=== PATIENT | male | born 1950 | race Caucasian/White ===

== ENCOUNTER 2018-05-03 21:03 | Observation (INO) | payer MEDICARE ==
[~2018-05-03] VITALS: Ht 180.3 cm; Wt 96.6 kg
--- OUTSIDE RECORDS SUMMARY | 2018-05-03 21:06 | XMS REPORT | Clinical Summary ---
Author Author [facility] Address Unknown Phone Unavailable Care Team Providers Care Fuel Cell Binder Name Role Phone Sharpless PCP Allergies No Known Allergies Medications End Date Status Medication Sig Dispensed Refills Start Date Active allopurinol (ZYLOPRIM) Take 300 mg 0 300 MG tablet by mouth daily. Active ferrous sulfate 325 (65 Take 325 mg 0 FE) MG tablet by mouth daily with breakfast. Active sodium chloride, Take 3 mLs by 120 mL 1 hypertonic, (HYPER-JUDI) 7 nebulization 8 % nebulizer solution 2 (two) times daily. Active albuterol (PROVENTIL) 2.5 Take 0.5 mLs 30 mL 0 mg/0.5 mL Nebu nebulizer (2.5 mg 8 solution total) by nebulization 2 (two) times daily. 08/22/2017 Discontinued ibuprofen (ADVIL,MOTRIN) Take 200 mg 0 200 MG tablet by mouth every 6 (six) hours as needed for Pain. 07/25/2017 Discontinued amoxicillin-clavulanate Take 1 tablet 42 tablet 0 (AUGMENTIN) 875-125 mg by mouth 8 per tablet every 12 (twelve) hours for 21 days. 07/25/2017 Discontinued albuterol (PROVENTIL) 2.5 Take 0.5 mLs 30 mL 0 mg/0.5 mL Nebu nebulizer (2.5 mg 8 solution total) by nebulization 2 (two) times daily. 08/15/2017 amoxicillin-clavulanate Take 1 tablet 42 tablet 0 (AUGMENTIN) 875-125 mg by mouth 8 per tablet every 12 (twelve) hours for 21 days. 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) (Primary Dx) 08/22/2017 Orders Only Lab Parth Everett MD Malignant neoplasm of lower lobe, right bronchus or lung (HCC) 08/22/2017 Hospital Radiology Encounter Parth Everett MD Malignant neoplasm of lower lobe, right bronchus or lung (HCC) (Primary Dx) 08/17/2017 Outside Orders Central Scheduling System, Provider Not In 08/11/2017 Outside Orders Central Scheduling Jovany Lamb MD 07/20/2017 Anesthesia Gastroenterology Event Marv Navarro MD COLONOSCOPY,POLYPECTOMY 07/20/2017 Surgery Gastroenterology Linda Tomlin MD 07/19/2017 Anesthesia Gastroenterology Event Grant Rasheed MD BRONCHOSCOPY 07/19/2017 Surgery Gastroenterology Grant Rasheed MD Rehman, Javed, MD Hemoptysis (Primary Dx) 07/19/2017 Hospital Cardiology - Encounter 07/25/2017 after 05/02/2017 Family History Medical History Relation Name Comments COPD Daughter Cancer Daughter Arthritis Father Cancer Father Heart disease Father Kidney disease Father Cancer Mother Relation Name Status Comments Daughter Father Mother Social History Date Tobacco Use Types Packs/Day Years Used Quit: 07/24/1997 Former Smoker Smokeless Tobacco: Never Used Alcohol Use Drinks/Week oz/Week Comments Yes pint of whiskey per week Sex Assigned at Date Recorded Not on file Industry Job Start Date Occupation Not on file Not on file Not on file Travel End Travel History Travel Start No recent travel history available. Last Filed Vital Signs Time Taken Vital Sign Reading 08/22/2017 1:50 PM CDT Blood Pressure 117/74 08/22/2017 1:50 PM CDT Pulse 85 08/22/2017 12:30 PM CDT Temperature 36.6 C (97.8 F) 08/22/2017 1:50 PM CDT Respiratory Rate 22 08/22/2017 1:50 PM CDT Oxygen Saturation 99% 07/24/2017 9:13 PM CDT Inhaled Oxygen 21% Concentration 07/20/2017 8:51 AM CDT Weight 90.3 kg (199 lb) 07/19/2017 5:52 PM CDT Height 180.3 cm (5' 11") 07/20/2017 8:51 AM CDT Body Mass Index 27.75 Plan of Treatment Not on file Procedures Comments Procedure Name Priority Date/Time Associated Diagnosis IR TUNNELED CATHETER Routine 08/22/2017 Malignant neoplasm of REMOVAL 2:07 PM CDT lower lobe, right bronchus or lung (HCC) PLATELET COUNT STAT 08/22/2017 Malignant neoplasm of 11:37 AM CDT hilus of right lung (HCC) PROTHROMBIN TIME/INR STAT 08/22/2017 Malignant neoplasm of 11:37 AM CDT hilus of right lung (HCC) APTT STAT 08/22/2017 Malignant neoplasm of 11:37 AM CDT hilus of right lung (HCC) RHYTHM STRIP - SCAN 07/26/2017 1:30 PM CDT TISSUE EXAM AP Routine 07/25/2017 3:53 PM CDT US CORE BIOPSY Routine 07/25/2017 10:01 AM CDT CBC W/PLT COUNT & AUTO Routine 07/25/2017 DIFFERENTIAL 5:43 AM CDT BASIC METABOLIC PANEL (7) Routine 07/25/2017 5:43 AM CDT CBC W/PLT COUNT & AUTO Routine 07/25/2017 DIFFERENTIAL 5:43 AM CDT CBC W/PLT COUNT & AUTO Routine 07/24/2017 DIFFERENTIAL 5:34 AM CDT BASIC METABOLIC PANEL (7) Routine 07/24/2017 5:34 AM CDT CBC W/PLT COUNT & AUTO Routine 07/24/2017 DIFFERENTIAL 5:34 AM CDT BLOOD CULTURE Routine 07/23/2017 6:07 AM CDT BLOOD CULTURE Routine 07/23/2017 5:12 AM CDT MR BRAIN WITHOUT & WITH Routine 07/22/2017 IV CONTRAST 10:11 PM CDT TRANSFUSION SERVICE 07/22/2017 REPORT - SCAN 5:42 PM CDT XR CHEST 1 VIEW STAT 07/22/2017 PORTABLE/BEDSIDE 3:48 PM CDT NM BONE SCAN WHOLE BODY Routine 07/22/2017 1:53 PM CDT CBC W/PLT COUNT & AUTO Routine 07/22/2017 DIFFERENTIAL 5:11 AM CDT BASIC METABOLIC PANEL (7) Routine 07/22/2017 5:11 AM CDT CBC W/PLT COUNT & AUTO Routine 07/22/2017 DIFFERENTIAL 5:11 AM CDT PREPARE LEUKO-REDUCED RBC Routine 07/21/2017 11:[address] ABDOMEN/PELVIS WITH IV Routine 07/21/2017 CONTRAST 10:35 PM CDT TRANSFUSION SERVICE 07/21/2017 REPORT - SCAN 5:42 PM CDT VANCOMYCIN LEVEL, TROUGH Timed 07/21/2017 12:21 PM CDT CBC W/PLT COUNT & AUTO Routine 07/21/2017 DIFFERENTIAL 4:50 AM CDT BASIC METABOLIC PANEL (7) Routine 07/21/2017 4:50 AM CDT CBC W/PLT COUNT & AUTO Routine 07/21/2017 DIFFERENTIAL 4:50 AM CDT TRANSFUSION SERVICE 07/20/2017 REPORT - SCAN 5:[address] CHEST PE TEST DESIGN Routine 07/20/2017 4:48 PM CDT (CELLAVISION MANUAL DIFF) Routine 07/20/2017 1:19 PM CDT CBC W/PLT COUNT & AUTO Routine 07/20/2017 DIFFERENTIAL 1:19 PM CDT B-TYPE NATRIURETIC FACTOR Routine 07/20/2017 (BNP) 1:19 PM CDT BASIC METABOLIC PANEL (7) Routine 07/20/2017 1:19 PM CDT CBC W/PLT COUNT & AUTO Routine 07/20/2017 DIFFERENTIAL 1:19 PM CDT REPORT OF PROCEDURE - 07/20/2017 ENDOSCOPY URL 10:46 AM CDT REPORT OF PROCEDURE - 07/20/2017 ENDOSCOPY URL 9:53 AM CDT TISSUE EXAM AP Routine 07/20/2017 9:25 AM CDT TRANSFUSE LEUKO-REDUCED Routine 07/20/2017 RED BLOOD CELLS 8:05 AM CDT COLONOSCOPY,BIOPSY 07/20/2017 Iron deficiency anemia 8:00 AM CDT due to chronic blood loss UPPER ENDOSCOPY,BIOPSY 07/20/2017 Iron deficiency anemia 8:00 AM CDT due to chronic blood loss COLONOSCOPY,POLYPECTOMY 07/20/2017 Iron deficiency anemia 8:00 AM CDT due to chronic blood loss TRANSFUSION REACTION STAT 07/20/2017 INVESTIGATION 7:19 AM CDT TRANSFUSE LEUKO-REDUCED Routine 07/20/2017 RED BLOOD CELLS 2:44 AM CDT URINE CULTURE Routine 07/19/2017 10:50 PM CDT URINALYSIS W/ MICROSCOPIC Routine 07/19/2017 10:38 PM CDT XR CHEST 1 VIEW STAT 07/19/2017 PORTABLE/BEDSIDE 9:01 PM CDT POCT-LACTIC ACID, VENOUS Routine 07/19/2017 6:27 PM CDT MISCELLANEOUS LAB ORDER Routine 07/19/2017 6:24 PM CDT BLOOD CULTURE Routine 07/19/2017 6:24 PM CDT BLOOD CULTURE Routine 07/19/2017 6:22 PM CDT TYPE AND SCREEN, LORRI 07/19/2017 AUTOMATED 4:17 PM CDT HEMOGLOBIN AND HEMATOCRIT STAT 07/19/2017 3:44 PM CDT TISSUE EXAM AP Routine 07/19/2017 1:39 PM CDT FUNGUS CULTURE + SMEAR Routine 07/19/2017 1:33 PM CDT AFB CULTURE + SMEAR Routine 07/19/2017 1:33 PM CDT BRONCHIAL CULTURE + GRAM Routine 07/19/2017 STAIN 1:33 PM CDT SPIN/CONCENTRATION CHARGE Routine 07/19/2017 1:33 PM CDT REPORT OF PROCEDURE - 07/19/2017 ENDOSCOPY URL 1:26 PM CDT EBUS FNA REQUEST Routine 07/19/2017 1:00 PM CDT FINE NEEDLE ASPIRATE BY AP Routine 07/19/2017 EBUS 1:00 PM CDT FLOW CYTOMETRY Routine 07/19/2017 REQUISITION 12:53 PM CDT FLOW CYTOMETRY Routine 07/19/2017 12:53 PM CDT EBUS FNA REQUEST Routine 07/19/2017 12:50 PM CDT FINE NEEDLE ASPIRATE BY AP Routine 07/19/2017 EBUS 12:50 PM CDT BASIC METABOLIC PANEL (7) Routine 07/19/2017 11:48 AM CDT CBC (HEMOGRAM ONLY) Routine 07/19/2017 11:48 AM CDT BRONCHOSCOPY,ENDOBRONCHIA 07/19/[address] scan L ULTRASOUND (EBUS) 11:00 AM CDT DIAGNOSTIC/ THERAPEUTIC Case Notes Cinthya changed date Special Needs EBUS BRONCHOSCOPY,BIOPSY 07/19/[address] scan 11:00 AM CDT Case Notes Cinthya changed date Special Needs EBUS BRONCHOSCOPY 07/19/[address] scan 11:00 AM CDT Case Notes Cinthya changed date Special Needs EBUS after 05/02/2017 Results * IR Tunneled Catheter Removal (08/22/2017 2:07 PM CDT) Narrative Performed At FINAL REPORT [facility] Right internal jugular chest port insertion History: Lung cancer. Modality: Sonography and fluoroscopy. Sedation: No sedation was administered. Local anesthesia was achieved with lidocaine 1%. Public Employment Mediator:Claude Hameed MD Financial Administrator:Marquez Pendleton Approach: Right internal jugular vein Estimated blood loss:< 5 cc. Specimen: None. Fluoroscopy Time: 0.8 min. Reference Air Kerma (Ka, r): 10.8 mGy. Technique: Informed written consent was obtained. Discussion of risks, benefits, and alternatives were made with the patient. The patient expressed understanding and agreed to proceed.A universal timeout was performed prior to starting the procedure.All elements maximal sterile barrier technique was utilized for this procedure, including utilization of sterile scrub solution for skin prep, a large sterile sheet to cover the areas of the patient that were not prepped, and hand hygiene, mask, head covering, and sterile gown for performing radiologist and scrub technologist. The skin was anesthetized with 2% lidocaine.Ultrasound evaluation showed a patent and compressible right internal jugular vein, which was punctured under direct real-time ultrasound guidance with a micropuncture needle.An ultrasound image was saved to PACS. A 0.018 inch wire was placed through the needle into the right atrium. A 4 Azerbaijani micropuncture sheath was placed. A subcutaneous tunnel and pocket were created in the right anterior chest wall by blunt dissection.The pocket was flushed with antibiotic solution. A 6F Bard port was placed within the pocket and the catheter brought through the tunnel. The catheter was cut at 20 cm. A peel-away sheath was placed in the right IJ vein and the catheter was advanced through the sheath, with its distal tip terminating in the cavoatrial junction. The peel-away sheath was removed. The port was flushed and aspirated easily following placement.The skin incision was closed with 3-0 running subcuticular Monocryl and Steri-Strips.The small jugular incision site was closed using Steri-Strips.The patient tolerated the procedure well and left the department in the same condition. Patient received 1 gram of Vancomycin intravenously pre-procedure. Results:Spot radiograph of the chest demonstrates the new right IJ Port-A-Cath to lie in the expected position with its tip overlying the cavoatrial junction. Impression: Successful, uncomplicated placement of a right internal jugular chest port. The port is ready for immediate use. Signed: Claude Hameed MD Report Verified Date/Time:08/22/2017 17:17:05 Reading Location: [place] [id number] Angio Body Reading Room Procedure Note Interface, External Ris In - 08/22/2017 5:19 PM CDT FINAL REPORT Right internal jugular chest port insertion History: Lung cancer. Modality: Sonography and fluoroscopy. Sedation: No sedation was administered. Local anesthesia was achieved with lidocaine 1%. Public Employment Mediator: Claude Hameed MD Financial Administrator: Marquez Pendleton Approach: Right internal jugular vein Estimated blood loss: < 5 cc. Specimen: None. Fluoroscopy Time: 0.8 min. Reference Air Kerma (Ka, r): 10.8 mGy. Technique: Informed written consent was obtained. Discussion of risks, benefits, and alternatives were made with the patient. The patient expressed understanding and agreed to proceed. A universal timeout was performed prior to starting the procedure. All elements maximal sterile barrier technique was utilized for this procedure, including utilization of sterile scrub solution for skin prep, a large sterile sheet to cover the areas of the patient that were not prepped, and hand hygiene, mask, head covering, and sterile gown for performing radiologist and scrub technologist. The skin was anesthetized with 2% lidocaine. Ultrasound evaluation showed a patent and compressible right internal jugular vein, which was punctured under direct real-time ultrasound guidance with a micropuncture needle. An ultrasound image was saved to PACS. A 0.018 inch wire was placed through the needle into the right atrium. A 4 Azerbaijani micropuncture sheath was placed. A subcutaneous tunnel and pocket were created in the right anterior chest wall by blunt dissection. The pocket was flushed with antibiotic solution. A 6F Bard port was placed within the pocket and the catheter brought through the tunnel. The catheter was cut at 20 cm. A peel-away sheath was placed in the right IJ vein and the catheter was advanced through the sheath, with its distal tip terminating in the cavoatrial junction. The peel-away sheath was removed. The port was flushed and aspirated easily following placement. The skin incision was closed with 3-0 running subcuticular Monocryl and Steri-Strips. The small jugular incision site was closed using Steri-Strips. The patient tolerated the procedure well and left the department in the same condition. Patient received 1 gram of Vancomycin intravenously pre-procedure. Results: Spot radiograph of the chest demonstrates the new right IJ Port-A-Cath to lie in the expected position with its tip overlying the cavoatrial junction. Impression: Successful, uncomplicated placement of a right internal jugular chest port. The port is ready for immediate use. Signed: Claude aHmeed MD Report Verified Date/Time: 08/22/2017 17:17:05 Reading Location: [facility] B1 [id number] Angio Body Reading Room Performing Organization Address [facility] Phone Number GE [facility] * aPTT (08/22/2017 11:37 AM CDT) PTT 27.8 22.5 - 36.0 seconds [facility] Specimen Blood Performing Organization Address [facility] Phone Number [place] [phone] * Prothrombin time/INR (08/22/2017 11:37 AM CDT) Protime 13.2 11.7 - 14.7 seconds [facility] INR 1.0 <=5.9 [facility] Specimen Blood Narrative Performed At RECOMMENDED COUMADIN/WARFARIN INR THERAPY RANGES [facility] STANDARD DOSE: 2.0 - 3.0 Includes: PROPHYLAXIS for venous thrombosis, [facility] systemic embolization; TREATMENT for venous thrombosis and/or pulmonary embolus. HIGH RISK: Target INR is 2.5-3.5 for patients with mechanical heart valves. Performing Organization Address [facility]/[employer] [place] [address] [phone] [place] [address] * Platelet count (08/22/2017 11:37 AM CDT) Platelets 246 150 - 450 K/CU MM [facility] Specimen Blood Performing Organization Address City/[facility]/[employer] Phone Number [facility] [address] [address] [facility] * RHYTHM STRIP - SCAN (07/26/2017 1:30 PM CDT) Narrative Performed At * Tissue Exam (07/25/2017 3:53 PM CDT) Only the most recent of 3 results within the time period is included. Case Report Surgical Pathology [facility] Report [facility] Case: [id number] Authorizing Provider:Grant Rasheed MDCollecte d: 07/25/2017 1553 Ordering Location: [address] Received: 07/25/2017 1554 Service Pathologist: Josue Elliott MD Specimen:Leg, Left DIAGNOSIS PART A LEFT LEG MASS, BIOPSY: [facility] INVASIVE CARCINOMA WITH [facility] SQUAMOUS DIFFERENTIATION. Signing Pathologist Direct Phone Line: [phone] COMMENT Immunohistochemical studies [facility] performed on block A1 [facility] demonstrate the neoplastic cells to be positive for p40. They are negative for CK7 and CK20. CPT Code(s) 09315, 55336, [address]37 [facility] CLINICAL HISTORY Left leg mass concerning for [facility] mets, known lung cancer [facility] SPECIMEN SOURCE Left leg mass biopsy [facility] GROSS DESCRIPTION The specimen is received in a [facility] formalin-filled container and [facility] labeled with the patient's information and labeled "left leg mass biopsy" and consists of three off white core biopsies ranging in length from 1 to 1.7 cm, submitted A1. CG/pl SPECIAL STUDIES The following special studies [facility] were performed on this case [facility] and the interpretation is incorporated in the diagnostic report above: BLOCK A1- P40, CK7, CK20 The immunohistochemistry test was developed and its performance characteristics determined by [facility], Pathology Laboratory. It has not been cleared or approved by the U.S. Food and Drug Administration. The FDA has determined that such clearance or approval is not necessary. The test is used for clinical purposes. It should not be regarded as investigational or for research. This laboratory is certified under the Clinical Laboratory Improvement Amendments of 1988 (CLIA-88) as qualified to perform high complexity clinical laboratory testing. Specimen Tissue - Leg, Left Performing Organization Address City/State/Zipcode Phone Number [facility] [address] [place] [address] [facility] * US Core Biopsy (07/25/2017 10:01 AM CDT) Narrative Performed At FINAL REPORT [facility] PROCEDURE: Ultrasound-guided core biopsy of left thigh mass. INDICATION: 66-year-old man with left leg mass. COMPARISON: None. DESCRIPTION: After obtaining informed written consent, the patient was brought to the procedure room and placed in the supine position. Preliminary ultrasound scan of the left thigh revealed a 4.3 x 1.6 x 2.7 cm hypoechoic mass in the subcutaneous tissues of the anterior left thigh correlating with area of palpable abnormality. This mass was targeted for biopsy. The overlying skin was prepped and draped in the usual, sterile fashion and local 1% lidocaine anesthesia was administered. Under ultrasound guidance, three core biopsy samples of the mass were obtained using an 18-gauge Argon core biopsy needle. Follow-up exam revealed no evidence for hematoma. There were no immediate complications. IMPRESSION: Uncomplicated ultrasound-guided core biopsy of left thigh mass. Signed: Jimmy Lam MD Report Verified Date/Time:07/25/2017 10:14:14 Reading Location: [facility] [id number] Ultrasound Reading Room Procedure Note Interface, External Ris In - 07/25/2017 10:16 AM CDT FINAL REPORT PROCEDURE: Ultrasound-guided core biopsy of left thigh mass. INDICATION: 66-year-old man with left leg mass. COMPARISON: None. DESCRIPTION: After obtaining informed written consent, the patient was brought to the procedure room and placed in the supine position. Preliminary ultrasound scan of the left thigh revealed a 4.3 x 1.6 x 2.7 cm hypoechoic mass in the subcutaneous tissues of the anterior left thigh correlating with area of palpable abnormality. This mass was targeted for biopsy. The overlying skin was prepped and draped in the usual, sterile fashion and local 1% lidocaine anesthesia was administered. Under ultrasound guidance, three core biopsy samples of the mass were obtained using an 18-gauge Argon core biopsy needle. Follow-up exam revealed no evidence for hematoma. There were no immediate complications. IMPRESSION: Uncomplicated ultrasound-guided core biopsy of left thigh mass. Signed: Jimmy Lam MD Report Verified Date/Time: 07/25/2017 10:14:14 Reading Location: [facility] [id number] Ultrasound Reading Room Performing Organization Address City/State/Zipcode Phone Number [facility] * CBC with platelet count + automated diff (07/25/2017 5:43 AM CDT) Only the most recent of 5 results within the time period is included. WBC 10.2 3.5 - 10.5 K/L [facility] RBC 3.88 (L) 4.63 - 6.08 M/L [facility] Hemoglobin 8.9 (L) 13.7 - 17.5 GM/DL [facility] Hematocrit 29.4 (L) 40.1 - 51.0 % [facility] MCV 75.8 (L) 79.0 - 92.2 fL [facility] MCH 22.9 (L) 25.7 - 32.2 pg [facility] MCHC 30.3 (L) 32.3 - 36.5 GM/DL [facility] RDW 19.2 (H) 11.6 - 14.4 % [facility] Platelets 541 (H) 150 - 450 K/CU MM [facility] MPV 8.6 (L) 9.4 - 12.4 fL [facility] nRBC 0 0 - 0 /100 WBC [facility] % Neutros 71 % [facility] % Lymphs 20 % [facility] % Monos 6 % [facility] % Eos 2 % [facility] % Baso 1 % [facility] # Neutros 7.22 (H) 1.78 - 5.38 K/L [facility] # Lymphs 2.04 1.32 - 3.57 K/L [facility] # Monos 0.62 0.30 - 0.82 K/L [facility] # Eos 0.24 0.04 - 0.54 K/L [facility] # Baso 0.05 0.01 - 0.08 K/L [facility] Immature 1 0 - 1 % [facility] Granulocytes-[facility] Specimen Blood Performing Organization Address City/State/Zipcode Phone Number [facility] [address] [place] [address] MEDICAL CENTER * Basic Metabolic Panel (07/25/2017 5:43 AM CDT) Only the most recent of 6 results within the time period is included. Sodium 136 136 - 145 meq/L [facility] Potassium 3.9 3.5 - 5.1 meq/L [facility] Chloride 99 98 - 107 meq/L [facility] CO2 28 22 - 29 meq/L [facility] BUN 8 7 - 21 mg/dL [facility] Creatinine 0.68 0.57 - 1.25 mg/dL [facility] Glucose 97 70 - 105 mg/dL [facility] Calcium 7.9 (L) 8.4 - 10.2 mg/dL [facility] EGFR 117Comment: ESTIMATED GFR IS mL/min/1.73 sq m [facility] NOT ACCURATE CREATININE [facility] CLEARANCE IN PREDICTING GLOMERULAR FILTRATION RATE. ESTIMATED GFR IS NOT APPLICABLE FOR DIALYSIS PATIENTS. Specimen Blood Performing Organization Address City/State/Zipcode Phone Number [facility] [address] [place] [address] [facility] * Blood culture (07/23/2017 6:07 AM CDT) Only the most recent of 4 results within the time period is included. Result No growth in 5 days [facility] Specimen Blood - Central Venous Line Performing Organization Address City/State/Zipcode Phone Number [facility] [address] [place] [address] [facility] * MR brain without & with IV contrast (07/22/2017 10:11 PM CDT) Narrative Performed At FINAL REPORT [employer] [facility] Exam: MRI brain with and without contrast Comparison:No prior study for comparison. Reason for exam: lung cancer. for staging Discussion: Multiplanar multi sequential MR imaging of the brain was performed [id number] IV gadolinium administration. There are multiple punctate FLAIR hyperintensities in the bilateral subcortical and periventricular white matter without mass effect, nonspecific. There is no intracranial mass, mass effect, extra-axial collection, hydrocephalus or herniation.There is no restricted diffusion to suggest an acute infarct. There is no abnormality on susceptibility sequences to suggest hemorrhage or hemosiderin deposition. There is no abnormal enhancement. The skull base flow-voids are seen in keeping with their patency. There is moderate pansinus mucosal inflammatory disease. The visualized mastoid air cells are clear. The orbits, sella and parasellar regions are unremarkable. There is asymmetric thickening of the right occipital condyle without abnormal signal or enhancement, which may be congenital or posttraumatic. Impressions: No evidence of intracranial metastases. Multiple punctate FLAIR white matter hyperintensities, nonspecific but may represent white matter microvascular ischemic change. Asymmetric thickening of the right occipital bone without abnormal signal or enhancement which may be congenital or posttraumatic. Noncontrast cervical spine CT is recommended for further evaluation. Signed: Sagar Munoz MD Report Verified Date/Time:07/22/2017 23:58:16 Reading Location: [address] Reading Room Procedure Note Interface, External Ris In - 07/23/2017 12:00 AM CDT FINAL REPORT Exam: MRI brain with and without contrast Comparison: No prior study for comparison. Reason for exam: lung cancer. for staging Discussion: Multiplanar multi sequential MR imaging of the brain was performed [id number] IV gadolinium administration. There are multiple punctate FLAIR hyperintensities in the bilateral subcortical and periventricular white matter without mass effect, nonspecific. There is no intracranial mass, mass effect, extra-axial collection, hydrocephalus or herniation. There is no restricted diffusion to suggest an acute infarct. There is no abnormality on susceptibility sequences to suggest hemorrhage or hemosiderin deposition. There is no abnormal enhancement. The skull base flow-voids are seen in keeping with their patency. There is moderate pansinus mucosal inflammatory disease. The visualized mastoid air cells are clear. The orbits, sella and parasellar regions are unremarkable. There is asymmetric thickening of the right occipital condyle without abnormal signal or enhancement, which may be congenital or posttraumatic. Impressions: No evidence of intracranial metastases. Multiple punctate FLAIR white matter hyperintensities, nonspecific but may represent white matter microvascular ischemic change. Asymmetric thickening of the right occipital bone without abnormal signal or enhancement which may be congenital or posttraumatic. Noncontrast cervical spine CT is recommended for further evaluation. Signed: Sagar Munoz MD Report Verified Date/Time: 07/22/2017 23:58:16 Reading Location: [address] Transitional Reading Room Performing Organization Address City/State/Zipcode Phone Number [facility] * TRANSFUSION SERVICE REPORT - SCAN (07/22/2017 5:42 PM CDT) Only the most recent of 3 results within the time period is included. Narrative Performed At * XR chest 1 view portable / bedside (07/22/2017 3:48 PM CDT) Only the most recent of 2 results within the time period is included. Narrative Performed At FINAL REPORT [facility] Chest one view AP 07/22/2017 3:55 PM CLINICAL INDICATION: post picc line insertion COMPARISON: 07/19/2017 IMPRESSION: The tip of a right PICC projects over the superior vena cava. Pleural parenchymal opacity in the right lower lung and hemithorax is unchanged. A large volume hiatal hernia remains evident, with compressive atelectasis in the adjacent left lower lung. Cardiomediastinal contours are stable. The central pulmonary vasculature is not engorged. Signed: Elio Reagan MD Report Verified Date/Time:07/22/2017 15:56:09 Reading Location: [facility] C013 Consult Reading Room Procedure Note Interface, External Ris In - 07/22/2017 5:22 PM CDT FINAL REPORT Chest one view AP 07/22/2017 3:55 PM CLINICAL INDICATION: post picc line insertion COMPARISON: 07/19/2017 IMPRESSION: The tip of a right PICC projects over the superior vena cava. Pleural parenchymal opacity in the right lower lung and hemithorax is unchanged. A large volume hiatal hernia remains evident, with compressive atelectasis in the adjacent left lower lung. Cardiomediastinal contours are stable. The central pulmonary vasculature is not engorged. Signed: Elio Reagan MD Report Verified Date/Time: 07/22/2017 15:56:09 Reading Location: [facility] C013 Consult Reading Room Performing Organization Address City/State/Zipcode Phone Number [facility] * NM bone scan whole body (07/22/2017 1:53 PM CDT) Narrative Performed At FINAL REPORT [facility] PROCEDURE: BONE SCAN, WHOLE BODY CPT CODE:42297 INDICATION:Non-small cell lung cancer staging PROTOCOL:22.0 mCi of Tc-99m MDP was injected intravenously. Whole body and selected spot images were obtained approximately 3 hours later. FINDINGS: -Focal area of mildly increased uptake at the left 5th costochondral cartilage. -Moderate increase in activity in the left foot, predominantly of the ankle and first MTP joint. -Mild increase in tracer activity in the shoulders, wrists, knees, and right foot and ankle. IMPRESSION: 1.No evidence of osseous metastatic lesion. 2.Left foot/ankle findings may be degenerative and/or inflammatory (gout) given patient's provided history. 3.Degenerative changes of the spine and peripheral joints. Images for comparison/correlation were chest CT 07/20/2017. Abdomen and pelvis CT 07/21/2017. Signed: Parisa Berger MD Report Verified Date/Time:07/22/2017 15:06:09 Reading Location: [address] [facility] Reading Room Procedure Note Interface, External Ris In - 07/22/2017 3:08 PM CDT FINAL REPORT PROCEDURE: BONE SCAN, WHOLE BODY CPT CODE: [id number] INDICATION: Non-small cell lung cancer staging PROTOCOL: 22.0 mCi of Tc-99m MDP was injected intravenously. Whole body and selected spot images were obtained approximately 3 hours later. FINDINGS: -Focal area of mildly increased uptake at the left 5th costochondral cartilage. -Moderate increase in activity in the left foot, predominantly of the ankle and first MTP joint. -Mild increase in tracer activity in the shoulders, wrists, knees, and right foot and ankle. IMPRESSION: 1.No evidence of osseous metastatic lesion. 2.Left foot/ankle findings may be degenerative and/or inflammatory (gout) given patient's provided history. 3.Degenerative changes of the spine and peripheral joints. Images for comparison/correlation were chest CT 07/20/2017. Abdomen and pelvis CT 07/21/2017. Signed: Parisa Berger MD Report Verified Date/Time: 07/22/2017 15:06:09 Reading Location: [address] Med Reading Room Performing Organization Address [facility] Phone Number [facility] * Prepare Leuko-Red RBC (07/21/2017 11:54 PM CDT) CROSSMATCH COMPATIBLE SAFETRACE TX Unit ABO O Pos SAFETRACE TX UNIT NUMBER [id number] SAFETRACE TX Status TRANSFUSED SAFETRACE TX Blood Bank Product RED BLOOD CELLS SAFETRACE TX PRODUCT CODE [id number] SAFETRACE TX CROSSMATCH COMPATIBLE SAFETRACE TX Unit ABO O Pos SAFETRACE TX UNIT NUMBER [id number] SAFETRACE TX Status TRANSFUSED SAFETRACE TX Blood Bank Product RED BLOOD CELLS SAFETRACE TX PRODUCT CODE [id number] SAFETRACE TX Specimen Other Performing Organization Address [facility] Phone Number SAFETRACE TX * CT abdomen/pelvis with IV contrast (07/21/2017 10:35 PM CDT) Narrative Performed At FINAL REPORT [facility] EXAM: CT of the abdomen and pelvis, with contrast CLINICAL HISTORY: Neoplasm. Suspect abdominal metastatic disease. TECHNIQUE: CT of the abdomen and pelvis was performed with intravenous contrast administration.This exam was performed according to our departmental dose optimization program which includes automated exposure control, adjustment of the mA and/or kV according to patient's size and/or use of iterative reconstructive technique. COMPARISON:No prior study for direct comparison. Correlation is made with chest CT 07/20/2017. FINDINGS: LOWER CHEST: Large hiatal hernia/intrathoracic stomach, partially imaged. Partially imaged large masslike lesion in the right lower lobe which may represent necrotic neoplasm however superimposed infection cannot be excluded. Small right pleural effusion. LIVER: Hepatomegaly. No focal lesions. BILE DUCTS: Within normal limits. GALL BLADDER: Within normal limits. PANCREAS: Within normal limits. SPLEEN: Within normal limits. ADRENALS: Within normal limits. KIDNEYS/URETERS: 2.1 x 1.8 cm simple right lower pole cyst. Unremarkable left kidney. No hydronephrosis or radiopaque stones. URINARY BLADDER:Nearly collapsed which limits its evaluation. Mild hyperdensity within the urinary bladder which likely represents contrast. REPRODUCTIVE ORGANS: Within normal limits. BOWEL/MESENTERY: Sigmoid diverticulosis without acute diverticulitis. Mild diffuse mesenteric congestion, nonspecific. No bowel obstruction or abnormal wall thickening. Normal appendix. PERITONEUM/RETROPERITONEUM: No free air, free fluid or fluid collection. VESSELS: Mild atherosclerotic calcifications of the aorta and branches. LYMPH NODES: No abdominal or pelvic lymphadenopathy. SOFT TISSUES: Small fat-containing left inguinal hernia. Moderate fat-containing right periumbilical hernia, with fatty stranding, which may represent edema/venous congestion. BONES: Multilevel degenerative changes of the visualized spine. No suspicious osseous lesions. IMPRESSION: No evidence of metastatic disease in the abdomen or pelvis. Large hiatal hernia/intrathoracic stomach. Hepatomegaly. Small right renal cyst. Small right pleural effusion. Partially imaged lesion in the right lower lobe which may represent necrotic neoplasm however superimposed infection cannot be excluded. Please see separately dictated chest CT for details. Signed: Sagar Munoz MD Report Verified Date/Time:07/22/2017 04:37:15 Reading Location: [address] Transitional Reading Room Procedure Note Interface, External Ris In - 07/22/2017 4:39 AM CDT FINAL REPORT EXAM: CT of the abdomen and pelvis, with contrast CLINICAL HISTORY: Neoplasm. Suspect abdominal metastatic disease. TECHNIQUE: CT of the abdomen and pelvis was performed with intravenous contrast administration. This exam was performed according to our departmental dose optimization program which includes automated exposure control, adjustment of the mA and/or kV according to patient's size and/or use of iterative reconstructive technique. COMPARISON: No prior study for direct comparison. Correlation is made with chest CT 07/20/2017. FINDINGS: LOWER CHEST: Large hiatal hernia/intrathoracic stomach, partially imaged. Partially imaged large masslike lesion in the right lower lobe which may represent necrotic neoplasm however superimposed infection cannot be excluded. Small right pleural effusion. LIVER: Hepatomegaly. No focal lesions. BILE DUCTS: Within normal limits. GALL BLADDER: Within normal limits. PANCREAS: Within normal limits. SPLEEN: Within normal limits. ADRENALS: Within normal limits. KIDNEYS/URETERS: 2.1 x 1.8 cm simple right lower pole cyst. Unremarkable left kidney. No hydronephrosis or radiopaque stones. URINARY BLADDER: Nearly collapsed which limits its evaluation. Mild hyperdensity within the urinary bladder which likely represents contrast. REPRODUCTIVE ORGANS: Within normal limits. BOWEL/MESENTERY: Sigmoid diverticulosis without acute diverticulitis. Mild diffuse mesenteric congestion, nonspecific. No bowel obstruction or abnormal wall thickening. Normal appendix. PERITONEUM/RETROPERITONEUM: No free air, free fluid or fluid collection. VESSELS: Mild atherosclerotic calcifications of the aorta and branches. LYMPH NODES: No abdominal or pelvic lymphadenopathy. SOFT TISSUES: Small fat-containing left inguinal hernia. Moderate fat-containing right periumbilical hernia, with fatty stranding, which may represent edema/venous congestion. BONES: Multilevel degenerative changes of the visualized spine. No suspicious osseous lesions. IMPRESSION: No evidence of metastatic disease in the abdomen or pelvis. Large hiatal hernia/intrathoracic stomach. Hepatomegaly. Small right renal cyst. Small right pleural effusion. Partially imaged lesion in the right lower lobe which may represent necrotic neoplasm however superimposed infection cannot be excluded. Please see separately dictated chest CT for details. Signed: Sagar Munoz MD Report Verified Date/Time: 07/22/2017 04:37:15 Reading Location: [facility] B1 C013T Transitional Reading Room Performing Organization Address City/State/Zipcode Phone Number [facility] * Vancomycin level, trough (07/21/2017 12:21 PM CDT) Vancomycin Tr 9.6 (L) 10.0 - 20.0 ug/mL [facility] Specimen Blood - Arm, Right Performing Organization Address City/State/Zipcode Phone Number [facility] [address] [place] [address] MEDICAL [facility]ENTER * CT chest for pulmonary embolus (07/20/2017 4:48 PM CDT) Narrative Performed At FINAL REPORT [facility] HISTORY: Chest pain, acute, PE suspected, low pretest prob sob, tachy COMPARISON : No prior chest CT is available for comparison. However, a chest x-ray dated 07/19/2017 is available for comparison Technique : Multiple axial images of the chest were performed from the lung apices to the lung bases with 5 mm slice thickness with the administration of IV contrast. Images were further reconstructed with 2 mm slice thickness through the pulmonary arteries. This exam was performed according to our departmental dose optimization program which includes automated exposure control, adjustment of the mA and/or kV according to patient size and/or use of iterative reconstructive technique. Comment: The thyroid gland is within normal limits. There are numerous enlarged mediastinal lymph nodes. For example, there is an enlarged subcarinal lymph node measuring up to 3.8 x 2.3 cm. There is no axillary lymphadenopathy, however. There is atherosclerotic vascular disease with some coronary atherosclerosis. There is a large size hiatal hernia/intrathoracic stomach. The visualized portions of the liver, spleen, adrenal glands, pancreas, and kidneys are within normal limits. Multilevel degenerative changes of the thoracic spine are seen. No pneumothorax is visualized. There is a large masslike area identified occupying the right lower lobe measuring up to 13.8 x 13.0 cm. There are several fluid attenuation spaces identified within this masslike area with the largest measuring up to 5.6 x 4.6 cm. These could represent areas of necrosis or infection. Several of these locules also contain air. No thrombus is identified in the main pulmonary arteries or the major subsegmental branches. Of note, evaluation for thrombus in the smaller subsegmental branches is limited secondary to the inherent technique of the examination. Impression: 1. No pulmonary embolism identified. 2. Large masslike lesion occupying the right lower lobe with cystic/fluid attenuation foci and air. This could represent a large neoplasm with necrosis or superimposed infection. Pneumonitis with areas of abscess formation/necrosis is also in the differential. 3. Multiple enlarged mediastinal lymph nodes. 4. Large sized hiatal hernia/intrathoracic stomach. Signed: Sundeep Monroy MD Report Verified Date/Time:07/20/2017 17:11:25 Reading Location: [facility] C013Y CT Body Reading Room Procedure Note Interface, External Ris In - 07/20/2017 5:13 PM CDT FINAL REPORT HISTORY: Chest pain, acute, PE suspected, low pretest prob sob, tachy COMPARISON : No prior chest CT is available for comparison. However, a chest x-ray dated 07/19/2017 is available for comparison Technique : Multiple axial images of the chest were performed from the lung apices to the lung bases with 5 mm slice thickness with the administration of IV contrast. Images were further reconstructed with 2 mm slice thickness through the pulmonary arteries. This exam was performed according to our departmental dose optimization program which includes automated exposure control, adjustment of the mA and/or kV according to patient size and/or use of iterative reconstructive technique. Comment: The thyroid gland is within normal limits. There are numerous enlarged mediastinal lymph nodes. For example, there is an enlarged subcarinal lymph node measuring up to 3.8 x 2.3 cm. There is no axillary lymphadenopathy, however. There is atherosclerotic vascular disease with some coronary atherosclerosis. There is a large size hiatal hernia/intrathoracic stomach. The visualized portions of the liver, spleen, adrenal glands, pancreas, and kidneys are within normal limits. Multilevel degenerative changes of the thoracic spine are seen. No pneumothorax is visualized. There is a large masslike area identified occupying the right lower lobe measuring up to 13.8 x 13.0 cm. There are several fluid attenuation spaces identified within this masslike area with the largest measuring up to 5.6 x 4.6 cm. These could represent areas of necrosis or infection. Several of these locules also contain air. No thrombus is identified in the main pulmonary arteries or the major subsegmental branches. Of note, evaluation for thrombus in the smaller subsegmental branches is limited secondary to the inherent technique of the examination. Impression: 1. No pulmonary embolism identified. 2. Large masslike lesion occupying the right lower lobe with cystic/fluid attenuation foci and air. This could represent a large neoplasm with necrosis or superimposed infection. Pneumonitis with areas of abscess formation/necrosis is also in the differential. 3. Multiple enlarged mediastinal lymph nodes. 4. Large sized hiatal hernia/intrathoracic stomach. Signed: Sundeep Monroy MD Report Verified Date/Time: 07/20/2017 17:11:25 Reading Location: [facility] C013Y CT Body Reading Room Performing Organization Address City/State/Zipcode Phone Number [facility] * Manual Differential (07/20/2017 1:19 PM CDT) % Neutros 86 % [facility] % Lymphs 9 % [facility] % Monos 4 % [facility] % Bands 1 0 - 10 % [facility] # Neutros 12.13 (H) 1.78 - 5.38 K/ul [facility] # Lymphs 1.27 (L) 1.32 - 3.57 K/ul [facility] # Monos 0.56 0.30 - 0.82 K/uL [facility] # Bands 0.14 0.00 - 0.80 K/uL [facility] Total Counted 100 [facility] Platelet Morphology Normal [facility] Toxic Granulation Present [facility] Anisocytosis 1+ few [facility] Microcytes 1+ few [facility] Poikilocytes 1+ few [facility] Artifact Present [facility] Platelet Conc Adequate [facility] Specimen Blood - Arm, Right Narrative Performed At Received comment: [facility] User comments: [facility] Slide comments: Performing Organization Address City/State/Zipcode Phone Number [facility] [address] [place] [address] [facility] * B-type Natriuretic Factor (BNP) (07/20/2017 1:19 PM CDT) BNP 92 0 - 100 pg/mL [facility] Specimen Blood - Arm, Right Performing Organization Address [facility]/Zipcode Phone Number [facility] [address] [place] [address] [phone] [address] * REPORT OF PROCEDURE - ENDOSCOPY URL (07/20/2017 10:46 AM CDT) Narrative Performed At * REPORT OF PROCEDURE - ENDOSCOPY URL (07/20/2017 9:53 AM CDT) Narrative Performed At * Transfuse Leuko-Red RBC (07/20/2017 8:05 AM CDT) Only the most recent of 3 results within the time period is included. * Transfusion Reaction Investigation (07/20/2017 7:19 AM CDT) TRANSFUSION RX SEE COMMENT [facility] INVESTIGATION(BEAKER) [facility] Specimen Blood Narrative Performed At Symptoms most likely due to underlying disease: The patient had a decrease in O2 [facility] saturation from 96% to 92% after transfusion of RBCs. No other changes in vital [facility] signs noted. Blood bank work-up was negative for evidence of immune mediated [facility] hemolysis or clerical error. Patient has a new diagnosis of lung cancer, normal BNP and O2 saturations prior to transfusion which were also decreased. Symptoms were most likely related to the patient's underlying disease and only temporally associated with transfusion. Electronic Signature: Akiko Johnson M.D. Performing Organization Address [facility]/Zipcode Phone Number [facility] [address] [place] [address] [facility] * Urine culture (07/19/2017 10:50 PM CDT) Result No growth [facility] Specimen Urine - Urine, Voided Performing Organization Address City/[facility]/Zipcode Phone Number [facility] [address] [place] [phone] [facility] * Urinalysis w/Microscopic (07/19/2017 10:38 PM CDT) Color, UA Yellow [facility] Clarity, UA Hazy [facility] Specific [place], UA 1.020 1.001 - 1.035 [facility] pH, UA 5.5 5.0 - 8.0 [facility] Protein, UA 70 mg/dL (A) Negative [facility] Glucose, UA Negative Negative [facility] Ketones, UA Negative Negative [facility] Bilirubin, UA Negative Negative [facility] Blood, UA Negative Negative [facility] Nitrite, UA Negative Negative [facility] Leukocytes, UA Negative Negative [facility] Urobilinogen, UA 4.0 (H) 0.2 - 1.0 mg/dL [facility] RBC, UA 1 /HPF [facility] WBC, UA 1 /HPF [facility] Mucus Moderate [facility] Squam Epithel, UA <1 /HPF [facility] Casts 7 /LPF [facility] Specimen Source [facility] Specimen Urine Performing Organization Address City/State/Zipcode Phone Number [facility] [address] [place] [address] [facility] * POC-Lactic Acid, Venous (07/19/2017 6:27 PM CDT) POC-Lactic Acid, Venous 1.3Comment: TESTED AT [facility] 0.9 - 1.7 mmol/L [address] Specimen Blood Performing Organization Address [facility] [place] [address] [phone] [address] * BCID (07/19/2017 6:24 PM CDT) Scan Result [facility] Specimen Blood Narrative Performed At [facility] Result comments: [facility] HAEMOPHILUS INFLUENZA DETECTED First line therapy: ceftriaxone meropenem if critically ill or history of an ESBL producing pathogen De-escalate based on susceptibilities Other organisms and resistance markers not contained in this PCR panel cannot be excluded and follow-up of traditional culture results is required. This sample was tested at the [facility] Clinical Microbiology Laboratory using the Transpond Blood Culture ID Panel. This test is FDA cleared for in vitro diagnostic use and has been verified and approved by the [facility] Clinical Microbiology laboratory for clinical use. Reference Range: Not Detected Performing Organization Address [facility] Phone Number [address] * Type and screen, automated (07/19/2017 4:17 PM CDT) ABO/RH AUTOMATED (BEAKER) O POSITIVE [facility] Ab Scrn NEGATIVE [facility] Specimen Blood Performing Organization Address City/[facility] Phone Number [address] [address] [phone] [place] [address] * Hemoglobin and hematocrit (07/19/2017 3:44 PM CDT) Hemoglobin 7.9 (L) 13.7 - 17.5 GM/DL [facility] Hematocrit 26.8 (L) 40.1 - 51.0 % [facility] Specimen Blood Performing Organization Address [facility] Phone Number [facility] [address], [place] [phone] [facility] * AFB culture + smear (07/19/2017 1:33 PM CDT) Result No acid-fast bacilli isolated [facility] in 42 days [facility] AFB Smear No acid fast bacilli seen [facility] Specimen Bronch Washing - Lung, Right Performing Organization Address City/[facility]/Zipcode Phone Number [facility] [address] [place] [phone] [facility] * Bronchial culture + gram stain (07/19/2017 1:33 PM CDT) Result HAEMOPHILUS INFLUENZAE [facility] (A)Comment: Beta-lactamase [facility] negative Gram Stain Result 1+ WBCs [facility] Gram Stain Result <1+ gram positive cocci in [facility] chains and pairs [facility] Specimen Bronch Washing - Lung, Right Narrative Performed At 2+ Normal respiratory bethany present [facility] Performing Organization Address City/[facility] Phone Number [address] [address] [phone] [place] [address] * Fungus culture + smear (07/19/2017 1:33 PM CDT) Result No fungus isolated in 28 days [facility] Fungus Smear No fungi seen [facility] Specimen Bronch Washing - Lung, Right Performing Organization Address City/[facility]/Zipcode Phone Number [facility] [address] [place] [address] [phone] [facility] * SPIN/CONCENTRATION CHARGE (07/19/2017 1:33 PM CDT) Concentration charged Done [facility] Specimen Bronch Washing - Lung, Right Performing Organization Address City/[facility]/Zipcode Phone Number [place] [phone] [place] [address] [facility] * REPORT OF PROCEDURE - ENDOSCOPY URL (07/19/2017 1:26 PM CDT) Narrative Performed At * EBUS FNA REQUEST (07/19/2017 1:00 PM CDT) Only the most recent of 2 results within the time period is included. Cytology See Separate Report [facility] Specimen EBUS Fine Needle Aspirate - Lung, Right Lower Lobe Performing Organization Address City/State/Zipcode Phone Number [address] [address] MEDICAL CENTER * Fine Needle Aspiration by EBUS (07/19/2017 1:00 PM CDT) Only the most recent of 2 results within the time period is included. Case Report Medical Cytology [facility] Report [facility] Case: [id number] Authorizing Provider:Grant Rasheed MDCollecte d: 07/19/2017 1300 Ordering Location: [facility] ENDOSCOPY SERVICESReceived: 07/19/2017 1400 Pathologist: Juani Santiago MD Specimen:Lung, Right Lower Lobe, Routine cyto in CRR DIAGNOSIS RIGHT LOWER LOBE LUNG FNA BY [facility] CLINICIAN (CYTOSPINS AND CELL [facility] BLOCK OF ASPIRATE): - SQUAMOUS CELL CARCINOMA (SEE COMMENT) Signing Pathologist Direct Phone Line: [phone] COMMENT Please see cases [id number] and [facility] [id number] [facility] CPT Code(s) 45547, [address] [facility] CLINICAL DATA Right lower lobe lung mass [facility] with mediastinal adenopathy [facility] SPECIMEN SOURCE RIGHT LOWER LOBE LUNG FNA [facility] GROSS DESCRIPTION 25 mls in cytorich red; 4 [facility] cytospins, cell block [facility] Collected: [id number] Received: [id number] MICROSCOPIC DESCRIPTION The cytospins and the [facility] cellblock show squamous cell [facility] carcinoma, moderately differentiated with keratinization and associated with necrosis. Technical component was [facility] performed at Center, Department of [facility] Pathology, [address] [place] [address], Professional component [facility] was performed at Center, Department of [facility] Pathology, [address] [place] [address], Specimen EBUS Fine Needle Aspirate - Lung, Right Lower Lobe Performing Organization Address [facility] Phone Number [address] [phone] [facility] * Flow Cytometry Requisition (07/19/2017 12:53 PM CDT) Flow Cytometry See Separate Report [facility] Case # [id number] [facility] Specimen EBUS Fine Needle Aspirate - Lymph Node, Subcarinal, Station 7 Performing Organization Address [facility] Phone Number [address] [address] [facility] * Flow Cytometry (07/19/2017 12:53 PM CDT) Case Report Flow Cytometry [facility] Report [facility] Case: [id number] Authorizing Provider:Gilbert Burris MDCollecte d: 07/19/2017 1253 Ordering Location: [facility] ENDOSCOPY SERVICESReceived: 07/20/2017 1028 Pathologist: Josue Elliott MD Specimen:Other Flow Interpretation SUBCARINAL LYMPH NODE STATION [place] [address], FLOW CYTOMETRY: [facility] NO MONOCLONAL B CELL POPULATION. NO ABERRANT T CELL POPULATION. LYMPHOID EVENTS ARE SCARCE AND STUDY IS LIMITED. CORRELATION WITH MORPHOLOGIC FINDINGS REQUIRED. CPT Code(s) 55148 [facility] CLINICAL HISTORY Lymphadenopathy [facility] SPECIMEN SOURCE SUBCARINAL LYMPH NODE STATION [address] CELLULAR BIOMARKER CD8, surface-kappa, CD56, [facility] ANALYSIS surface-lambda, CD5, CD19, [facility] CD10, CD3, CD20, CD4, CD45 IMMUNOPHENOTYPIC FINDINGS Specimen Viability: 76.4% [facility] Blasts: A significant blast [facility] population is not identified. Lymphocytes: Bright CD45+ lymphocytes comprise 8.1% of total cells. T cells show a CD4:CD8 ratio of 0.7. B cells are polytypic with a kappa:lambda ratio of 1.3. Myeloid/monocytic populations: As identified by CD45 and light scatter characteristics, granulocytes comprise the majority of cells analyzed, and monocytes comprise 1.6% of total cells. The remaining events analyzed represent nonviable cells, non-hematolymphoid cells, and/or debris. DISCLAIMER These tests were developed and [facility] their performance [facility] characteristics determined by [facility]. They have not been cleared or approved by the U.S. Food and Drug Administration. The FDA has determined that such clearance or approval is not necessary. It should not be regarded as investigational or for research. This laboratory is certified under the Clinical Laboratory Improvement Amendments of 1988 ("CLIA") as qualified to perform high-complexity clinical testing. Specimen Other Performing Organization Address City/State/Zipcode Phone Number [facility] [address] [place] [address] [facility] * CBC (Hemogram only) (07/19/2017 11:48 AM CDT) WBC 12.8 (H) 3.5 - 10.5 K/L [facility] RBC 3.50 (L) 4.63 - 6.08 M/L [facility] Hemoglobin 7.9 (L) 13.7 - 17.5 GM/DL [facility] Hematocrit 26.2 (L) 40.1 - 51.0 % [facility] MCV 74.9 (L) 79.0 - 92.2 fL [facility] MCH 22.6 (L) 25.7 - 32.2 pg [facility] MCHC 30.2 (L) 32.3 - 36.5 GM/DL [facility] RDW 19.1 (H) 11.6 - 14.4 % [facility] Platelets 299 150 - 450 K/CU MM [facility] MPV 8.9 (L) 9.4 - 12.4 fL [facility] nRBC 0 0 - 0 /100 WBC [facility] Specimen Blood Performing Organization Address City/State/Zipcode Phone Number [facility] [address] [place] [address] [facility] after 05/02/2017 Insurance Payer Benefit Subscriber ID Type Phone Address Plan / Group [facility] x[facility]xx MEDICARE ADV Advance Directives For more information, please contact: [address] [address] Date Inactivated Comments Code Status Date Activated 07/25/2017 4:22 PM Full Code 07/19/2017 4:06 PM This code status was determined by: Patient
--- OUTSIDE RECORDS SUMMARY | 2018-05-03 21:07 | XMS REPORT | Continuity of Care Document ---
Author Author [facility] Interface Address Unknown Phone Unavailable Problems Problem Status Onset Date Classification Date Reported Comments Source Pneumonia, unspecified organism 06/24/2017 09/23/2017 [facility] FEVER Active 06/15/2017 [facility] PNEUMONIA Active 06/15/2017 [facility] CAP 05/01/2017 08/07/2017 [facility] FEVER, CONGESTION Active 05/01/2017 [facility] Discharge Diagnosis: Arthralgia 12/07/2016 12/10/2016 [facility] ARM SWELLING/ALLERGIC REACTION Active 12/07/2016 [facility] Discharge Diagnosis: PNA 12/03/2016 12/06/2016 [facility] FEVER, LOWER BACK PAIN Active 12/03/2016 [facility] Esophageal reflux Active Problem 11/21/[facility] Gout Resolved Problem 09/23/2017 [facility] Chronic obstructive pulmonary disease with acute lower respiratory infection 09/23/2017 [facility] Gout, unspecified 09/23/2017 [facility] Other diseases of bronchus, not elsewhere classified 09/23/2017 [facility] Iron deficiency anemia, unspecified 09/23/2017 [facility] Allergy status to penicillin 08/07/2017 [facility] PNEUMONIA, UNSPECIFIED ORGANISM Active [facility] Medications Medication Details Route Status Patient Instructions Ordering Provider Order Date Source Mobic 15 mg, 2 tab, Route: PO, Drug form: TAB, Daily, Dosing Weight 90.227, kg, Start date: 06/17/17 9:00:00 CDT, Duration: 30 day, Stop date: 07/16/17 9:00:00 CDTNotes: (Same as: Mobic) Inactive 06/17/2017 [facility] Amoxicillin 875 MG / Clavulanate 125 MG Oral Tablet [Augmentin 875-mg] 875 mg=1 tab, PO, BID, X 10 day, # 20 tab, 0 Refill(s) No Longer Active 06/17/2017 [facility] morphine Sulfate 6 mg, 3 mL, Route: PO, Drug form: SOLN, Q4H, PRN Pain Score 7-10, Start date: 06/16/17 13:04:00 CDT, Duration: 30 day, Stop date: 07/16/17 13:03:00 CDTNotes: (Same as:MORPhine Sulfate) No Longer Active 06/16/2017 [facility] Allopurinol 300 mg, 1 tab, Route: PO, Drug form: TAB, Daily, Dosing Weight 84.091, kg, Start date: 06/16/17 9:00:00 CDT, Duration: 30 day, Stop date: 07/15/17 9:00:00 CDTNotes: (Same as: Zyloprim) No Longer Active 06/16/2017 [facility] Vancomycin 1,000 mg, Route: IVPB, [id number], Dosing Weight 90.227, kg, Priority: NOW, Start date: 06/16/17 8:35:00 CDT, Duration: 10 day, Stop date: 06/25/17 20:35:00 CDT, ABX Indication: PneumoniaNotes: TIME CRITICAL MEDICATION (Same As: Vancocin) Infusion rate 2001 mg: infuse over 2.5 hours For adult patients only: Round to nearest 250 mg per Medical Staff approval MEDICATION WASTE Product Size: 1000 mg Product Wasted: ___ mg No Longer Active 06/16/2017 [facility] Zosyn 3.375 gm, Route: IVPB, Q8H, Dosing Weight 90.227, kg, CrCl >=20 ml/min infuse over 4 hours, Priority: NOW, Start date: 06/16/17 8:29:00 CDT, Stop date: 06/26/17 4:30:00 CDT, ABX Indication: PneumoniaNotes: (Same as: Zosyn) Dosing based on Piperacillin component MEDICATION WASTE Product Size: 3375 mg Product Wasted: ___ mg No Longer Active 06/16/2017 [facility] Ambien 5 mg, 1 tab, Route: PO, Drug form: TAB, Bedtime, Dosing Weight 90.227, kg, PRN Insomnia, Start date: 06/16/17 0:47:00 CDT, Duration: 30 day, Stop date: 07/16/17 0:46:00 CDTNotes: (Same As: Ambien) No Longer Active 06/16/2017 [facility] Albuterol 0.833 MG/ML / Ipratropium [place] 0.167 MG/ML Inhalant Solution [DuoNeb] 3 ml, Route: NEB, Drug Form: SOLN, Dosing Weight 84.091, kg, RQID, Start date: 06/15/17 19:00:00 CDT, Duration: 30 day, Stop date: 07/15/17 15:00:00 CDTNotes: (Same as: Duoneb) No Longer Active 06/16/2017 [facility] Levaquin 750 mg, 150 mL, Route: IVPB, Drug form: SOLN, [id number], Dosing Weight 84.091, kg, Start date: 06/15/17 18:00:00 CDT, Duration: 7 day, Stop date: 06/21/17 18:00:00 CDT, ABX Indication: PneumoniaNotes: (Same as:Levaquin) No Longer Active 06/15/2017 [facility] allopurinol 300 mg oral tablet 300 mg=1 tab, PO, Daily Active 06/15/2017 [facility] Enoxaparin 40 mg, 0.4 mL, Route: SUB-Q, Drug form: INJ, [id number], Dosing Weight 91.136, kg, Start date: 06/15/17 16:00:00 CDT, Duration: 30 day, Stop date: 07/14/17 16:00:00 CDTNotes: (Same as: Lovenox) No Longer Active 06/15/2017 [facility] Ondansetron 4 mg, 2 mL, Route: IVP, Drug form: INJ, Q6H, Dosing Weight 91.136, kg, PRN Nausea & Vomiting, Start date: 06/15/17 15:54:00 CDT, Duration: 30 day, Stop date: 07/15/17 15:53:00 CDTNotes: (Same as: Zofran) MEDICATION WASTE Product Size: 4 mg Product Wasted: ___ mg No Longer Active 06/15/2017 [facility] Morphine 2 mg, 0.5 mL, Route: IVP, Drug form: SOLN, Q4H, Dosing Weight 91.136, kg, PRN Pain Score 7-10, Start date: 06/15/17 15:54:00 CDT, Duration: 30 day, Stop date: 07/15/17 15:53:00 CDTNotes: (Same as:MORPhine Sulfate) No Longer Active 06/15/2017 [facility] Acetaminophen 650 mg, 2 tab, Route: PO, Drug form: TAB, Q4H, Dosing Weight 91.136, kg, PRN Pain 1-3/Temp > 100.4 F, Start date: 06/15/17 15:54:00 CDT, Duration: 30 day, Stop date: 07/15/17 15:53:00 CDTNotes: Do not exceed 4 gm/day. (Same as: Tylenol) No Longer Active 06/15/2017 [facility] Acetaminophen 325 MG / Hydrocodone Bitartrate 5 MG Oral Tablet 1 tab, Route: PO, Drug Form: TAB, Dosing Weight 91.136, kg, Q4H, PRN Pain Score 4-6, Start date: 06/15/17 15:54:00 CDT, Duration: 30 day, Stop date: 07/15/17 15:53:00 CDTNotes: (Same as: [place] 325/5) Do not exceed 4gm/day of acetaminophen. No Longer Active 06/15/2017 [facility] cefepime 1 gm, Route: IVPB, Drug form: INJ, ONCE, Dosing Weight 91.136, kg, Priority: STAT, Start date: 06/15/17 15:33:00 CDT, Stop date: 06/15/17 15:33:00 CDT, ABX Indication: PneumoniaNotes: (Same As: Maxipime) MEDICATION WASTE Product Size: 1000 mg Product Wasted: ___ mg Inactive 06/15/2017 [facility] Vancomycin 2,000 mg, Route: IVPB, ONCE, Dosing Weight 91.136, kg, Priority: STAT, Start date: 06/15/17 15:33:00 CDT, Stop date: 06/15/17 15:33:00 CDT, ABX Indication: PneumoniaNotes: TIME CRITICAL MEDICATION (Same As: Vancocin) Infusion rate 2001 mg: infuse over 2.5 hours For adult patients only: Round to nearest 250 mg per Medical Staff approval MEDICATION WASTE Product Size: 1000 mg Product Wasted: ___ mg Inactive 06/15/2017 [facility] benzonatate 100 MG Oral Capsule [Tessalon Perles] 100 mg=1 cap, PO, TID, X 7 day, # 21 cap, 0 Refill(s) No Longer Active 05/02/2017 [facility] Levofloxacin 750 MG Oral Tablet [Levaquin] 750 mg=1 tab, PO, Q24H, X 7 day, # 7 tab, 0 Refill(s) No Longer Active 05/02/2017 [facility] Levaquin 750 mg, 150 mL, Route: IVPB, Drug form: SOLN, ONCE, Dosing Weight 85, kg, Start date: 05/01/17 17:05:00 PLASTERER SPRAY GUN, Stop date: 05/01/17 17:05:00 PLASTERER SPRAY GUN, ABX Indication: PneumoniaNotes: (Same as:Levaquin) Inactive 05/01/2017 [facility] Sodium Chloride 0.9% (Bolus) IV 2,000 mL, 2000 ml/hr, Infuse Over: 1 hr, Route: IV, 2,000, Drug form: INJ, ONCE, Dosing Weight 85 kg, Start date: 05/01/17 16:25:00 PLASTERER SPRAY GUN, Stop date: 05/01/17 16:25:00 PLASTERER SPRAY GUN Inactive 05/01/2017 [facility] Sodium Chloride 0.9% (Bolus) IV 1,000 mL, 1000 ml/hr, Infuse Over: 1 hr, Route: IV, 1,000, Drug form: INJ, ONCE, Priority: STAT, Dosing Weight 85 kg, Start date: 05/01/17 16:22:00 PLASTERER SPRAY GUN, Stop date: 05/01/17 16:22:00 PLASTERER SPRAY GUN Inactive 05/01/2017 [facility] allopurinol 300 mg oral tablet 300 mg=1 tab, PO, Daily, # 30 tab, 0 Refill(s) Active 12/07/2016 [facility] Colchicine 0.6 MG Oral Tablet 0.6 mg=1 tab, PO, Daily, Take 2 tabs at the first sign of a gout flare followed by 0.6 mg one hour later, # 8 tab, 0 Refill(s) Active 12/07/2016 [facility] Azithromycin 5 Day Dose Pack 250 mg oral tablet See Instructions, Take 2 tablets by mouth the first day then 1 tablet by mouth days 2-5., X 5 day, # 6 tab, 0 Refill(s) Active 12/07/2016 [facility] Acetaminophen 325 MG / Hydrocodone Bitartrate 7.5 MG Oral Tablet [[place] 7.5/325] 1 tab, Route: PO, Drug Form: TAB, Dosing Weight 87.273, kg, ONCE, STAT, Start date: 12/07/16 14:35:00 CDT, Stop date: 12/07/16 14:35:00 CDTNotes: Same as [place] 325-7.5mg Do not exceed 4gm/day of acetaminophen. Inactive 12/07/2016 [facility] Levofloxacin 750 MG Oral Tablet [Levaquin] 750 mg=1 tab, PO, Q24H, X 7 day, # 7 tab, 0 Refill(s) Active 12/04/2016 [facility] Motrin 800 mg, 1 tab, Route: PO, Drug form: TAB, ONCE, Dosing Weight 83.182, kg, Priority: STAT, Start date: 12/03/16 17:00:00 CDT, Stop date: 12/03/16 17:00:00 CDTNotes: (Same as: Motrin) "Do Not Crush" Take with food. Inactive 12/03/2016 [facility] Zithromax 500 mg, Route: IVPB, Drug form: PDR/INJ, ONCE, Dosing Weight 83.182, kg, Priority: STAT, Start date: 12/03/16 16:59:00 CDT, Duration: 1 doses or times, Stop date: 12/03/16 16:59:00 CDT, ABX Indication: PneumoniaNotes: (Same As: Zithromax IV) Inactive 12/03/2016 [facility] Ceftriaxone 1 gm, Route: IVPB, Drug form: PDR/INJ, ONCE, Dosing Weight 83.182, kg, Priority: STAT, Start date: 12/03/16 16:59:00 CDT, Duration: 1 doses or times, Stop date: 12/03/16 16:59:00 CDT, ABX Indication: Pn eumoniaNotes: (Same As: Rocephin). Use with 100 mL NS and infuse over 30 min MEDICATION WASTE Product Size: 1000 mg Product Wasted: ___ mg Inactive 12/03/2016 [facility] Sodium Chloride 0.9% (Bolus) IV 1,000 mL, 1,000 ml/hr, Infuse Over: 1 hr, Route: IV, 1,000, Drug form: INJ, ONCE, Priority: STAT, Dosing Weight 83.182 kg, Start date: 12/03/16 16:30:00 CDT, Duration: 1 doses or times, Stop date: 12/03/16 16:30:00 CDT Inactive 12/03/2016 [facility] Allergies, Adverse Reactions, Alerts Substance Category Reaction Severity Reaction type Status Date Reported Comments Source Immunizations Immunization Date Given Site Status Last Updated Comments Source Results Order Name Results Value Reference Range Date Interpretation Comments Source URINE AND STOOL Occult Bld Stl Negative (06/17/17 4:37 AM) Negative 06/17/2017 [facility] HEMATOLOGY MCV 71.2 fL 80.0 - 94.0 06/17/2017 [facility] HEMATOLOGY MCHC 31.5 g/dL 32.0 - 36.0 06/17/2017 [facility] HEMATOLOGY RDW 17.4 % 11.5 - 14.5 06/17/2017 [facility] HEMATOLOGY Platelet 626 K/CMM 133 - 450 06/17/2017 [facility] HEMATOLOGY MCH 22.5 pg 27.0 - 31.0 06/17/2017 [facility] HEMATOLOGY MPV 6.0 fL 7.4 - 10.4 06/17/2017 [facility] HEMATOLOGY Hct 27.1 % 42.0 - 54.0 06/17/2017 [facility] HEMATOLOGY RBC 3.80 M/CMM 4.70 - 6.10 06/17/2017 [facility] HEMATOLOGY WBC 12.5 K/CMM 3.7 - 10.4 06/17/2017 [facility] HEMATOLOGY Hgb 8.5 g/dL 14.0 - 18.0 06/17/2017 [facility] HEMATOLOGY Microcyte 1+ *ABN* (06/17/17 4:13 AM) None Seen 06/17/2017 [facility] HEMATOLOGY Basophils # 0.1 K/CMM 0.0 - 0.2 06/17/2017 [facility] HEMATOLOGY Monocytes # 0.8 K/CMM 0.0 - 0.8 06/17/2017 [facility] HEMATOLOGY Eosinophils # 0.4 K/CMM 0.0 - 0.5 06/17/2017 [facility] HEMATOLOGY Segs 65.4 % 45.0 - 75.0 06/17/2017 [facility] HEMATOLOGY Lymphocytes # 3.1 K/CMM 1.0 - 5.5 06/17/2017 [facility] HEMATOLOGY Monocytes 6.1 % 2.0 - 12.0 06/17/2017 [facility] HEMATOLOGY Eosinophils 3.4 % 0.0 - 4.0 06/17/2017 [facility] HEMATOLOGY Segs-Bands # 8.2 K/CMM 1.5 - 8.1 06/17/2017 [facility] HEMATOLOGY Lymphocytes 24.5 % 20.0 - 40.0 06/17/2017 [facility] HEMATOLOGY Basophils 0.6 % 0.0 - 1.0 06/17/2017 [facility] BACTERIAL - SEROLOGY Source Strep Urine *NA* (06/16/17 6:30 PM) 06/16/2017 [facility] BACTERIAL - SEROLOGY Strep pneumoniae Ag Positive *ABN* (06/16/17 6:30 PM) Negative 06/16/2017 [facility] MOLECULAR DIAGNOSTIC Source Parainfluenza Virus PCR Flocked [employer] Swab (06/16/17 11:00 AM) 06/16/[address] [facility] DIAGNOSTIC Parainfluenza 1 PCR Negative (06/16/17 11:00 AM) Negative 06/16/2017 [facility] MOLECULAR DIAGNOSTIC Parainfluenza 2 PCR Negative (06/16/17 11:00 AM) Negative 06/16/[address] [facility] DIAGNOSTIC Parainfluenza 3 PCR Negative (06/16/17 11:00 AM) Negative 06/16/[address] [facility] DIAGNOSTIC Adenovirus PCR Negative (06/16/17 11:00 AM) Negative 06/16/[address] [facility] DIAGNOSTIC Source Adenovirus PCR Flocked [employer] Swab (06/16/17 11:00 AM) 06/16/2017 [facility] MOLECULAR DIAGNOSTIC RSV PCR Negative (06/16/17 11:00 AM) Negative 06/16/2017 [facility] MOLECULAR DIAGNOSTIC Influenza A PCR Negative (06/16/17 11:00 AM) Negative 06/16/[address] [facility] DIAGNOSTIC Influenza B PCR Negative (06/16/17 11:00 AM) Negative 06/16/2017 [facility] MOLECULAR DIAGNOSTIC Source Respiratory Panel PCR Fl[employer]ed [employer] Swab (06/16/17 11:00 AM) 06/16/2017 [facility] Chest wo contrast CT Chest wo contrast CT Patient Name: ESTHER GARCIA : 1950; Age: 66 years y/o Male MR: [id number] Study: Chest wo contrast CT 06/16/2017 8:37 AM CDT Clinical Indication: - RLL pneumonia; Comparison: None TECHNIQUE: Sequential trans-axial images were obtained thru the chest and upper abdomen without the administration of intravenous contrast. Coronal and sagittal reconstructions were obtained. DLP: 1005.64 mGy-cm. FINDINGS: AIRWAY: The proximal right lower lobe bronchus is completely occluded. The tracheobronchial tree is otherwise unremarkable. LUNG PARENCHYMA AND PLEURA: There is near complete dense consolidation of the right lower lobe. There is a small amount of aeration to the medial superior aspect of the right lower lobe and to the lateral aspect of the right lower lobe. An obstructing tumor centrally causing postobstructive pneumonitis cannot be excluded. Bronchoscopy would be helpful for evaluation. No other parenchymal lung abnormality identified bilaterally. No pleural effusion bilaterally. No pneumothorax bilaterally. MEDIASTINUM: Small nonspecific anterior mediastinal, pretracheal, precarinal and aortopulmonic window nodes noted. Mildly prominent nonspecific subcarinal nodes. Because the consolidation in the right lower lobe extends to the right hilar region cannot exclude right hilar adenopathy. Evaluation of the hilar regions is limited without intravenous contrast. No left hilar or axillary adenopathy. No pericardial effusion. There is mild dilatation of the ascending thoracic aorta measuring 4.4 cm in greatest anterior to posterior dimension. Calcification along the great vessels, thoracic aortic calcification and coronary artery calcification. OSSEOUS STRUCTURES: Degenerative changes are seen about the visualized spine. VISUALIZED NON-CONTRAST UPPER ABDOMEN: In the lateral right mid kidney, there is a 1.7 cm low-density lesion not well evaluated by this noncontrast study. Recommend renal ultrasound to ensure simple cyst. There is a large hiatal hernia. Upper abdominal aortic calcification. Views of the upper abdomen are otherwise unremarkable. IMPRESSION: 1. Complete occlusion of the proximal right lower lobe bronchus with near complete dense consolidation of the right lower lobe. An obstructing tumor centrally causing postobstructive pneumonitis cannot be excluded. Bronchoscopy would be helpful for further evaluation. 2. Small nonspecific mediastinal nodes. Mildly prominent nonspecific subcarinal nodes. 3. Question right hilar adenopathy. See above discussion. 4. Mild dilatation of the ascending thoracic aorta. 5. Vascular calcification in the chest and upper abdomen as above. 6. Indeterminate low-density right renal lesion. Recommend renal ultrasound to ensure simple cyst. 7. Large hiatal hernia. SL: [id number] 06/16/2017 - - Read by: Iain Garduno MD Dictated Date/time: 06/16/17 11:13 Electronically Signed by: Iain Garduno MD 06/16/17 11:[address] [facility] ANEMIA STUDY Vitamin B12 Lvl 328 pg/mL 254 - 1320 06/16/2017 [facility] ANEMIA STUDY Folate Lvl 9.9 ng/mL >=3.0 ng/mL 06/16/2017 [facility] ANEMIA STUDY % Satur Fe 9 % 12 - 57 06/16/2017 [facility] ANEMIA STUDY Iron 19 ug/dl 45 - 160 06/16/2017 [facility] ANEMIA STUDY UIBC 202 ug/dl 110 - 370 06/16/2017 [facility] ANEMIA STUDY TIBC 221 ug/dl 228 - 428 06/16/2017 [facility] CHEM PANEL eGFR 90 mL/min/1.73m2 06/16/2017 Result Comment: The eGFR is calculated using the CKD-EPI formula. In most young, healthy individuals the eGFR will be >90 mL/min/1.73m2. The eGFR declines with age. An eGFR of 60-89 may be normal in some populations, particularly the elderly, for whom the CKD-EPI formula has not been extensively validated. Use of the eGFR is not recommended in the following populations: Individuals with unstable creatinine concentrations, including patients and those with serious co-morbid conditions. Patients with extremes in muscle mass or diet. The data above are obtained from the National Kidney Disease Education Program (NKDEP) which additionally recommends that when the eGFR is used in patients with extremes of body mass index for purposes of drug dosing, the eGFR should be multiplied by the estimated BMI. [facility] CHEM PANEL Chloride Lvl 103 meq/L 95 - 109 06/16/2017 [facility] CHEM PANEL Creatinine Lvl 0.87 mg/dL 0.50 - 1.40 06/16/2017 [facility] CHEM PANEL Sodium Lvl 139 meq/L 135 - 145 06/16/2017 [facility] CHEM PANEL Potassium Lvl 4.3 meq/L 3.5 - 5.1 06/16/2017 [facility] CHEM PANEL Glucose Lvl 100 mg/dL 70 - 99 06/16/2017 [facility] CHEM PANEL BUN 13 mg/dL 7 - 22 06/16/2017 [facility] CHEM PANEL Albumin Lvl 2.1 g/dL 3.5 - 5.0 06/16/2017 [facility] CHEM PANEL Globulin 4.6 g/dL 2.7 - 4.2 06/16/2017 [facility] CHEM PANEL A/G Ratio 0.5 0.7 - 1.6 06/16/2017 [facility] CHEM PANEL Total Protein 6.7 g/dL 6.4 - 8.4 06/16/2017 [facility] CHEM PANEL CO2 28 meq/L 24 - 32 06/16/2017 [facility] CHEM PANEL Calcium Lvl 8.7 mg/dL 8.5 - 10.5 06/16/2017 [facility] CHEM PANEL AGAP 12.3 meq/L 10.0 - 20.0 06/16/2017 [facility] CHEM PANEL B/C Ratio 15 6 - 25 06/16/2017 [facility] CHEM PANEL ALT 12 unit/L 0 - 65 06/16/2017 [facility] CHEM PANEL AST 12 unit/L 0 - 37 06/16/2017 [facility] CHEM PANEL Alk Phos 60 unit/L 39 - 136 06/16/2017 [facility] CHEM PANEL Bili Total 0.5 mg/dL 0.2 - 1.3 06/16/2017 [facility] CHEM PANEL Procalcitonin Lvl <0.05 ng/mL 0.00 - 0.10 06/16/2017 [facility] HEMATOLOGY MPV 6.5 fL 7.4 - 10.4 06/16/2017 [facility] HEMATOLOGY Platelet 582 K/CMM 133 - 450 06/16/2017 [facility] HEMATOLOGY MCHC 31.5 g/dL 32.0 - 36.0 06/16/2017 [facility] HEMATOLOGY RDW 17.7 % 11.5 - 14.5 06/16/2017 [facility] HEMATOLOGY WBC 10.3 K/CMM 3.7 - 10.4 06/16/2017 [facility] HEMATOLOGY RBC 3.56 M/CMM 4.70 - 6.10 06/16/2017 [facility] HEMATOLOGY MCV 71.7 fL 80.0 - 94.0 06/16/2017 [facility] HEMATOLOGY MCH 22.6 pg 27.0 - 31.0 06/16/2017 [facility] HEMATOLOGY Hgb 8.0 g/dL 14.0 - 18.0 06/16/2017 [facility] HEMATOLOGY Hct 25.5 % 42.0 - 54.0 06/16/2017 [facility] HEMATOLOGY Basophils # 0.1 K/CMM 0.0 - 0.2 06/16/2017 [facility] HEMATOLOGY Microcyte 1+ *ABN* (06/16/17 3:26 AM) None Seen 06/16/2017 [facility] HEMATOLOGY Eosinophils # 0.4 K/CMM 0.0 - 0.5 06/16/2017 [facility] HEMATOLOGY Lymphocytes # 2.4 K/CMM 1.0 - 5.5 06/16/2017 [facility] HEMATOLOGY Monocytes # 0.6 K/CMM 0.0 - 0.8 06/16/2017 [facility] HEMATOLOGY Lymphocytes 23.4 % 20.0 - 40.0 06/16/2017 [facility] HEMATOLOGY Monocytes 6.0 % 2.0 - 12.0 06/16/2017 [facility] HEMATOLOGY Segs 66.3 % 45.0 - 75.0 06/16/2017 [facility] HEMATOLOGY Basophils 0.8 % 0.0 - 1.0 06/16/2017 [facility] HEMATOLOGY Segs-Bands # 6.9 K/CMM 1.5 - 8.1 06/16/2017 [facility] HEMATOLOGY Eosinophils 3.5 % 0.0 - 4.0 06/16/2017 [facility] LIPIDS VLDL 9 06/16/2017 [facility] LIPIDS HDL 34 mg/dL >=61 mg/dL 06/16/2017 [facility] LIPIDS Chol 98 mg/dL <=199 mg/dL 06/16/2017 [facility] LIPIDS Trig 46 mg/dL <=149 mg/dL 06/16/2017 [facility] LIPIDS LDL (Calculated) 55 mg/dL <=99 mg/dL 06/16/2017 [facility] LIPIDS CHD Risk 2.88 4.00 - 7.30 06/16/2017 [facility] CARDIAC ENZYMES Troponin-I null 0.00 - 0.40 06/15/2017 [facility] CARDIAC ENZYMES CK MB null 0.5 - 3.6 06/15/2017 [facility] CARDIAC ENZYMES Total CK 41 unit/L 12 - 191 06/15/2017 [facility] CARDIAC ENZYMES CK MB Index null 0.0 - 2.5 06/15/2017 [facility] CHEM PANEL eGFR 90 mL/min/1.73m2 06/15/2017 Result Comment: The eGFR is calculated using the CKD-EPI formula. In most young, healthy individuals the eGFR will be >90 mL/min/1.73m2. The eGFR declines with age. An eGFR of 60-89 may be normal in some populations, particularly the elderly, for whom the CKD-EPI formula has not been extensively validated. Use of the eGFR is not recommended in the following populations: Individuals with unstable creatinine concentrations, including patients and those with serious co-morbid conditions. Patients with extremes in muscle mass or diet. The data above are obtained from the National Kidney Disease Education Program (NKDEP) which additionally recommends that when the eGFR is used in patients with extremes of body mass index for purposes of drug dosing, the eGFR should be multiplied by the estimated BMI. [facility] CHEM PANEL B/C Ratio 15 6 - 25 06/15/2017 [facility] CHEM PANEL A/G Ratio 0.4 0.7 - 1.6 06/15/2017 [facility] CHEM PANEL Globulin 5.5 g/dL 2.7 - 4.2 06/15/2017 [facility] CHEM PANEL Albumin Lvl 2.4 g/dL 3.5 - 5.0 06/15/2017 [facility] CHEM PANEL Total Protein 7.9 g/dL 6.4 - 8.4 06/15/2017 [facility] CHEM PANEL Bili Total 0.3 mg/dL 0.2 - 1.3 06/15/2017 [facility] CHEM PANEL AGAP 10.5 meq/L 10.0 - 20.0 06/15/2017 [facility] CHEM PANEL Alk Phos 65 unit/L 39 - 136 06/15/2017 [facility] CHEM PANEL ALT 13 unit/L 0 - 65 06/15/2017 [facility] CHEM PANEL AST 12 unit/L 0 - 37 06/15/2017 [facility] CHEM PANEL Sodium Lvl 137 meq/L 135 - 145 06/15/2017 [facility] CHEM PANEL CO2 31 meq/L 24 - 32 06/15/2017 [facility] CHEM PANEL Calcium Lvl 9.0 mg/dL 8.5 - 10.5 06/15/2017 [facility] CHEM PANEL Chloride Lvl 100 meq/L 95 - 109 06/15/2017 [facility] CHEM PANEL Potassium Lvl 4.5 meq/L 3.5 - 5.1 06/15/2017 [facility] CHEM PANEL BUN 13 mg/dL 7 - 22 06/15/2017 [facility] CHEM PANEL Creatinine Lvl 0.87 mg/dL 0.50 - 1.40 06/15/2017 [facility] CHEM PANEL Glucose Lvl 82 mg/dL 70 - 99 06/15/2017 [facility] HEMATOLOGY MPV 6.3 fL 7.4 - 10.4 06/15/2017 [facility] [facility] HEMATOLOGY Hgb 9.0 g/dL 14.0 - 18.0 06/15/2017 [facility] HEMATOLOGY RBC 4.03 M/CMM 4.70 - 6.10 06/15/2017 [facility] HEMATOLOGY Hct 28.7 % 42.0 - 54.0 06/15/2017 [facility] HEMATOLOGY MCV 71.1 fL 80.0 - 94.0 06/15/2017 [facility] HEMATOLOGY MCH 22.4 pg 27.0 - 31.0 06/15/2017 [facility] HEMATOLOGY RDW 17.8 % 11.5 - 14.5 06/15/2017 [facility] HEMATOLOGY MCHC 31.5 g/dL 32.0 - 36.0 06/15/2017 [facility] HEMATOLOGY Platelet 705 K/CMM 133 - 450 06/15/2017 [facility] HEMATOLOGY WBC 12.4 K/CMM 3.7 - 10.4 06/15/2017 [facility] HEMATOLOGY Eosinophils # 0.2 K/CMM 0.0 - 0.5 06/15/2017 [facility] HEMATOLOGY Microcyte 1+ *ABN* (06/15/17 1:55 PM) None Seen 06/15/2017 [facility] HEMATOLOGY Basophils # 0.1 K/CMM 0.0 - 0.2 06/15/2017 [facility] HEMATOLOGY Lymphocytes 20.6 % 20.0 - 40.0 06/15/2017 [facility] HEMATOLOGY Monocytes 6.0 % 2.0 - 12.0 06/15/2017 [facility] HEMATOLOGY Eosinophils 1.9 % 0.0 - 4.0 06/15/2017 [facility] HEMATOLOGY Basophils 0.4 % 0.0 - 1.0 06/15/2017 [facility] HEMATOLOGY Segs-Bands # 8.8 K/CMM 1.5 - 8.1 06/15/2017 [facility] HEMATOLOGY Lymphocytes # 2.6 K/CMM 1.0 - 5.5 06/15/2017 [facility] HEMATOLOGY Monocytes # 0.7 K/CMM 0.0 - 0.8 06/15/2017 [facility] HEMATOLOGY Segs 71.1 % 45.0 - 75.0 06/15/2017 [facility] Chest 1view DX Chest 1view DX Study: Chest 1view DX 06/15/2017 11:42 AM CDT Clinical Indication: - chest pain; Comparison: Chest x-ray 05/01/2017 FINDINGS: Cardiac silhouette stable. Hiatal hernia. Confluent airspace opacity of the right lung base with small right pleural effusion, increased from 05/01/2017. The left lung is clear. No pneumothorax. Aortic calcifications IMPRESSION: Interval worsening of right lower lobe pneumonia. SL: [id number] 06/15/2017 - - Read by: Marv Connell MD Dictated Date/time: 06/15/17 11:57 Electronically Signed by: Marv Connell MD 06/15/17 11:[address] [facility] CARDIAC ENZYMES Troponin-I null 0.00 - 0.40 05/01/2017 [facility] CARDIAC ENZYMES CK MB 0.7 ng/mL 0.5 - 3.6 05/01/2017 [facility] CHEM PANEL Procalcitonin Lvl 0.11 ng/mL 0.00 - 0.10 05/01/2017 [facility] CHEM PANEL Lactic Acid Lvl 0.9 mMol/L 0.5 - 2.2 05/01/2017 [facility] CHEM PANEL eGFR 84 mL/min/1.73m2 05/01/2017 Result Comment: The eGFR is calculated using the CKD-EPI formula. In most young, healthy individuals the eGFR will be >90 mL/min/1.73m2. The eGFR declines with age. An eGFR of 60-89 may be normal in some populations, particularly the elderly, for whom the CKD-EPI formula has not been extensively validated. Use of the eGFR is not recommended in the following populations: Individuals with unstable creatinine concentrations, including patients and those with serious co-morbid conditions. Patients with extremes in muscle mass or diet. The data above are obtained from the National Kidney Disease Education Program (NKDEP) which additionally recommends that when the eGFR is used in patients with extremes of body mass index for purposes of drug dosing, the eGFR should be multiplied by the estimated BMI. [facility] CHEM PANEL CO2 26 meq/L 24 - 32 05/01/2017 [facility] CHEM PANEL Calcium Lvl 8.5 mg/dL 8.5 - 10.5 05/01/2017 [facility] CHEM PANEL Bili Total 0.3 mg/dL 0.2 - 1.3 05/01/2017 [facility] CHEM PANEL Chloride Lvl 100 meq/L 95 - 109 05/01/2017 [facility] CHEM PANEL ALT 17 unit/L 0 - 65 05/01/2017 [facility] CHEM PANEL AST 14 unit/L 0 - 37 05/01/2017 [facility] CHEM PANEL Alk Phos 71 unit/L 39 - 136 05/01/2017 [facility] CHEM PANEL Potassium Lvl 4.0 meq/L 3.5 - 5.1 05/01/2017 [facility] CHEM PANEL Sodium Lvl 133 meq/L 135 - 145 05/01/2017 [facility] CHEM PANEL Glucose Lvl 107 mg/dL 70 - 99 05/01/2017 [facility] CHEM PANEL BUN 15 mg/dL 7 - 22 05/01/2017 [facility] CHEM PANEL Creatinine Lvl 0.94 mg/dL 0.50 - 1.40 05/01/2017 [facility] CHEM PANEL Total Protein 7.5 g/dL 6.4 - 8.4 05/01/2017 [facility] CHEM PANEL Albumin Lvl 2.4 g/dL 3.5 - 5.0 05/01/2017 [facility] CHEM PANEL AGAP 11.0 meq/L 10.0 - 20.0 05/01/2017 [facility] CHEM PANEL B/C Ratio 16 6 - 25 05/01/2017 [facility] CHEM PANEL A/G Ratio 0.5 0.7 - 1.6 05/01/2017 [facility] CHEM PANEL Globulin 5.1 g/dL 2.7 - 4.2 05/01/2017 [facility] HEMATOLOGY Microcyte 1+ *ABN* (05/01/17 4:55 PM) None Seen 05/01/2017 [facility] HEMATOLOGY Basophils # 0.1 K/CMM 0.0 - 0.2 05/01/2017 [facility] HEMATOLOGY Monocytes # 0.9 K/CMM 0.0 - 0.8 05/01/2017 [facility] HEMATOLOGY Eosinophils # 0.3 K/CMM 0.0 - 0.5 05/01/2017 [facility] HEMATOLOGY Lymphocytes # 1.2 K/CMM 1.0 - 5.5 05/01/2017 [facility] HEMATOLOGY Segs-Bands # 9.0 K/CMM 1.5 - 8.1 05/01/2017 [facility] HEMATOLOGY Eosinophils 2.4 % 0.0 - 4.0 05/01/2017 [facility] HEMATOLOGY Monocytes 8.1 % 2.0 - 12.0 05/01/2017 [facility] HEMATOLOGY Lymphocytes 10.3 % 20.0 - 40.0 05/01/2017 [facility] HEMATOLOGY Basophils 0.5 % 0.0 - 1.0 05/01/2017 [facility] HEMATOLOGY Segs 78.7 % 45.0 - 75.0 05/01/2017 [facility] HEMATOLOGY MPV 6.8 fL 7.4 - 10.4 05/01/2017 [facility] HEMATOLOGY RDW 16.5 % 11.5 - 14.5 05/01/2017 [facility] HEMATOLOGY Platelet 544 K/CMM 133 - 450 05/01/2017 [facility] HEMATOLOGY MCHC 32.0 g/dL 32.0 - 36.0 05/01/2017 [facility] HEMATOLOGY MCH 23.7 pg 27.0 - 31.0 05/01/2017 [facility] HEMATOLOGY MCV 74.1 fL 80.0 - 94.0 05/01/2017 [facility] HEMATOLOGY Hct 27.0 % 42.0 - 54.0 05/01/2017 [facility] HEMATOLOGY Hgb 8.6 g/dL 14.0 - 18.0 05/01/2017 [facility] HEMATOLOGY RBC 3.64 M/CMM 4.70 - 6.10 05/01/2017 [facility] HEMATOLOGY WBC 11.4 K/CMM 3.7 - 10.4 05/01/2017 [facility] VIRAL - SEROLOGY Influ B Negative (05/01/17 4:55 PM) Negative 05/01/2017 [facility] VIRAL - SEROLOGY Influ A Negative (05/01/17 4:55 PM) Negative 05/01/2017 [facility] Chest 2 views DX Chest 2 views DX Patient Name: ESTHER GARCIA : 1950; Age: 66 years y/o Male MR: [id number] Study: Chest 2 views DX 05/01/2017 3:52 PM [employer] Ordering Physician: Shola Pedersen Comparison: 12/07/2016 Clinical Indication: Cough and fever - cough fever; Consolidative pulmonary parenchymal opacity is noted at the medial right lung base preserving the right heart border consistent with pneumonia at the right lower lobe. Retrocardiac hiatal hernia with air-fluid level is noted. Mild uncoiling of the thoracic aorta at the arch is noted accentuated by upper thoracic curvature convex to the right. Lungs are otherwise clear. No pleural fluid collection. IMPRESSION: 1. Right lower lobe pneumonia. 2. Retrocardiac hiatal hernia with air-fluid level is noted. : [id number] 05/01/2017 - - Read by: Yonathan Patel MD Dictated Date/time: 05/01/17 16:16 Electronically Signed by: Yonathan Patel MD 05/01/17 16:[address] [facility] Chest 2 views DX Chest 2 views DX PA and lateral chest: There is a right infrahilar opacity previously demonstrated on the radiograph of 12/03/2016 consistent with pneumonia, although a mass is not excluded at this time. Follow-up radiographs to resolution are recommended. The lungs and pleural spaces are otherwise clear. A large hiatal hernia in the left retrocardiac region is again seen. The cardiac silhouette and pulmonary vasculature are within normal limits. There is no other significant change. DLAWRENCE- 12/07/2016 - - Read by: Nitin Prado MD Dictated Date/time: 12/07/16 15:43 Electronically Signed by: Nitin Prado MD 12/07/16 15:[address] [facility] Knee 3 Views Bilateral DX Knee 3 Views Bilateral DX Bilateral knees 3 views: There is mild narrowing of the tibiofemoral and patellofemoral joint spaces with mild marginal spurring. Soft tissue calcifications anterior to the right infrapatellar ligament are noted. A small joint effusions are seen in the suprapatellar bursa. There is no fracture or dislocation. IMPRESSION: Degenerative changes and small joint effusions without other acute radiographic abnormalities of the knees. DLAWRENCE- 12/07/2016 - - Read by: Nitin Prado MD Dictated Date/time: 12/07/16 15:41 Electronically Signed by: Nitin Prado MD 12/07/16 15:[address] [facility] Elbow 3 views DX Elbow 3 views DX Left elbow 3 views: There is no fracture or dislocation. There are no other significant osseous, articular or soft tissue abnormalities. IMPRESSION: No acute radiographic abnormalities of the left elbow. FELICE [id number]-PC 12/07/2016 - - Read by: Nitin Prado MD Dictated Date/time: 12/07/16 15:40 Electronically Signed by: Nitin Prado MD 12/07/16 15:[address] [facility] URINE AND STOOL UA RBC 0-2 /HPF 0 - 2 12/03/2016 [facility] URINE AND STOOL UA Bacteria Occasional /HPF None Seen /HPF 12/03/2016 [facility] URINE AND STOOL UA Nitrite Negative (12/03/16 6:47 PM) Negative 12/03/2016 [facility] URINE AND STOOL UA Leuk Est Negative (12/03/16 6:47 PM) Negative 12/03/2016 [facility] URINE AND STOOL UA Sq Epi Occasional /LPF Few /LPF 12/03/2016 [facility] URINE AND STOOL UA Mucus Rare /LPF None Seen /LPF 12/03/2016 [facility] URINE AND STOOL UA WBC 0-2 /HPF None Seen /HPF 12/03/2016 [facility] URINE AND STOOL UA Protein 30 mg/dL Negative mg/dL 12/03/2016 [facility] URINE AND STOOL UA Glucose Negative (12/03/16 6:47 PM) Negative 12/03/2016 [facility] URINE AND STOOL UA Ketones Negative *NA* (12/03/16 6:47 PM) Negative 12/03/2016 [facility] URINE AND STOOL UA Bili Negative *NA* (12/03/16 6:47 PM) Negative 12/03/2016 [facility] URINE AND STOOL UA Turbidity Clear (12/03/16 6:47 PM) Clear 12/03/2016 [facility] URINE AND STOOL UA Spec Grav <=1.005
*NA*
(12/03/16 6:47 PM) <=1.030 12/03/2016 [facility] URINE AND STOOL UA pH 5.5 5.0 - 8.0 12/03/2016 [facility] URINE AND STOOL UA Blood Trace *ABN* (12/03/16 6:47 PM) Negative 12/03/2016 [facility] URINE AND STOOL UA Urobilinogen 1.0 EU/dL 0.1 - 1.0 12/03/2016 [facility] URINE AND STOOL UA Color Yellow *NA* (12/03/16 6:47 PM) Yellow 12/03/2016 [facility] CHEM PANEL eGFR 75 mL/min/1.73m2 12/03/2016 Result Comment: The eGFR is calculated using the CKD-EPI formula. In most young, healthy individuals the eGFR will be >90 mL/min/1.73m2. The eGFR declines with age. An eGFR of 60-89 may be normal in some populations, particularly the elderly, for whom the CKD-EPI formula has not been extensively validated. Use of the eGFR is not recommended in the following populations: Individuals with unstable creatinine concentrations, including patients and those with serious co-morbid conditions. Patients with extremes in muscle mass or diet. The data above are obtained from the National Kidney Disease Education Program (NKDEP) which additionally recommends that when the eGFR is used in patients with extremes of body mass index for purposes of drug dosing, the eGFR should be multiplied by the estimated BMI. [facility] CHEM PANEL Calcium Lvl 8.7 mg/dL 8.5 - 10.5 12/03/2016 [facility] CHEM PANEL CO2 27 meq/L 24 - 32 12/03/2016 [facility] CHEM PANEL Glucose Lvl 112 mg/dL 70 - 99 12/03/2016 [facility] CHEM PANEL BUN 11 mg/dL 7 - 22 12/03/2016 [facility] CHEM PANEL Sodium Lvl 135 meq/L 135 - 145 12/03/2016 [facility] CHEM PANEL Potassium Lvl 3.7 meq/L 3.5 - 5.1 12/03/2016 [facility] CHEM PANEL Chloride Lvl 100 meq/L 95 - 109 12/03/2016 [facility] CHEM PANEL Creatinine Lvl 1.03 mg/dL 0.50 - 1.40 12/03/2016 [facility] CHEM PANEL AGAP 11.7 meq/L 10.0 - 20.0 12/03/2016 [facility] HEMATOLOGY Platelet 242 K/CMM 133 - 450 12/03/2016 [facility] HEMATOLOGY MPV 7.4 fL 7.4 - 10.4 12/03/2016 [facility] HEMATOLOGY MCV 85.3 fL 80.0 - 94.0 12/03/2016 [facility] HEMATOLOGY RDW 14.1 % 11.5 - 14.5 12/03/2016 [facility] HEMATOLOGY MCH 27.9 pg 27.0 - 31.0 12/03/2016 [facility] HEMATOLOGY MCHC 32.7 g/dL 32.0 - 36.0 12/03/2016 [facility] HEMATOLOGY Hct 33.7 % 42.0 - 54.0 12/03/2016 [facility] HEMATOLOGY Hgb 11.0 g/dL 14.0 - 18.0 12/03/2016 [facility] HEMATOLOGY RBC 3.95 M/CMM 4.70 - 6.10 12/03/2016 [facility] HEMATOLOGY WBC 13.7 K/CMM 3.7 - 10.4 12/03/2016 [facility] HEMATOLOGY Lymphocytes 8.9 % 20.0 - 40.0 12/03/2016 [facility] HEMATOLOGY Monocytes 8.3 % 2.0 - 12.0 12/03/2016 [facility] HEMATOLOGY Basophils 0.3 % 0.0 - 1.0 12/03/2016 [facility] HEMATOLOGY Segs-Bands # 11.3 K/CMM 1.5 - 8.1 12/03/2016 [facility] HEMATOLOGY Segs 82.3 % 45.0 - 75.0 12/03/2016 [facility] HEMATOLOGY Eosinophils 0.2 % 0.0 - 4.0 12/03/2016 [facility] HEMATOLOGY Monocytes # 1.1 K/CMM 0.0 - 0.8 12/03/2016 [facility] HEMATOLOGY Lymphocytes # 1.2 K/CMM 1.0 - 5.5 12/03/2016 [facility] VIRAL - SEROLOGY Influ B Negative (12/03/16 5:06 PM) Negative 12/03/2016 [facility] VIRAL - SEROLOGY Influ A Negative (12/03/16 5:06 PM) Negative 12/03/2016 [facility] Chest 1view DX Chest 1view DX Chest 1view DX CLINICAL HISTORY:Cough and fever - cough and fever COMPARISON: none FINDINGS/IMPRESSION: Limited AP portable study. Support Lines/Devices: none Lungs: Mild patchy airspace disease is noted in the right lower lobe. Findings are consistent with the clinical diagnosis of pneumonia. Cardiomediastinum: Cardiomediastinal silhouette is stable. Large retrocardiac hiatal hernia. Bone and Soft Tissues: No acute bony abnormality is evident. SL: [id number] 12/03/2016 - - Read by: Abisai Ferrari MD Dictated Date/time: 12/03/16 16:39 Electronically Signed by: Abisai Ferrari MD 12/03/16 16:40 FINAL REPORT [facility] Vital Signs Vital Sign Value Date Comments Source Systolic (mm Hg) 113 06/17/2017 [facility] Diastolic (mm Hg) 72 06/17/2017 [facility] Respitory Rate 18 06/17/2017 [facility] Temperature Oral (F) 98.7 F 06/17/2017 [facility] Heart Rate 105 06/17/2017 [facility] Systolic (mm Hg) 105 06/17/2017 [facility] Diastolic (mm Hg) 68 06/17/2017 [facility] Respitory Rate 18 06/17/2017 [facility] Temperature Oral (F) 99 F 06/17/2017 [facility] Heart Rate 114 06/17/2017 [facility] Temperature Oral (F) 98.1 F 06/17/2017 [facility] Heart Rate 113 06/17/2017 [facility] Respitory Rate 18 06/17/2017 [facility] Systolic (mm Hg) 132 06/17/2017 [facility] Diastolic (mm Hg) 82 06/17/2017 [facility] Weight 90.227 06/16/2017 [facility] BMI Calculated 27.74 06/16/2017 [facility] Height 180.34 cm 06/16/2017 [facility] Height 170.18 cm 06/15/2017 [facility] Weight 84.091 06/15/2017 [facility] BMI Calculated 29.04 06/15/2017 [facility] Height 180.34 cm 06/15/2017 [facility] Weight 91.136 06/15/2017 [facility] BMI Calculated 28.02 06/15/2017 [facility] Heart Rate 120 05/02/2017 [facility] Respitory Rate 25 05/02/2017 [facility] Systolic (mm Hg) 115 05/02/2017 [facility] Diastolic (mm Hg) 76 05/02/2017 [facility] Systolic (mm Hg) 146 05/01/2017 [facility] Diastolic (mm Hg) 91 05/01/2017 [facility] Heart Rate 121 05/01/2017 [facility] Respitory Rate 23 05/01/2017 [facility] Heart Rate 123 05/01/2017 [facility] Respitory Rate 18 05/01/2017 [facility] Weight 85 05/01/2017 [facility] BMI Calculated 26.14 05/01/2017 [facility] Height 180.34 cm 05/01/2017 [facility] Systolic (mm Hg) 143 05/01/2017 [facility] Diastolic (mm Hg) 86 05/01/2017 [facility] Temperature Oral (F) 99.0 F 05/01/2017 [facility] Temperature Oral (F) 98.6 F 12/07/2016 [facility] Heart Rate 81 12/07/2016 [facility] Respitory Rate 18 12/07/2016 [facility] Systolic (mm Hg) 125 12/07/2016 [facility] Diastolic (mm Hg) 81 12/07/2016 [facility] Weight 87.273 12/07/2016 [facility] BMI Calculated 27.61 12/07/2016 [facility] Heart Rate 94 12/07/2016 [facility] Respitory Rate 18 12/07/2016 [facility] Systolic (mm Hg) 133 12/07/2016 [facility] Diastolic (mm Hg) 80 12/07/2016 [facility] Temperature Oral (F) 97.5 F 12/07/2016 [facility] Height 177.8 cm 12/07/2016 [facility] Heart Rate 89 12/04/2016 [facility] Respitory Rate 20 12/04/2016 [facility] Systolic (mm Hg) 113 12/04/2016 [facility] Diastolic (mm Hg) 70 12/04/2016 [facility] Temperature Oral (F) 98.4 F 12/04/2016 [facility] Height 180.34 cm 12/03/2016 [facility] BMI Calculated 25.58 12/03/2016 [facility] Weight 83.182 12/03/2016 [facility] Heart Rate 109 12/03/2016 [facility] Respitory Rate 18 12/03/2016 [facility] Temperature Oral (F) 99.6 F 12/03/2016 [facility] Systolic (mm Hg) 119 12/03/2016 [facility] Diastolic (mm Hg) 73 12/03/2016 [facility] Encounters Location Location Details Encounter Type Encounter Number Reason For Visit Attending Provider ADM Date DC Date Status Source [facility] Allopurinol [id number] 11/20/2014 11/20/2014 [facility] [id number] Dea Acsal 12/03/2016 12/04/2016 [facility] [id number] Breann Almeida 12/07/2016 12/07/2016 [facility] [id number] Charles Hernandez 05/01/2017 05/02/2017 [facility] [id number] Isabela Camejo 06/15/2017 06/17/2017 [facility] Procedures Procedure Code Date Perfomer Comments Source
--- OUTSIDE RECORDS SUMMARY | 2018-05-03 21:07 | XMS REPORT | Summary of Care ---
Author Author [facility] Organization [facility] Address Unknown Phone Unavailable Encounter HQ Bev(IDALIA) [id number] Date(s): 06/15/17 - 06/17/17 [facility] [address] [place] [address]- Encounter Diagnosis Pneumonia, unspecified organism (Final) - 06/23/17 Chronic obstructive pulmonary disease with acute lower respiratory infection (Final) - Gout, unspecified (Final) - Other diseases of bronchus, not elsewhere classified (Final) - Iron deficiency anemia, unspecified (Final) - Discharge Disposition: Home or Self Care Attending Physician: Isabela Camejo MD Admitting Physician: Isabela Camejo MD Vital Signs 1 2 3 Most recent to oldest [Reference Range]: 180.34 cm (06/15/17 7:50 PM) 170.18 cm (06/15/17 4:40 PM) 180.34 cm (06/15/17 11:37 AM) Height 98.7 DegF (06/17/17 7:04 AM) 99 DegF (06/17/17 3:06 AM) 98.1 DegF (06/16/17 11:06 PM) Temperature Oral [96.4-99.1 DegF] 113/72 mmHg (06/17/17 7:04 AM) 105/68 mmHg (06/17/17 3:06 AM) 132/82 mmHg (06/16/17 11:06 PM) Blood Pressure [90-140/60-90 mmHg] 18 BRMIN (06/17/17 7:04 AM) 18 BRMIN (06/17/17 3:06 AM) 18 BRMIN (06/16/17 11:06 PM) Respiratory Rate [14-20 BRMIN] 105 bpm *HI* (06/17/17 7:04 AM) 114 bpm *HI* (06/17/17 3:06 AM) 113 bpm *HI* (06/16/17 11:06 PM) Peripheral Pulse Rate [60-100 bpm] 90.227 kg (06/15/17 7:50 PM) 84.091 kg (06/15/17 4:40 PM) 91.136 kg (06/15/17 11:37 AM) Weight 27.74 m2 (06/15/17 7:50 PM) 29.04 m2 (06/15/17 4:40 PM) 28.02 m2 (06/15/17 11:37 AM) Body Mass Index Problem List Condition Effective Dates Status Health Status Informant Gout(Confirmed) Resolved Allergies, Adverse Reactions, Alerts Substance Reaction Severity Status NKDA Active Medications acetaminophen 650 mg, 2 tab, Route: PO, Drug form: TAB, Q4H, Dosing Weight 91.136, kg, PRN Rema n 1-3/Temp > 100.4 F, Start date: 06/15/17 15:54:00 CDT, Duration: 30 day, Stop date: 07/15/17 15:53:00 CDT Notes: Do not exceed 4 gm/day. (Same as: Tylenol) Start Date: 06/15/17 Stop Date: 06/17/17 Status: Discontinued acetaminophen-hydrocodone 325 mg-5 mg oral tablet 1 tab, Route: PO, Drug Form: TAB, Dosing Weight 91.136, kg, Q4H, PRN Pain Score 4-6, Start date: 06/15/17 15:54:00 CDT, Duration: 30 day, Stop date: 07/15/17 15 :53:00 CDT Notes: (Same as: Morris 325/5) Do not exceed 4gm/day of acetaminophen. Start Date: 06/15/17 Stop Date: 06/17/17 Status: Discontinued allopurinol 300 mg, 1 tab, Route: PO, Drug form: TAB, Daily, Dosing Weight 84.091, kg, Start date: 06/16/17 9:00:00 CDT, Duration: 30 day, Stop date: 07/15/17 9:00:00 CDT Notes: (Same as: Zyloprim) Start Date: 06/16/17 Stop Date: 06/17/17 Status: Discontinued allopurinol 300 mg oral tablet 300 mg=1 tab, PO, Daily Start Date: 06/15/17 Status: Ordered Ambien 5 mg, 1 tab, Route: PO, Drug form: TAB, Bedtime, Dosing Weight 90.227, kg, PRN I nsomnia, Start date: 06/16/17 0:47:00 CDT, Duration: 30 day, Stop date: 07/16/17 0:46:00 CDT Notes: (Same As: Ambien) Start Date: 06/16/17 Stop Date: 06/17/17 Status: Discontinued Augmentin 875 mg oral tablet 875 mg=1 tab, PO, BID, X 10 day, # 20 tab, 0 Refill(s) Start Date: 06/17/17 Stop Date: 06/27/17 Status: Completed cefepime + Sodium Chloride 0.9% IV 100 mL 1 gm, Route: IVPB, Drug form: INJ, ONCE, Dosing Weight 91.136, kg, Priority: STA T, Start date: 06/15/17 15:33:00 CDT, Stop date: 06/15/17 15:33:00 CDT, ABX Haley cation: Pneumonia Notes: (Same As: Maxipime) MEDICATION WASTE Product Size: 1000 mgProduc t Wasted: ___ mg Start Date: 06/15/17 Stop Date: 06/15/17 Status: Completed DuoNeb inhalation solution 3 ml, Route: NEB, Drug Form: SOLN, Dosing Weight 84.091, kg, RQID, Start date: 0 06/15/17 19:00:00 CDT, Duration: 30 day, Stop date: 07/15/17 15:00:00 CDT Notes: (Same as: Duoneb) Start Date: 06/15/17 Stop Date: 06/17/17 Status: Discontinued enoxaparin 40 mg, 0.4 mL, Route: SUB-Q, Drug form: INJ, [id number], Dosing Weight 91.136, kg, Start date: 06/15/17 16:00:00 CDT, Duration: 30 day, Stop date: 07/14/17 16:00: 00 CDT Notes: (Same as: Lovenox) Start Date: 06/15/17 Stop Date: 06/17/17 Status: Discontinued Levaquin 750 mg, 150 mL, Route: IVPB, Drug form: SOLN, [id number], Dosing Weight 84.091, kg, Start date: 06/15/17 18:00:00 CDT, Duration: 7 day, Stop date: 06/21/17 18:00:00 CDT, ABX Indication: Pneumonia Notes: (Same as:Levaquin) Start Date: 06/15/17 Stop Date: 06/17/17 Status: Discontinued Mobic 15 mg, 2 tab, Route: PO, Drug form: TAB, Daily, Dosing Weight 90.227, kg, Start date: 06/17/17 9:00:00 CDT, Duration: 30 day, Stop date: 07/16/17 9:00:00 CDT Notes: (Same as: Mobic) Start Date: 06/17/17 Stop Date: 06/17/17 Status: Discontinued morphine Sulfate 2 mg, 0.5 mL, Route: IVP, Drug form: SOLN, Q4H, Dosing Weight 91.136, kg, PRN Pa in Score 7-10, Start date: 06/15/17 15:54:00 CDT, Duration: 30 day, Stop date: 07/15/17 15:53:00 CDT Notes: (Same as:MORPhine Sulfate) Start Date: 06/15/17 Stop Date: 06/16/17 Status: Deleted morphine Sulfate 6 mg, 3 mL, Route: PO, Drug form: SOLN, Q4H, PRN Pain Score 7-10, Start date: 13:04:00 CDT, Duration: 30 day, Stop date: 07/16/17 13:03:00 CDT Notes: (Same as:MORPhine Sulfate) Start Date: 06/16/17 Stop Date: 06/17/17 Status: Discontinued ondansetron 4 mg, 2 mL, Route: IVP, Drug form: INJ, Q6H, Dosing Weight 91.136, kg, PRN Nause a & Vomiting, Start date: 06/15/17 15:54:00 CDT, Duration: 30 day, Stop date: 07/15/17 15:53:00 CDT Notes: (Same as: Dl) MEDICATION WASTE Product Size: 4 mgProduct Was elisha: ___ mg Start Date: 06/15/17 Stop Date: 06/17/17 Status: Discontinued vancomycin + Dextrose 5% in Water IV 250 mL 1,000 mg, Route: IVPB, [id number], Dosing Weight 90.227, kg, Priority: NOW, Start d ate: 06/16/17 8:35:00 CDT, Duration: 10 day, Stop date: 06/25/17 20:35:00 CDT, A BX Indication: Pneumonia Notes: TIME CRITICAL MEDICATION(Same As: Vancocin)Infusion rate< 1000 mg: infuse over 1 [id number] - 1500 mg: infuse over 1.5 [id number] - 2000 mg: infuse over 2 hours> 2001 mg: infuse over 2.5 hoursFor adult patients only: Round to nearest 250 mg per Medical Staff approval MEDICATION WASTE Product Size: 1000 mgProduct Wasted: ___ mg Start Date: 06/16/17 Stop Date: 06/17/17 Status: Discontinued vancomycin + Sodium Chloride 0.9% IV 500 mL 2,000 mg, Route: IVPB, ONCE, Dosing Weight 91.136, kg, Priority: STAT, Start pito e: 06/15/17 15:33:00 CDT, Stop date: 06/15/17 15:33:00 CDT, ABX Indication: Pneu monia Notes: TIME CRITICAL MEDICATION(Same As: Vancocin)Infusion rate< 1000 mg: infuse over 1 [id number] - 1500 mg: infuse over 1.5 [id number] - 2000 mg: infuse over 2 hours> 2001 mg: infuse over 2.5 hoursFor adult patients only: Round to nearest 250 mg per Medical Staff approval MEDICATION WASTE Product Size: 1000 mgProduct Wasted: ___ mg Start Date: 06/15/17 Stop Date: 06/15/17 Status: Completed Zosyn + Sodium Chloride 0.9% IV 100 mL 3.375 gm, Route: IVPB, Q8H, Dosing Weight 90.227, kg, CrCl >=20 ml/min infuse over 4 hours, Priority: NOW, Start date: 06/16/17 8:29:00 CDT, Stop date: 06/26/17 4:30:00 CDT, ABX Indication: Pneumonia Notes: (Same as: Zosyn)Dosing based on Piperacillin component MEDICATION WA AZAEL Product Size: 3375 mgProduct Wasted: ___ mg Start Date: 06/16/17 Stop Date: 06/17/17 Status: Discontinued Results ELECTROLYTES 1 2 3 Most recent to oldest [Reference Range]: 139 mEq/L (06/16/17 3:26 AM) 137 mEq/L (06/15/17 1:55 PM) Sodium Lvl [135-145 mEq/L] 4.3 mEq/L (06/16/17 3:26 AM) 4.5 mEq/L (06/15/17 1:55 PM) Potassium Lvl [3.5-5.1 mEq/L] 103 mEq/L (06/16/17 3:26 AM) 100 mEq/L (06/15/17 1:55 PM) Chloride Lvl [95-109 mEq/L] 28 mEq/L (06/16/17 3:26 AM) 31 mEq/L (06/15/17 1:55 PM) CO2 [24-32 mEq/L] 12.3 mEq/L (06/16/17 3:26 AM) 10.5 mEq/L (06/15/17 1:55 PM) AGAP [10.0-20.0 mEq/L] CHEM PANEL 1 2 3 Most recent to oldest [Reference Range]: 0.87 mg/dL (06/16/17 3:26 AM) 0.87 mg/dL (06/15/17 1:55 PM) Creatinine Lvl [0.50-1.40 mg/dL] 90 mL/min/1.73m2 1 *NA* (06/16/17 3:26 AM) 90 mL/min/1.73m2 2 *NA* (06/15/17 1:55 PM) eGFR 13 mg/dL (06/16/17 3:26 AM) 13 mg/dL (06/15/17 1:55 PM) BUN [7-22 mg/dL] 15 (06/16/17 3:26 AM) 15 (06/15/17 1:55 PM) B/C Ratio [6-25] 100 mg/dL *HI* (06/16/17 3:26 AM) 82 mg/dL (06/15/17 1:55 PM) Glucose Lvl [70-99 mg/dL] 6.7 g/dL (06/16/17 3:26 AM) 7.9 g/dL (06/15/17 1:55 PM) Total Protein [6.4-8.4 g/dL] 2.1 g/dL *LOW* (06/16/17 3:26 AM) 2.4 g/dL *LOW* (06/15/17 1:55 PM) Albumin Lvl [3.5-5.0 g/dL] 4.6 g/dL *HI* (06/16/17 3:26 AM) 5.5 g/dL *HI* (06/15/17 1:55 PM) Globulin [2.7-4.2 g/dL] 0.5 *LOW* (06/16/17 3:26 AM) 0.4 *LOW* (06/15/17 1:55 PM) A/G Ratio [0.7-1.6] 8.7 mg/dL (06/16/17 3:26 AM) 9.0 mg/dL (06/15/17 1:55 PM) Calcium Lvl [8.5-10.5 mg/dL] 12 unit/L (06/16/17 3:26 AM) 13 unit/L (06/15/17 1:55 PM) ALT [0-65 unit/L] 12 unit/L (06/16/17 3:26 AM) 12 unit/L (06/15/17 1:55 PM) AST [0-37 unit/L] 60 unit/L (06/16/17 3:26 AM) 65 unit/L (06/15/17 1:55 PM) Alk Phos [39-136 unit/L] 0.5 mg/dL (06/16/17 3:26 AM) 0.3 mg/dL (06/15/17 1:55 PM) Bili Total [0.2-1.3 mg/dL] <0.05 ng/mL (06/16/17 3:26 AM) Procalcitonin Lvl [0.00-0.10 ng/mL] 1Result Comment: The eGFR is calculated using the [...] from the National Kidney Disease Education Program ( NKDEP) which additionally recommends that when the eGFR is used in patients with extremes of body mass index for purposes of drug dosing, the eGFR should be mul tiplied by the estimated BMI. 2Result Comment: The eGFR is calculated using the [...] from the National Kidney Disease Education Program ( NKDEP) which additionally recommends that when the eGFR is used in patients with extremes of body mass index for purposes of drug dosing, the eGFR should be mul tiplied by the estimated BMI. CARDIAC ENZYMES 1 2 3 Most recent to oldest [Reference Range]: 41 unit/L (06/15/17 1:55 PM) Total CK [12-191 unit/L] <1.0 ng/mL (06/15/17 1:55 PM) CK MB [0.5-3.6 ng/mL] <2.4 (06/15/17 1:55 PM) CK MB Index [0.0-2.5] <0.02 ng/mL (06/15/17 1:55 PM) Troponin-I [0.00-0.40 ng/mL] LIPIDS 1 2 3 Most recent to oldest [Reference Range]: 2.88 *LOW* (06/16/17 3:26 AM) CHD Risk [4.00-7.30] 98 mg/dL (06/16/17 3:26 AM) Chol [<=199 mg/dL] 46 mg/dL (06/16/17 3:26 AM) Trig [<=149 mg/dL] 34 mg/dL *LOW* (06/16/17 3:26 AM) HDL [>=61 mg/dL] 55 mg/dL (06/16/17 3:26 AM) LDL (Calculated) [<=99 mg/dL] 9 *NA* (06/16/17 3:26 AM) VLDL ANEMIA STUDY 1 2 3 Most recent to oldest [Reference Range]: 19 ug/dl *LOW* (06/16/17 3:26 AM) Iron [45-160 ug/dl] 9 % *LOW* (06/16/17 3:26 AM) % Satur Fe [12-57 %] 202 ug/dl (06/16/17 3:26 AM) UIBC [110-370 ug/dl] 328 pg/mL (06/16/17 3:26 AM) Vitamin B12 Lvl [254-1320 pg/mL] 9.9 ng/mL (06/16/17 3:26 AM) Folate Lvl [>=3.0 ng/mL] 221 ug/dl *LOW* (06/16/17 3:26 AM) TIBC [228-428 ug/dl] URINE AND STOOL 1 2 3 Most recent to oldest [Reference Range]: Negative (06/17/17 4:37 AM) Occult Bld Stl [Negative] HEMATOLOGY 1 2 3 Most recent to oldest [Reference Range]: 12.5 K/CMM *HI* (06/17/17 4:13 AM) 10.3 K/CMM (06/16/17 3:26 AM) 12.4 K/CMM *HI* (06/15/17 1:55 PM) WBC [3.7-10.4 K/CMM] 3.80 M/CMM *LOW* (06/17/17 4:13 AM) 3.56 M/CMM *LOW* (06/16/17 3:26 AM) 4.03 M/CMM *LOW* (06/15/17 1:55 PM) RBC [4.70-6.10 M/CMM] 8.5 g/dL *LOW* (06/17/17 4:13 AM) 8.0 g/dL *LOW* (06/16/17 3:26 AM) 9.0 g/dL *LOW* (06/15/17 1:55 PM) Hgb [14.0-18.0 g/dL] 27.1 % *LOW* (06/17/17 4:13 AM) 25.5 % *LOW* (06/16/17 3:26 AM) 28.7 % *LOW* (06/15/17 1:55 PM) Hct [42.0-54.0 %] 71.2 fL *LOW* (06/17/17 4:13 AM) 71.7 fL *LOW* (06/16/17 3:26 AM) 71.1 fL *LOW* (06/15/17 1:55 PM) MCV [80.0-94.0 fL] 22.5 pg *LOW* (06/17/17 4:13 AM) 22.6 pg *LOW* (06/16/17 3:26 AM) 22.4 pg *LOW* (06/15/17 1:55 PM) MCH [27.0-31.0 pg] 31.5 g/dL *LOW* (06/17/17 4:13 AM) 31.5 g/dL *LOW* (06/16/17 3:26 AM) 31.5 g/dL *LOW* (06/15/17 1:55 PM) MCHC [32.0-36.0 g/dL] 17.4 % *HI* (06/17/17 4:13 AM) 17.7 % *HI* (06/16/17 3:26 AM) 17.8 % *HI* (06/15/17 1:55 PM) RDW [11.5-14.5 %] 6.0 fL *LOW* (06/17/17 4:13 AM) 6.5 fL *LOW* (06/16/17 3:26 AM) 6.3 fL *LOW* (06/15/17 1:55 PM) MPV [7.4-10.4 fL] 626 K/CMM *HI* (06/17/17 4:13 AM) 582 K/CMM *HI* (06/16/17 3:26 AM) 705 K/CMM *HI* (06/15/17 1:55 PM) Platelet [133-450 K/CMM] 65.4 % (06/17/17 4:13 AM) 66.3 % (06/16/17 3:26 AM) 71.1 % (06/15/17 1:55 PM) Segs [45.0-75.0 %] 24.5 % (06/17/17 4:13 AM) 23.4 % (06/16/17 3:26 AM) 20.6 % (06/15/17 1:55 PM) Lymphocytes [20.0-40.0 %] 6.1 % (06/17/17 4:13 AM) 6.0 % (06/16/17 3:26 AM) 6.0 % (06/15/17 1:55 PM) Monocytes [2.0-12.0 %] 3.4 % (06/17/17 4:13 AM) 3.5 % (06/16/17 3:26 AM) 1.9 % (06/15/17 1:55 PM) Eosinophils [0.0-4.0 %] 0.6 % (06/17/17 4:13 AM) 0.8 % (06/16/17 3:26 AM) 0.4 % (06/15/17 1:55 PM) Basophils [0.0-1.0 %] 8.2 K/CMM *HI* (06/17/17 4:13 AM) 6.9 K/CMM (06/16/17 3:26 AM) 8.8 K/CMM *HI* (06/15/17 1:55 PM) Segs-Bands # [1.5-8.1 K/CMM] 3.1 K/CMM (06/17/17 4:13 AM) 2.4 K/CMM (06/16/17 3:26 AM) 2.6 K/CMM (06/15/17 1:55 PM) Lymphocytes # [1.0-5.5 K/CMM] 0.8 K/CMM (06/17/17 4:13 AM) 0.6 K/CMM (06/16/17 3:26 AM) 0.7 K/CMM (06/15/17 1:55 PM) Monocytes # [0.0-0.8 K/CMM] 0.4 K/CMM (06/17/17 4:13 AM) 0.4 K/CMM (06/16/17 3:26 AM) 0.2 K/CMM (06/15/17 1:55 PM) Eosinophils # [0.0-0.5 K/CMM] 0.1 K/CMM (06/17/17 4:13 AM) 0.1 K/CMM (06/16/17 3:26 AM) 0.1 K/CMM (06/15/17 1:55 PM) Basophils # [0.0-0.2 K/CMM] 1+ *ABN* (06/17/17 4:13 AM) 1+ *ABN* (06/16/17 3:26 AM) 1+ *ABN* (06/15/17 1:55 PM) Microcyte [None Seen] MOLECULAR DIAGNOSTIC 1 2 3 Most recent to oldest [Reference Range]: [employer] Swab (06/16/17 11:00 AM) Source Adenovirus PCR [employer] Swab (06/16/17 11:00 AM) Source Parainfluenza Virus PCR Negative (06/16/17 11:00 AM) Parainfluenza 1 PCR [Negative] Negative (06/16/17 11:00 AM) Parainfluenza 2 PCR [Negative] Negative (06/16/17 11:00 AM) Parainfluenza 3 PCR [Negative] [employer] Swab (06/16/17 11:00 AM) Source Respiratory Panel PCR Negative (06/16/17 11:00 AM) Influenza A PCR [Negative] Negative (06/16/17 11:00 AM) Influenza B PCR [Negative] Negative (06/16/17 11:00 AM) RSV PCR [Negative] Negative (06/16/17 11:00 AM) Adenovirus PCR [Negative] BACTERIAL - SEROLOGY 1 2 3 Most recent to oldest [Reference Range]: Urine *NA* (06/16/17 6:30 PM) Source Strep Positive *ABN* (06/16/17 6:30 PM) Strep pneumoniae Ag [Negative] Immunizations No data available for this section Procedures No data available for this section Social History Social History Type Response Smoking Status Former smoker; Ready to change: No; Concerns about tobacco use in household: No; Exposure to Tobacco Smoke None; Cigarette Smoking Last 365 Days No; Reg Smoking Cessation Counseling No entered on: 06/15/17 Assessment and Plan No data available for this section
--- OUTSIDE RECORDS SUMMARY | 2018-05-03 21:07 | XMS REPORT ---
Author Author Marv Carpenter Organization [employer] Address Unknown Phone Unavailable Care Team Providers Care Back Seam Stitcher Name Role Phone Marv Carpenter CP Unavailable Encounters Encounter Location Date Refill [facility] 2014 Problems Problem Type Condition ICD-9 Code Onset Dates Condition Status Problem Esophageal reflux 530.81 Active Social History Social History Element Qualifiers Date Reported Tobacco Use: . Are you a: never smoker September 05, 2013 Do you have pets? . Status: Yes, Type: dog(s) September 05, 2013 Caffeine intake? . Status: Yes, What type: Coffee September 05, 2013 Do you exercise? . Answer: Yes September 05, 2013 Do you drink alcohol? . Status: Yes, Type: Beer September 05, 2013 Summary Purpose [employer] Submission
--- OUTSIDE RECORDS SUMMARY | 2018-05-03 21:07 | XMS REPORT | Summary of Care ---
Author Author [facility] Organization [facility] Address Unknown Phone Unavailable Encounter HQ Bev(FIN) [id number] Date(s): 05/01/17 - 05/01/17 [facility] [address] [place] [address]- [phone] Encounter Diagnosis CAP (community acquired pneumonia) (Discharge Diagnosis) - 05/01/17 Pneumonia, unspecified organism (Final) - 05/09/17 Allergy status to penicillin (Final) - Discharge Disposition: Left Against Medical Advise Attending Physician: Charles Hernandez MD Vital Signs 1 2 3 Most recent to oldest [Reference Range]: 180.34 cm (05/01/17 3:50 PM) Height 99.0 DegF (05/01/17 3:50 PM) Temperature Oral [96.4-99.1 DegF] 115/76 mmHg (05/01/17 7:54 PM) 146/91 mmHg *HI* (05/01/17 5:10 PM) 143/86 mmHg *HI* (05/01/17 3:50 PM) Blood Pressure [90-140/60-90 mmHg] 25 BRMIN *HI* (05/01/17 7:54 PM) 23 BRMIN *HI* (05/01/17 5:10 PM) 18 BRMIN (05/01/17 3:50 PM) Respiratory Rate [14-20 BRMIN] 120 bpm *HI* (05/01/17 7:54 PM) 121 bpm *HI* (05/01/17 5:10 PM) 123 bpm *HI* (05/01/17 3:50 PM) Peripheral Pulse Rate [60-100 bpm] 85 kg (05/01/17 3:50 PM) Weight 26.14 m2 (05/01/17 3:50 PM) Body Mass Index Problem List Condition Effective Dates Status Health Status Informant Gout(Confirmed) Resolved Allergies, Adverse Reactions, Alerts Substance Reaction Severity Status NKDA Active Medications Levaquin 750 mg, 150 mL, Route: IVPB, Drug form: SOLN, ONCE, Dosing Weight 85, kg, Start date: 05/01/17 17:05:00 HORTICULTURE SUPERVISOR, Stop date: 05/01/17 17:05:00 HORTICULTURE SUPERVISOR, ABX Indication: P neumonia Notes: (Same as:Levaquin) Start Date: 05/01/17 Stop Date: 05/01/17 Status: Completed Levaquin 750 mg oral tablet 750 mg=1 tab, PO, Q24H, X 7 day, # 7 tab, 0 Refill(s) Start Date: 05/01/17 Stop Date: 05/08/17 Status: Completed Sodium Chloride 0.9% (Bolus) IV 2,000 mL, 2000 ml/hr, Infuse Over: 1 hr, Route: IV, 2,000, Drug form: INJ, ONCE, Dosing Weight 85 kg, Start date: 05/01/17 16:25:00 HORTICULTURE SUPERVISOR, Stop date: 05/01/17 16: 25:00 HORTICULTURE SUPERVISOR Start Date: 05/01/17 Stop Date: 05/01/17 Status: Completed Sodium Chloride 0.9% (Bolus) IV 1,000 mL, 1000 ml/hr, Infuse Over: 1 hr, Route: IV, 1,000, Drug form: INJ, ONCE, Priority: STAT, Dosing Weight 85 kg, Start date: 05/01/17 16:22:00 HORTICULTURE SUPERVISOR, Stop da te: 05/01/17 16:22:00 HORTICULTURE SUPERVISOR Start Date: 05/01/17 Stop Date: 05/01/17 Status: Discontinued Tessalon Perles 100 mg oral capsule 100 mg=1 cap, PO, TID, X 7 day, # 21 cap, 0 Refill(s) Start Date: 05/01/17 Stop Date: 05/08/17 Status: Completed Results ELECTROLYTES Most recent to 1 oldest [Reference Range]: Sodium Lvl [135-145 133 mEq/L mEq/L] *LOW* (05/01/17 4:55 PM) Potassium Lvl 4.0 mEq/L [3.5-5.1 mEq/L] (05/01/17 4:55 PM) Chloride Lvl [95-109 100 mEq/L mEq/L] (05/01/17 4:55 PM) CO2 [24-32 mEq/L] 26 mEq/L (05/01/17 4:55 PM) AGAP [10.0-20.0 11.0 mEq/L mEq/L] (05/01/17 4:55 PM) CHEM PANEL Most recent to 1 oldest [Reference Range]: Creatinine Lvl 0.94 mg/dL [0.50-1.40 mg/dL] (05/01/17 4:55 PM) eGFR 84 mL/min/1.73m2 1 *NA* (05/01/17 4:55 PM) BUN [7-22 mg/dL] 15 mg/dL (05/01/17 4:55 PM) B/C Ratio [6-25] 16 (05/01/17 4:55 PM) Glucose Lvl [70-99 107 mg/dL mg/dL] *HI* (05/01/17 4:55 PM) Total Protein 7.5 g/dL [6.4-8.4 g/dL] (05/01/17 4:55 PM) Albumin Lvl [3.5-5.0 2.4 g/dL g/dL] *LOW* (05/01/17 4:55 PM) Globulin [2.7-4.2 5.1 g/dL g/dL] *HI* (05/01/17 4:55 PM) A/G Ratio [0.7-1.6] 0.5 *LOW* (05/01/17 4:55 PM) Calcium Lvl 8.5 mg/dL [8.5-10.5 mg/dL] (05/01/17 4:55 PM) ALT [0-65 unit/L] 17 unit/L (05/01/17 4:55 PM) AST [0-37 unit/L] 14 unit/L (05/01/17 4:55 PM) Alk Phos [39-136 71 unit/L unit/L] (05/01/17 4:55 PM) Bili Total [0.2-1.3 0.3 mg/dL mg/dL] (05/01/17 4:55 PM) Lactic Acid Lvl 0.9 mMol/L [0.5-2.2 mMol/L] (05/01/17 4:55 PM) Procalcitonin Lvl 0.11 ng/mL [0.00-0.10 ng/mL] *HI* (05/01/17 4:55 PM) 1Result Comment: The eGFR is calculated using [...] tiplied by the estimated BMI. CARDIAC ENZYMES Most recent to 1 oldest [Reference Range]: CK MB [0.5-3.6 0.7 ng/mL ng/mL] (05/01/17 4:55 PM) Troponin-I <0.02 ng/mL [0.00-0.40 ng/mL] (05/01/17 4:55 PM) HEMATOLOGY Most recent to 1 oldest [Reference Range]: WBC [3.7-10.4 K/CMM] 11.4 K/CMM *HI* (05/01/17 4:55 PM) RBC [4.70-6.10 3.64 M/CMM M/CMM] *LOW* (05/01/17 4:55 PM) Hgb [14.0-18.0 g/dL] 8.6 g/dL *LOW* (05/01/17 4:55 PM) Hct [42.0-54.0 %] 27.0 % *LOW* (05/01/17 4:55 PM) MCV [80.0-94.0 fL] 74.1 fL *LOW* (05/01/17 4:55 PM) MCH [27.0-31.0 pg] 23.7 pg *LOW* (05/01/17 4:55 PM) MCHC [32.0-36.0 32.0 g/dL g/dL] (05/01/17 4:55 PM) RDW [11.5-14.5 %] 16.5 % *HI* (05/01/17 4:55 PM) MPV [7.4-10.4 fL] 6.8 fL *LOW* (05/01/17 4:55 PM) Platelet [133-450 544 K/CMM K/CMM] *HI* (05/01/17 4:55 PM) Segs [45.0-75.0 %] 78.7 % *HI* (05/01/17 4:55 PM) Lymphocytes 10.3 % [20.0-40.0 %] *LOW* (05/01/17 4:55 PM) Monocytes [2.0-12.0 8.1 % %] (05/01/17 4:55 PM) Eosinophils [0.0-4.0 2.4 % %] (05/01/17 4:55 PM) Basophils [0.0-1.0 0.5 % %] (05/01/17 4:55 PM) Segs-Bands # 9.0 K/CMM [1.5-8.1 K/CMM] *HI* (05/01/17 4:55 PM) Lymphocytes # 1.2 K/CMM [1.0-5.5 K/CMM] (05/01/17 4:55 PM) Monocytes # [0.0-0.8 0.9 K/CMM K/CMM] *HI* (05/01/17 4:55 PM) Eosinophils # 0.3 K/CMM [0.0-0.5 K/CMM] (05/01/17 4:55 PM) Basophils # [0.0-0.2 0.1 K/CMM K/CMM] (05/01/17 4:55 PM) Microcyte [None 1+ Seen] *ABN* (05/01/17 4:55 PM) VIRAL - SEROLOGY Most recent to 1 oldest [Reference Range]: Influ A [Negative] Negative (05/01/17 4:55 PM) Influ B [Negative] Negative (05/01/17 4:55 PM) Immunizations No data available for this section [...]
--- OUTSIDE RECORDS SUMMARY | 2018-05-03 21:07 | XMS REPORT | Summary of Care ---
Author Author [facility] Organization [facility] Address Unknown Phone Unavailable Encounter STEF Pablo(IDALIA) [id number] Date(s): 12/07/16 - 12/07/16 [facility] [address] [place] [address]- Discharge Diagnosis: Arthralgia Discharge Disposition: Home or Self Care Attending Physician: Breann Almeida MD Vital Signs Most recent to 1 2 oldest [Reference Range]: Height 177.8 cm (12/07/16 2:07 PM) Temperature Oral 98.6 DegF 97.5 DegF [96.4-99.1 DegF] (12/07/16 5:38 PM) (12/07/16 2:07 PM) Blood Pressure 125/81 mmHg 133/80 mmHg [90-140/60-90 mmHg] (12/07/16 5:38 PM) (12/07/16 2:07 PM) Respiratory Rate 18 BRMIN 18 BRMIN [14-20 BRMIN] (12/07/16 5:38 PM) (12/07/16 2:07 PM) Peripheral Pulse 81 bpm 94 bpm Rate [60-100 bpm] (12/07/16 5:38 PM) (12/07/16 2:07 PM) Weight 87.273 kg (12/07/16 2:07 PM) Body Mass Index 27.61 m2 (12/07/16 2:07 PM) Problem List Condition Effective Dates Status Health Status Informant Gout(Confirmed) Resolved Allergies, Adverse Reactions, Alerts Substance Reaction Severity Status NKDA Active Medications allopurinol 300 mg oral tablet 300 mg=1 tab, PO, Daily, # 30 tab, 0 Refill(s) Start Date: 12/07/16 Status: Ordered Azithromycin 5 Day Dose Pack 250 mg oral tablet See Instructions, Take 2 tablets by mouth the first day then 1 tablet by mouth d ays 2-5., X 5 day, # 6 tab, 0 Refill(s) Start Date: 12/07/16 Stop Date: 12/12/16 Status: Ordered colchicine 0.6 mg oral tablet 0.6 mg=1 tab, PO, Daily, Take 2 tabs at the first sign of a gout flare followed by 0.6 mg one hour later, # 8 tab, 0 Refill(s) Start Date: 12/07/16 Stop Date: 12/14/16 Status: Ordered Gold Bar 7.5/325 oral tablet 1 tab, Route: PO, Drug Form: TAB, Dosing Weight 87.273, kg, ONCE, STAT, Start da te: 12/07/16 14:35:00 CDT, Stop date: 12/07/16 14:35:00 CDT Notes: Same as Gold Bar 325-7.5mg Do not exceed 4gm/day of acetaminophen. Start Date: 12/07/16 Stop Date: 12/07/16 Status: Completed Results No data available for this section Immunizations No data available for this section Procedures No data available for this section Social History Social History Type Response Smoking Status Never smoker; Exposure to Tobacco Smoke None; Cigarette Smoking Last 365 Days No; Reg Smoking Cessation Counseling No Assessment and Plan No data available for this section
--- OUTSIDE RECORDS SUMMARY | 2018-05-03 21:07 | XMS REPORT | Summary of Care ---
Author Author [facility] Organization [facility] Address Unknown Phone Unavailable Encounter STEF Pablo(IDALIA) [id number] Date(s): 12/03/16 - 12/03/16 [facility] [address] [place] [address]- [phone] Discharge Diagnosis: PNA (pneumonia) Discharge Disposition: Home or Self Care Attending Physician: Dea Bnez MD Vital Signs Most recent to 1 2 oldest [Reference Range]: Height 180.34 cm (12/03/16 4:15 PM) Temperature Oral 98.4 DegF 99.6 DegF [96.4-99.1 DegF] (12/03/16 7:21 PM) *HI* (12/03/16 4:15 PM) Blood Pressure 113/70 mmHg 119/73 mmHg [90-140/60-90 mmHg] (12/03/16 7:21 PM) (12/03/16 4:15 PM) Respiratory Rate 20 BRMIN 18 BRMIN [14-20 BRMIN] (12/03/16 7:21 PM) (12/03/16 4:15 PM) Peripheral Pulse 89 bpm 109 bpm Rate [60-100 bpm] (12/03/16 7:21 PM) *HI* (12/03/16 4:15 PM) Weight 83.182 kg (12/03/16 4:15 PM) Body Mass Index 25.58 m2 (12/03/16 4:15 PM) Problem List Condition Effective Dates Status Health Status Informant Gout(Confirmed) Resolved Allergies, Adverse Reactions, Alerts Substance Reaction Severity Status NKDA Active Medications cefTRIAXone + sodium chloride 0.9% INJ 100 mL 1 gm, Route: IVPB, Drug form: PDR/INJ, ONCE, Dosing Weight 83.182, kg, Priority: STAT, Start date: 12/03/16 16:59:00 CDT, Duration: 1 doses or times, Stop date: 12/03/16 16:59:00 CDT, ABX Indication: Pneumonia Notes: (Same As: Rocephin).Use with 100 mL NS and infuse over 30 min MEDICA TION WASTE Product Size: 1000 mgProduct Wasted: ___ mg Start Date: 12/03/16 Stop Date: 12/03/16 Status: Completed Levaquin 750 mg oral tablet 750 mg=1 tab, PO, Q24H, X 7 day, # 7 tab, 0 Refill(s) Start Date: 12/03/16 Stop Date: 12/10/16 Status: Ordered Motrin 800 mg, 1 tab, Route: PO, Drug form: TAB, ONCE, Dosing Weight 83.182, kg, Priori ty: STAT, Start date: 12/03/16 17:00:00 CDT, Stop date: 12/03/16 17:00:00 CDT Notes: (Same as: Motrin)"Do Not Crush" Take with food. Start Date: 12/03/16 Stop Date: 12/03/16 Status: Completed Sodium Chloride 0.9% (Bolus) IV 1,000 mL, 1,000 ml/hr, Infuse Over: 1 hr, Route: IV, 1,000, Drug form: INJ, ONCE , Priority: STAT, Dosing Weight 83.182 kg, Start date: 12/03/16 16:30:00 CDT, Du ration: 1 doses or times, Stop date: 12/03/16 16:30:00 CDT Start Date: 12/03/16 Stop Date: 12/03/16 Status: Completed Zithromax + sodium chloride 0.9% INJ 250 mL 500 mg, Route: IVPB, Drug form: PDR/INJ, ONCE, Dosing Weight 83.182, kg, Priorit y: STAT, Start date: 12/03/16 16:59:00 CDT, Duration: 1 doses or times, Stop pito e: 12/03/16 16:59:00 CDT, ABX Indication: Pneumonia Notes: (Same As: Zithromax IV) Start Date: 12/03/16 Stop Date: 12/03/16 Status: Completed Results ELECTROLYTES Most recent to 1 oldest [Reference Range]: Sodium Lvl [135-145 135 mEq/L mEq/L] (12/03/16 5:06 PM) Potassium Lvl 3.7 mEq/L [3.5-5.1 mEq/L] (12/03/16 5:06 PM) Chloride Lvl [95-109 100 mEq/L mEq/L] (12/03/16 5:06 PM) CO2 [24-32 mEq/L] 27 mEq/L (12/03/16 5:06 PM) AGAP [10.0-20.0 11.7 mEq/L mEq/L] (12/03/16 5:06 PM) CHEM PANEL Most recent to 1 oldest [Reference Range]: Creatinine Lvl 1.03 mg/dL [0.50-1.40 mg/dL] (12/03/16 5:06 PM) eGFR 75 mL/min/1.73m2 1 *NA* (12/03/16 5:06 PM) BUN [7-22 mg/dL] 11 mg/dL (12/03/16 5:06 PM) Glucose Lvl [70-99 112 mg/dL mg/dL] *HI* (12/03/16 5:06 PM) Calcium Lvl 8.7 mg/dL [8.5-10.5 mg/dL] (12/03/16 5:06 PM) 1Result Comment: The eGFR is calculated [...] be mul tiplied by the estimated BMI. URINE AND STOOL Most recent to 1 oldest [Reference Range]: UA Turbidity [Clear] Clear (12/03/16 6:47 PM) UA Color [Yellow] Yellow *NA* (12/03/16 6:47 PM) UA pH [5.0-8.0] 5.5 (12/03/16 6:47 PM) UA Spec Grav <=1.005 [<=1.030] *NA* (12/03/16 6:47 PM) UA Glucose Negative [Negative] (12/03/16 6:47 PM) UA Blood [Negative] Trace *ABN* (12/03/16 6:47 PM) UA Ketones Negative [Negative] *NA* (12/03/16 6:47 PM) UA Protein [Negative 30 mg/dL mg/dL] *ABN* (12/03/16 6:47 PM) UA Urobilinogen 1.0 EU/dL [0.1-1.0 EU/dL] (12/03/16 6:47 PM) UA Bili [Negative] Negative *NA* (12/03/16 6:47 PM) UA Leuk Est Negative [Negative] (12/03/16 6:47 PM) UA Nitrite Negative [Negative] (12/03/16 6:47 PM) UA WBC [None Seen 0-2 /HPF /HPF] (12/03/16 6:47 PM) UA RBC [0-2 /HPF] 0-2 /HPF (12/03/16 6:47 PM) UA Bacteria [None Occasional /HPF Seen /HPF] (12/03/16 6:47 PM) UA Sq Epi [Few /LPF] Occasional /LPF (12/03/16 6:47 PM) UA Mucus [None Seen Rare /LPF /LPF] (12/03/16 6:47 PM) HEMATOLOGY Most recent to 1 oldest [Reference Range]: WBC [3.7-10.4 K/CMM] 13.7 K/CMM *HI* (12/03/16 5:06 PM) RBC [4.70-6.10 3.95 M/CMM M/CMM] *LOW* (12/03/16 5:06 PM) Hgb [14.0-18.0 g/dL] 11.0 g/dL *LOW* (12/03/16 5:06 PM) Hct [42.0-54.0 %] 33.7 % *LOW* (12/03/16 5:06 PM) MCV [80.0-94.0 fL] 85.3 fL (12/03/16 5:06 PM) MCH [27.0-31.0 pg] 27.9 pg (12/03/16 5:06 PM) MCHC [32.0-36.0 32.7 g/dL g/dL] (12/03/16 5:06 PM) RDW [11.5-14.5 %] 14.1 % (12/03/16 5:06 PM) Platelet [133-450 242 K/CMM K/CMM] (12/03/16 5:06 PM) MPV [7.4-10.4 fL] 7.4 fL (12/03/16 5:06 PM) Segs [45.0-75.0 %] 82.3 % *HI* (12/03/16 5:06 PM) Lymphocytes 8.9 % [20.0-40.0 %] *LOW* (12/03/16 5:06 PM) Monocytes [2.0-12.0 8.3 % %] (12/03/16 5:06 PM) Eosinophils [0.0-4.0 0.2 % %] (12/03/16 5:06 PM) Basophils [0.0-1.0 0.3 % %] (12/03/16 5:06 PM) Segs-Bands # 11.3 K/CMM [1.5-8.1 K/CMM] *HI* (12/03/16 5:06 PM) Lymphocytes # 1.2 K/CMM [1.0-5.5 K/CMM] (12/03/16 5:06 PM) Monocytes # [0.0-0.8 1.1 K/CMM K/CMM] *HI* (12/03/16 5:06 PM) VIRAL - SEROLOGY Most recent to 1 oldest [Reference Range]: Influ A [Negative] Negative (12/03/16 5:06 PM) Influ B [Negative] Negative (12/03/16 5:06 PM) Immunizations No data available for this section Procedures No data available for this section Social History Social History Type Response Smoking Status Never smoker; Exposure to Tobacco Smoke None; Cigarette Smoking Last 365 Days No; Reg Smoking Cessation Counseling No Assessment and Plan No data available for this section
--- OUTSIDE RECORDS SUMMARY | 2018-05-03 21:08 | XMS REPORT ---
Author Author [facility] [place] Address Unknown Phone Unavailable Care Team Providers Care Rhinologist Name Role Phone FERNANDA JONATHON Unavailable Unavailable GRANT RASHEED Unavailable Unavailable Problems This patient has no known problems. Allergies, Adverse Reactions, Alerts This patient has no known allergies or adverse reactions. Medications This patient has no known medications. Results Test Description Test Time Test Comments Text Results Atomic Results Result Comments AFB CULTURE + SMEAR 2017-09-07 12:58:00 CULTURE (BEAKER) (test nyhm=1634) No acid-fast bacilli isolated in 42 days AFB SMEAR (BEAKER) (test gcdj=968) No acid fast bacilli seen ANG, REMOVAL OF TUNNELED CVC W/O [id number] 17:17:00Reason for Exam:-> Malignant neoplasm of lower lobe, right bronchus or lung [C34.31]FINAL REPORT Right internal jugular chest port insertion History: Lung cancer. Modality: Sonography and fluoroscopy. Sedation: No sedation was administered. Local anesthesia was achieved with lidocaine 1%.Inspector Tool: Claude Marcos MD Practice Management Consultant: Marquez Pedroza. Approach: Right internal jugular vein Estimated blood loss: < 5 cc. Specimen: None. Fluoroscopy Time: 0.8 min.Reference Air Kerma (Ka, r): 10.8 mGy. Technique: Informed written consent was obtained. Discussion of risks, benefits, and alternatives were made with the patient. The patient expressed un derstanding and agreed to proceed. A universal timeout was performed prior to s tarting the procedure. All elements maximal sterile barrier technique was utili zed for this procedure, including utilization of sterile scrub solution for skin prep, a large sterile sheet to cover the areas of the patient that were not pre pped, and hand hygiene, mask, head covering, and sterile gown for performing rad iologist and scrub technologist. The skin was anesthetized with 2% lidocaine. U ltrasound evaluation showed a patent and compressible right internal jugular vei n, which was punctured under direct real-time ultrasound guidance with a micropu ncture needle. An ultrasound image was saved to PACS. A 0.018 inch wire was placed through the needle into the right atrium. A 4 Gabonese micropuncture sheath was placed. A subcutaneous tunnel and pocket were created in the right anterior chest wall by blunt dissection. The pocket was flushed with antibiotic solutio n. A 6F Bard port was placed within the pocket and the catheter brought through the tunnel. The catheter was cut at 20 cm. A peel-away sheath was placed in the right IJ vein and the catheter was advanced through the sheath, with its distal tip terminating in the cavoatrial junction. The peel-away sheath was removed. Th e port was flushed and aspirated easily following placement. The skin incision was closed with 3-0 running subcuticular Monocryl and Steri-Strips. The small j ugular incision site was closed using Steri-Strips. The patient tolerated the p rocedure well and left the department in the same condition. Patient received 1 gram of Vancomycin intravenously pre-procedure. Results: Spot radiogr aph of the chest demonstrates the new right IJ Port-A-Cath to lie in the expecte d position with its tip overlying the cavoatrial junction. Impression: Successful, uncomplicated placement of a right internal j ugular chest port. The port is ready for immediate use. Signed: [facility] margar[facility] Marcosepdale Verified Date/Time: 08/22/2017 17:17:05 Reading Location: [place] [address] Angio Body Reading Room [id number] 12:15:00* Test Item Value Reference Range Comments PARTIAL THROMBOPLASTIN TIME (BEAKER) (test nttv=407) 27.8 seconds 22.5-36.0 PROTHROMBIN TIME/[id number] 12:14:00* Test Item Value Reference Range Comments PROTIME (BEAKER) (test ccym=963) 13.2 seconds 11.7-14.7 INR (BEAKER) (test xxxm=929) 1.0 <=5.9 RECOMMENDED COUMADIN/WARFARIN INR THERAPY RANGESSTANDARD DOSE: 2.0 - 3.0 Inclu lamin: PROPHYLAXIS for venous thrombosis, systemic embolization; TREATMENT for jeanna ous thrombosis and/or pulmonary embolus.HIGH RISK: Target INR is 2.5-3.5 for pat ients with mechanical heart valves.PLATELET [id number] 11:49:00* Test Item Value Reference Range Comments PLATELET COUNT (BEAKER) (test ivfg=864) 246 K/CU MM 150-450 FUNGUS CULTURE + [id number] 12:55:00* Test Item Value Reference Range Comments CULTURE (BEAKER) (test mhvs=7809) No fungus isolated in 28 days FUNGUS SMEAR (BEAKER) (test fwav=3060) No fungi seen BLOOD [id number] 18:00:00* Test Item Value Reference Range Comments CULTURE (BEAKER) (test dxdk=4767) No growth in 5 days BLOOD [id number] 11:00:00* Test Item Value Reference Range Comments CULTURE (BEAKER) (test smvr=0222) No growth in 5 days TISSUE [id number] 14:25:00Surgical Pathology Report Case: [id number] Authorizing Provider: Grant Rasheed MD Collected: 07/25/2017 1553 Ordering Location: [address] Received: 07/25/2017 1553 Service Pathologist: Josue Elliott MD Specimen: Leg, Left PART A LEFT LEG MASS, BIOPSY:INVASIVE CARCINOMA WITH SQUAMOUS DIFFERENTIATION. Signing Pathologist Direct Phone Line: [phone] signed by Josue Elliott MD on 07/26/2017 at 2:25 PMPreliminary result electronically signed by Josue Elliott MD on 07/26/2017 at 8:11 AMImmunohistochemical studies performed on block A1 demonstrate the neoplastic cells to be positive for p40. They are negative for CK7 and CK20. 44572, 87416, 09173Ljvv leg mass concerning for mets, known lung cancerLeft leg mass biopsyThe specimen is received in a formalin-filled container and labeled with the patient's information and labeled "left leg mass biopsy" and consists of three off white core biopsies ranging in length from 1 to 1.7 cm, submitted A1. CG/pl The following special studies were performed on this case and the interpretation is incorporated in the diagnostic report above:BLOCK A1- P40, CK7, DY09Axi immunohistochemistry test was developed and its performance characteristics dete rmined by [facility], Pathology Laboratory. It has not been cl eared or approved by the U.S. Food and Drug Administration. The FDA has determin ed that such clearance or approval is not necessary. The test is used for clinic al purposes. It should not be regarded as investigational or for research. This laboratory is certified under the Clinical Laboratory Improvement Amendments of 1988 (CLIA-88) as qualified to perform high complexity clinical laboratory testi ng.BLOOD [id number] 13:05:00* Test Item Value Reference Range Comments CULTURE ([employer]) (test nnnc=1010) From Anaerobic Bottle Only Haemophilus influenza Type BBeta-lactamase negative GRAM STAIN RESULT (TicTacTiAKER) (test qlop=3049) From anaerobic bottle only: gram negative rods HAEMOPHILUS INFLUENZA DETECTEDFirst line therapy: ceftriaxone meropenem if criti tania ill or history of an ESBL producing pathogenDe-escalate based on susceptib ilitiesOther organisms and resistance markers not contained in this PCR panel ca nnot be excluded and follow-up of traditional culture results is required. This sample was tested at the [facility] Clinical Microbiology Laboratory using the [employer] Blood Culture ID Panel. This test is FDA cleared for in vitro diagn ostic use and has been verified and approved by the [facility] Clinical Microbiology laboratory for clinical use. Reference Range: Not DetectedU/S, CORE BIOPSY 2017-07-25 10:14:00Reason for exam:->firm L leg mass concerning for met. known lung cancer. it is palpable on surfaceFINAL REPORT PROCEDURE: Ultrasound-guided core biopsy of left [...] for hematoma. There were no immediate complications. IMPRESSION:Uncomplicated ultrasound-guided core biopsy of left thigh mass. Signed: Jimmy Lam Verified Date/Time: 07/25/2017 10:14:14 Reading Location: [facility] P006J Ultrasound Reading Room C METABOLIC [id number] 06:57:00* Test Item Value Reference Range Comments SODIUM (BEAKER) (test acfz=238) 136 meq/L 136-145 POTASSIUM (BEAKER) (test szvs=313) 3.9 meq/L 3.5-5.1 CHLORIDE (BEAKER) (test tiee=455) 99 meq/L 98-107 CO2 (BEAKER) (test ewcy=408) 28 meq/L 22-29 BLOOD UREA NITROGEN (BEAKER) (test hulu=223) 8 mg/dL 7-21 CREATININE (BEAKER) (test oyng=688) 0.68 mg/dL 0.57-1.25 GLUCOSE RANDOM (BEAKER) (test nmlz=162) 97 mg/dL 70-105 CALCIUM (BEAKER) (test kcay=714) 7.9 mg/dL 8.4-10.2 EGFR (BEAKER) (test xtei=6259) 117 mL/min/1.73 sq m ESTIMATED GFR IS NOT ACCURATE CREATININE CLEARANCE IN PREDICTING GLOMERULAR FILTRATION RATE. ESTIMATED GFR IS NOT APPLICABLE FOR DIALYSIS PATIENTS. CBC W/PLT COUNT & AUTO [id number] 06:46:00* Test Item Value Reference Range Comments WHITE BLOOD CELL COUNT (BEAKER) (test lxri=153) 10.2 K/ L 3.5-10.5 RED BLOOD CELL COUNT (BEAKER) (test rtyd=231) 3.88 M/ L 4.63-6.08 HEMOGLOBIN (BEAKER) (test feor=829) 8.9 GM/DL 13.7-17.5 HEMATOCRIT (BEAKER) (test qmee=837) 29.4 % 40.1-51.0 MEAN CORPUSCULAR VOLUME (BEAKER) (test wuho=256) 75.8 fL 79.0-92.2 MEAN CORPUSCULAR HEMOGLOBIN (BEAKER) (test ivnn=694) 22.9 pg 25.7-32.2 MEAN CORPUSCULAR HEMOGLOBIN CONC (BEAKER) (test days=533) 30.3 GM/DL 32.3-36.5 RED CELL DISTRIBUTION WIDTH (BEAKER) (test btwd=458) 19.2 % 11.6-14.4 PLATELET COUNT (BEAKER) (test fixn=972) 541 K/CU MM 150-450 MEAN PLATELET VOLUME (BEAKER) (test qcxx=097) 8.6 fL 9.4-12.4 NUCLEATED RED BLOOD CELLS (BEAKER) (test oczl=604) 0 /100 WBC 0-0 NEUTROPHILS RELATIVE PERCENT (BEAKER) (test eejc=589) 71 % LYMPHOCYTES RELATIVE PERCENT (BEAKER) (test gwug=110) 20 % MONOCYTES RELATIVE PERCENT (BEAKER) (test moss=623) 6 % EOSINOPHILS RELATIVE PERCENT (BEAKER) (test csdd=983) 2 % BASOPHILS RELATIVE PERCENT (BEAKER) (test joge=856) 1 % NEUTROPHILS ABSOLUTE COUNT (BEAKER) (test lqrv=614) 7.22 K/ L 1.78-5.38 LYMPHOCYTES ABSOLUTE COUNT (BEAKER) (test ipiy=836) 2.04 K/ L 1.32-3.57 MONOCYTES ABSOLUTE COUNT (BEAKER) (test evsn=504) 0.62 K/ L 0.30-0.82 EOSINOPHILS ABSOLUTE COUNT (BEAKER) (test yrdx=397) 0.24 K/ L 0.04-0.54 BASOPHILS ABSOLUTE COUNT (BEAKER) (test whbr=448) 0.05 K/ L 0.01-0.08 IMMATURE GRANULOCYTES-RELATIVE PERCENT (BEAKER) (test uapf=0094) 1 % 0-1 BLOOD [id number] 00:00:00* Test Item Value Reference Range Comments CULTURE (BEAKER) (test xzlu=4720) No growth in 5 days CBC W/PLT COUNT & AUTO [id number] 07:39:00* Test Item Value Reference Range Comments WHITE BLOOD CELL COUNT (BEAKER) (test qnmi=676) 8.4 K/ L 3.5-10.5 RED BLOOD CELL COUNT (BEAKER) (test mlym=494) 3.73 M/ L 4.63-6.08 HEMOGLOBIN (BEAKER) (test ofgd=085) 8.4 GM/DL 13.7-17.5 HEMATOCRIT (BEAKER) (test hpcf=827) 28.5 % 40.1-51.0 MEAN CORPUSCULAR VOLUME (BEAKER) (test mogc=182) 76.4 fL 79.0-92.2 MEAN CORPUSCULAR HEMOGLOBIN (BEAKER) (test ubcj=510) 22.5 pg 25.7-32.2 MEAN CORPUSCULAR HEMOGLOBIN CONC (BEAKER) (test cwre=471) 29.5 GM/DL 32.3-36.5 RED CELL DISTRIBUTION WIDTH (BEAKER) (test ogvq=719) 19.3 % 11.6-14.4 PLATELET COUNT (BEAKER) (test xfbp=107) 514 K/CU MM 150-450 MEAN PLATELET VOLUME (BEAKER) (test jnbt=856) 8.9 fL 9.4-12.4 NUCLEATED RED BLOOD CELLS (BEAKER) (test udfz=235) 0 /100 WBC 0-0 NEUTROPHILS RELATIVE PERCENT (BEAKER) (test uwrm=070) 72 % LYMPHOCYTES RELATIVE PERCENT (BEAKER) (test dqjd=495) 17 % MONOCYTES RELATIVE PERCENT (BEAKER) (test fwla=367) 6 % EOSINOPHILS RELATIVE PERCENT (BEAKER) (test krjo=572) 3 % BASOPHILS RELATIVE PERCENT (BEAKER) (test owuk=288) 1 % NEUTROPHILS ABSOLUTE COUNT (BEAKER) (test wvyy=633) 6.09 K/ L 1.78-5.38 LYMPHOCYTES ABSOLUTE COUNT (BEAKER) (test vwvg=668) 1.46 K/ L 1.32-3.57 MONOCYTES ABSOLUTE COUNT (BEAKER) (test qomu=762) 0.51 K/ L 0.30-0.82 EOSINOPHILS ABSOLUTE COUNT (BEAKER) (test wolb=203) 0.27 K/ L 0.04-0.54 BASOPHILS ABSOLUTE COUNT (BEAKER) (test tolr=239) 0.04 K/ L 0.01-0.08 IMMATURE GRANULOCYTES-RELATIVE PERCENT (BEAKER) (test hwbn=1079) 1 % 0-1 BASIC METABOLIC [id number] 06:59:00* Test Item Value Reference Range Comments SODIUM (BEAKER) (test kgnr=731) 137 meq/L 136-145 POTASSIUM (BEAKER) (test erzw=696) 3.7 meq/L 3.5-5.1 CHLORIDE (BEAKER) (test svcl=269) 100 meq/L 98-107 CO2 (BEAKER) (test ktes=057) 27 meq/L 22-29 BLOOD UREA NITROGEN (BEAKER) (test lkun=501) 8 mg/dL 7-21 CREATININE (BEAKER) (test mnkp=340) 0.66 mg/dL 0.57-1.25 GLUCOSE RANDOM (BEAKER) (test gipo=202) 98 mg/dL 70-105 CALCIUM (BEAKER) (test noip=213) 8.5 mg/dL 8.4-10.2 EGFR (BEAKER) (test fmiq=1465) 121 mL/min/1.73 sq m ESTIMATED GFR IS NOT ACCURATE CREATININE CLEARANCE IN PREDICTING GLOMERULAR FILTRATION RATE. ESTIMATED GFR IS NOT APPLICABLE FOR DIALYSIS PATIENTS. BRONCHIAL CULTURE + GRAM [id number] 09:00:00* Test Item Value Reference Range Comments CULTURE (BEAKER) (test bnnk=0598) 2+ Haemophilus influenzaeBeta-lactamase negative GRAM STAIN RESULT (BEAKER) (test bcac=8398) 1+ WBCs GRAM STAIN RESULT (BEAKER) (test pgpn=873557) <1+ gram positive cocci in chains and pairs 2+ Normal respiratory bethany presentMR, BRAIN, [id number] 23:58:00FINAL REPORT Exam: MRI brain with and without contrast Co mparison: No prior study for comparison. Reason for exam: lung cancer. for stag ing Discussion: Multiplanar multi sequential MR imaging of the brain was perform ed iff-fko-icfq IV gadolinium administration. There are multiple punctate FLAIR hyperintensities in the bilateral subcortical and periventricular white matter w ithout mass effect, nonspecific. There is no intracranial mass, mass effect, ext ra-axial collection, hydrocephalus or herniation. There is no restricted diffus ion to suggest an acute infarct. There is no abnormality on susceptibility seque nces to suggest hemorrhage or hemosiderin deposition. There is no abnormal enhan cement. The skull base flow-voids are seen in keeping with their patency. Ther e is moderate pansinus mucosal inflammatory disease. The visualized mastoid air cells are clear. The orbits, sella and parasellar regions are unremarkable. T here is asymmetric thickening of the right occipital condyle without abnormal si gnal or enhancement, which may be congenital or posttraumatic. Impressions: No evidence of intracranial metastases. Multiple punctate FLAIR white matter hyper intensities, nonspecific but may represent white matter microvascular ischemic c hange. Asymmetric thickening of the right occipital bone without abnormal signal or enhancement which may be congenital or posttraumatic. Noncontrast cervical s pine CT is recommended for further evaluation. Signed: Sagar Munoz Ve rified Date/Time: 07/22/2017 23:58:16 Reading Location: [place] [address]T [facility] al Reading Room Electronically signed by: SAGAR MUNOZ MD on 018 11:58 PM MISCELLANEOUS LAB [id number] 16:11:00* Test Item Value Reference Range Comments SCAN RESULT (test gguq=[id number]) Result comments: HAEMOPHILUS INFLUENZA DETECTED First line therapy: ceftriaxone meropenem if critically ill or history of an ESBL producing pathogen De-escalate based on susceptibilities Other organisms and resistance markers not contained in this PCR panel cannot be excluded and follow-up of traditional culture result s is required. This sample was tested at the [facility] Clinical Microbiology Labor atory using the [employer] Blood Culture ID Panel. This test is FDA clear ed for in vitro diagnostic use and has been verified and approved by the [facility] C linical Microbiology laboratory for clinical use. Reference Range: Not Detected RAD, CHEST, 1 VIEW, NON [id number] 15:56:00Reason for exam:->post picc line insertionShould this be performed at the bedside?->YesFINAL REPORT Chest one view AP 07/22/2017 3:55 [...] vasculature is not engorged. Signed: Elio Reagan Verified Date/Time: 07/22/2017 15:56:09 Reading Location: [facility] C013W Consult Reading Room AND/OR JOINT IMAGING, WHOLE BODY 2017-07-22 15:06:00FINAL REPORT PROCEDURE: BONE SCAN, WHOLE BODY CPT CODE: [id number] INDICATION: Non-small cell lung cancer staging PROTOCOL: 22.0 mCi of Tc-99m MDP was injected intravenously. Whole body and selected spot images were obtained approximately 3 hours later. FINDINGS: -Focal area of mildly increased uptake at the left 5th costochondral cartilage. -Moderate increase in activity in the left foot, predominantly of the ankle and first MTP joint.-Mild increase in tracer activity in the shoulders, wrists, knees, and right foot and ankle. IMPRESSION: 1.No evidence of osseous metastatic lesion.2.Left foot/ankle findings may be degenerative and/or inflammatory (gout) given patient's provided history.3.Degenerative changes of the spine and peripheral joints. Images for comparison/correlation were chest CT 07/20/2017. Abdomen and pelvis CT 07/21/2017. Signed: Parisa Berger MDReport Verified Date/Time: 07/22/2017 15:06:09 Reading Location: [address] Reading Room W/PLT COUNT & AUTO [id number] 06:09:00* Test Item Value Reference Range Comments WHITE BLOOD CELL COUNT (BEAKER) (test tnqb=224) 16.7 K/ L 3.5-10.5 RED BLOOD CELL COUNT (BEAKER) (test rimb=680) 3.99 M/ L 4.63-6.08 HEMOGLOBIN (BEAKER) (test gkql=806) 9.2 GM/DL 13.7-17.5 HEMATOCRIT (BEAKER) (test tffs=702) 30.3 % 40.1-51.0 MEAN CORPUSCULAR VOLUME (BEAKER) (test sapr=784) 75.9 fL 79.0-92.2 MEAN CORPUSCULAR HEMOGLOBIN (BEAKER) (test ethx=388) 23.1 pg 25.7-32.2 MEAN CORPUSCULAR HEMOGLOBIN CONC (BEAKER) (test ndnt=252) 30.4 GM/DL 32.3-36.5 RED CELL DISTRIBUTION WIDTH (BEAKER) (test odhj=527) 19.1 % 11.6-14.4 PLATELET COUNT (BEAKER) (test mkpj=033) 467 K/CU MM 150-450 MEAN PLATELET VOLUME (BEAKER) (test lxzh=262) 8.8 fL 9.4-12.4 NUCLEATED RED BLOOD CELLS (BEAKER) (test gohe=801) 0 /100 WBC 0-0 NEUTROPHILS RELATIVE PERCENT (BEAKER) (test mjpa=661) 77 % LYMPHOCYTES RELATIVE PERCENT (BEAKER) (test xwip=986) 15 % MONOCYTES RELATIVE PERCENT (BEAKER) (test maob=122) 5 % EOSINOPHILS RELATIVE PERCENT (BEAKER) (test hbfm=521) 1 % BASOPHILS RELATIVE PERCENT (BEAKER) (test mens=180) 0 % NEUTROPHILS ABSOLUTE COUNT (BEAKER) (test pwdj=421) 12.90 K/ L 1.78-5.38 LYMPHOCYTES ABSOLUTE COUNT (BEAKER) (test tofg=822) 2.45 K/ L 1.32-3.57 MONOCYTES ABSOLUTE COUNT (BEAKER) (test kjjr=367) 0.90 K/ L 0.30-0.82 EOSINOPHILS ABSOLUTE COUNT (BEAKER) (test qvig=345) 0.21 K/ L 0.04-0.54 BASOPHILS ABSOLUTE COUNT (BEAKER) (test fbwa=739) 0.06 K/ L 0.01-0.08 IMMATURE GRANULOCYTES-RELATIVE PERCENT (BEAKER) (test qufm=2622) 1 % 0-1 BASIC METABOLIC [id number] 06:04:00* Test Item Value Reference Range Comments SODIUM (BEAKER) (test hnco=388) 132 meq/L 136-145 POTASSIUM (BEAKER) (test scwe=342) 4.1 meq/L 3.5-5.1 CHLORIDE (BEAKER) (test yaqw=727) 100 meq/L 98-107 CO2 (BEAKER) (test vumk=531) 23 meq/L 22-29 BLOOD UREA NITROGEN (BEAKER) (test djkt=114) 8 mg/dL 7-21 CREATININE (BEAKER) (test gtrc=325) 0.77 mg/dL 0.57-1.25 GLUCOSE RANDOM (BEAKER) (test bpav=336) 91 mg/dL 70-105 CALCIUM (BEAKER) (test kqxr=980) 9.1 mg/dL 8.4-10.2 EGFR (BEAKER) (test qegh=6982) 101 mL/min/1.73 sq m ESTIMATED GFR IS NOT ACCURATE CREATININE CLEARANCE IN PREDICTING GLOMERULAR FILTRATION RATE. ESTIMATED GFR IS NOT APPLICABLE FOR DIALYSIS PATIENTS. CT, [id number] 04:37:00FINAL REPORT EXAM: CT of the abdomen and [...] infection cannot be excluded. Small right pleural effusion.LIVER: Hepatomegaly. No focal lesions.BILE DUCTS: Within normal limits.GALL BLADDER: Within normal limits.PANCREAS: Within normal limits.SPLEEN: Within normal limits.ADRENALS: Within normal limits.KI DNEYS/URETERS: 2.1 x 1.8 cm simple right lower pole cyst. Unremarkable left kidn ey. No hydronephrosis or radiopaque stones. URINARY BLADDER: Nearly collapsed w hich limits its evaluation. Mild hyperdensity within the urinary bladder which l ikely represents contrast.REPRODUCTIVE ORGANS: Within normal limits. BOWEL/MESEN BARBARA: Sigmoid diverticulosis without acute diverticulitis. Mild diffuse mesenter ic congestion, nonspecific. No bowel obstruction or abnormal wall thickening. No rmal appendix.PERITONEUM/RETROPERITONEUM: No free air, free fluid or fluid colle ction. VESSELS: Mild atherosclerotic calcifications of the aorta and branches. L YMPH NODES: No abdominal or pelvic lymphadenopathy.SOFT TISSUES: Small fat-conta ining left inguinal hernia. Moderate fat-containing right periumbilical hernia, with fatty stranding, which may represent edema/venous congestion.BONES: Multile kimberly degenerative changes of the visualized spine. No suspicious osseous lesions. IMPRESSION: No evidence of metastatic disease in the abdomen or pelvis. Lar ge hiatal hernia/intrathoracic stomach. Hepatomegaly. Small right renal cyst. Sm all right pleural effusion. Partially imaged lesion in the right lower lobe whic h may represent necrotic neoplasm however superimposed infection cannot be exclu ded. Please see separately dictated chest CT for details. Signed: Sagar Munoz MDReport Verified Date/Time: 07/22/2017 04:37:15 Reading Location: [facility] C013T Transitional Reading Room UE [id number] 12:56:00Surgical Pathology Report Case: [id number] Authorizing Provider: Marv Navarro MD Collected: 07/20/2017 0925 Ordering Location: [address] Received: 07/20/2017 1332 Service Pathologist: Jonnathan Schmitz MD Specimens: A) - Small Bowel, NOS, BX TO R/O INFILTRATED DESEASE B) - Antrum, ANTRUM AND BODY BX C) - Biopsy, Gastroes ophageal Junction, BX IRREGULAR Z LINE 32 CM D) - Polyp, Colon - Transverse, polyp taken w/ standard forcep E) - Colon Biopsy, Random, bx r/o microscopic colitis F) - Polyp, Colon - Rectosigmoid, POLYP TAKEN W / STANDARD FORCEP A. SMALL BOWEL, BIOPSY- NO DIAGNOSTIC ALTE RATIONB. 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 GASTROESOPHAGEAL JUNCTION, AT 32 CM, BIOPSY- CHRONIC CARDITIS- CHRONIC ESOPHAGITIS- FOCAL GOBLET CELL METAPLASIA- NEGATIVE FOR DYSPLASIA AND MALIGNANCY- POSITIVE FOR HELICOBACT ER ON WARTHIN-STARRY STAIND. COLON, TRANSVERSE, POLYPECTOMY- HYPERPLASTIC POLYPE . COLON, RANDOM, BIOPSY- NO DIAGNOSTIC ALTERATIONF. COLON, RECTOSIGMOID, POLY PECTOMY- HYPERPLASTIC POLYP Signing Pathologist Direct Phone Line: [phone]; [phone] [id number] anemia, rule out GI blood loss, rule out microscopic colit is and rule out infiltrative diseaseA. Small bowel biopsy. B. Antrum and body bi opsy. C. Gastroesophageal junction biopsy irregular Z-line 32 cm. D. Transverse colon polyp. E. Random colon biopsy. F. Rectosigmoid colon polypSpecimen is rece ived in six containers of formalin all labeled with the patient's information.Sp ecimen A: Labeled "small bowel biopsy" consists of two round fragments of beck ti ssue measuring 0.2 and 0.3 cm, submitted in A1.Specimen B: Labeled "antrum and body biopsy" consists of four round fragments of beck tissue ranging from 0.1 to 0.2 cm, submitted in B1.Specimen C: Labeled "gastroesophageal junction biopsy ir regular Z-line at 32 cm" consists of four fragments of beck tissue ranging from 0 .1 to 0.2 cm, submitted in C1.Specimen D: Labeled "transverse colon polyp" consi sts of two round fragments of beck tissue measuring 0.1 and 0.2 cm, submitted in D1.Specimen E: Labeled "random colon biopsy" consists of two fragments of beck ti ssue measuring 0.1 and 0.2 cm, submitted in E1.Specimen F: Labeled "rectosigmoid colon polyp" consists of three fragments of beck-white soft tissue ranging from 0.1 to 0.2 cm, submitted in F1. CG/ewPerformed.VANCOMYCIN LEVEL, TROUGH 2017-07-21 12:51:00* Test Item Value Reference Range Comments VANCOMYCIN TROUGH (BEAKER) (test lmsd=293) 9.6 ug/mL 10.0-20.0 URINE [id number] 12:37:00* Test Item Value Reference Range Comments CULTURE (BEAKER) (test ahph=9004) No growth FLOW CYTOMETRY [id number] 09:51:00* Test Item Value Reference Range Comments FLOW CYTOMETRY RESULT POINTER (BEAKER) (test jilw=7972) See Separate Report FLOW CYTOMETRY AP CASE # (BEAKER) (test orjw=2004) [id number] BASIC METABOLIC [id number] 06:02:00* Test Item Value Reference Range Comments SODIUM (BEAKER) (test zwov=742) 132 meq/L 136-145 POTASSIUM (BEAKER) (test vuco=298) 4.0 meq/L 3.5-5.1 CHLORIDE (BEAKER) (test sxlp=044) 101 meq/L 98-107 CO2 (BEAKER) (test vgdu=004) 21 meq/L 22-29 BLOOD UREA NITROGEN (BEAKER) (test cdgj=851) 7 mg/dL 7-21 CREATININE (BEAKER) (test ukev=136) 0.80 mg/dL 0.57-1.25 GLUCOSE RANDOM (BEAKER) (test tjvd=846) 107 mg/dL 70-105 CALCIUM (BEAKER) (test fkte=546) 8.6 mg/dL 8.4-10.2 EGFR (BEAKER) (test vixx=0944) 97 mL/min/1.73 sq m ESTIMATED GFR IS NOT ACCURATE CREATININE CLEARANCE IN PREDICTING GLOMERULAR FILTRATION RATE. ESTIMATED GFR IS NOT APPLICABLE FOR DIALYSIS PATIENTS. CBC W/PLT COUNT & AUTO [id number] 05:30:00* Test Item Value Reference Range Comments WHITE BLOOD CELL COUNT (BEAKER) (test tqml=229) 16.3 K/ L 3.5-10.5 RED BLOOD CELL COUNT (BEAKER) (test rbzh=123) 3.90 M/ L 4.63-6.08 HEMOGLOBIN (BEAKER) (test gwlm=943) 9.0 GM/DL 13.7-17.5 HEMATOCRIT (BEAKER) (test vpib=959) 30.0 % 40.1-51.0 MEAN CORPUSCULAR VOLUME (BEAKER) (test ojor=361) 76.9 fL 79.0-92.2 MEAN CORPUSCULAR HEMOGLOBIN (BEAKER) (test ksan=453) 23.1 pg 25.7-32.2 MEAN CORPUSCULAR HEMOGLOBIN CONC (BEAKER) (test cisc=083) 30.0 GM/DL 32.3-36.5 RED CELL DISTRIBUTION WIDTH (BEAKER) (test zmev=300) 19.1 % 11.6-14.4 PLATELET COUNT (BEAKER) (test annn=444) 384 K/CU MM 150-450 MEAN PLATELET VOLUME (BEAKER) (test enyy=779) 8.9 fL 9.4-12.4 NUCLEATED RED BLOOD CELLS (BEAKER) (test hpbt=367) 0 /100 WBC 0-0 NEUTROPHILS RELATIVE PERCENT (BEAKER) (test xskd=512) 76 % LYMPHOCYTES RELATIVE PERCENT (BEAKER) (test vtch=181) 15 % MONOCYTES RELATIVE PERCENT (BEAKER) (test crie=372) 6 % EOSINOPHILS RELATIVE PERCENT (BEAKER) (test yeux=452) 2 % BASOPHILS RELATIVE PERCENT (BEAKER) (test dcnr=625) 0 % NEUTROPHILS ABSOLUTE COUNT (BEAKER) (test xaru=606) 12.45 K/ L 1.78-5.38 LYMPHOCYTES ABSOLUTE COUNT (BEAKER) (test jumy=492) 2.36 K/ L 1.32-3.57 MONOCYTES ABSOLUTE COUNT (BEAKER) (test hfiu=375) 0.92 K/ L 0.30-0.82 EOSINOPHILS ABSOLUTE COUNT (BEAKER) (test xzys=398) 0.31 K/ L 0.04-0.54 BASOPHILS ABSOLUTE COUNT (BEAKER) (test fjrj=957) 0.05 K/ L 0.01-0.08 IMMATURE GRANULOCYTES-RELATIVE PERCENT (BEAKER) (test dhiy=1150) 1 % 0-1 TISSUE [id number] 18:51:00Surgical Pathology Report Case: [id number] Authorizing Provider: Grant Rasheed MD Collected: 07/19/2017 1339 Ordering Location: [facility] Received: 07/19/2017 1430 Pathologist: Nya Bowles MD Specimen: Lung, Right Lower Lobe, ENDOBRONCHIAL BIOPSY A. LUNG, RIGHT LOWER LOBE, ENDOBRONCHIAL BIOPSY: - EXTENSIVELY NECROTIC TUMOR CONSISTENT WITH SQUAMOUS CELL CARCINOMA (SEE MICROSCOPIC DESCRIPTION) Signing Pathologist Direct Phone Line: [phone] signed by Nya Bowles MD on 07/20/2017 at 6:[id number] scanRight lower lobe lung endobronchial biopsyReceived in formalin labeled "lung, right lower lobe", description "endobronchial biopsy" are multiple fragments measuring 1.2 x 1.0 x 0.1 cm in aggregate. Entirely submitted A1. DB/pl Section shows multiple fragments of predominantly necrotic tissue with degenerating atypical squamous cells. A few superficial strips of respiratory epithelium with subepithelial nests of viable tumor is seen consistent with squamous cell carcinoma.GMS and PAS stains are negative for fungal elements.CT, CHEST WITH IV CONTRAST- PE TEST [id number] 17:11:00Reason for exam:->sob, tachyFINAL REPORT HISTORY: Chest pain, acute, PE suspected, low pretest probsob, tachy COMPARISON : No prior chest CT is available for comparison. However, a chest x- ray dated 07/19/2017 is available for comparison Technique [...] areas of necrosis or infection. Several of the se locules also contain air. No thrombus is identified in the main pulmonary art eries or the major subsegmental branches. Of note, evaluation for thrombus in th e smaller subsegmental branches is limited secondary to the inherent technique o f the examination. Impression: 1. No pulmonary embolism identified. 2. Large mas slike lesion occupying the right lower lobe with cystic/fluid attenuation foci a nd air. This could represent a large neoplasm with necrosis or superimposed infe ction. Pneumonitis with areas of abscess formation/necrosis is also in the diffe rential. 3. Multiple enlarged mediastinal lymph nodes. 4. Large sized hiatal her alessandra/intrathoracic stomach. Signed: Sundeep Monroy MDReport Verified Date/Time: 17:11:25 Reading Location: [facility] B1 C013Y CT Body Reading Room Elec tronically signed by: SUNDEEP MONROY M.D. on 07/20/2017 05:11 PM FINE NEEDLE ASPIRATE BY [id number] 17:04:00Medical Cytology Report Case: [id number] Authorizing Provider: Grant Rasheed MD Collected: 07/19/2017 1250 Ordering Location: [facility] Received: 07/19/2017 1356 Pathologist: Juani Santiago MD Specimen: Lymph Node, Subcarinal, Station 7 LYMPH NODE, SUBCARINAL, STATION 7 EBUS FNA BY CLINICIAN (DIRECT SMEARS AND CELL BLOCK OF ASPIRATE): - METASTATIC SQUAMOUS CELL CARCINOMA (SEE COMMENT) Signing Pathologist Direct Phone Line: [phone] signed by Juani Santiago MD on 07/20/2017 at 5:04 PM Please see cases [id number] and [id number] for additional information.[id number], [id number], [id number] lower lobe lung mass with mediastinal adenopathyLYMPH NODE, SUBCARINAL, STATION 7 EBUS FNA20 mls in cytorich red; 2 direct smear slides, cell blockCollected: [id number]: [id number] FEW CELLS, SOME VERY ATYPICAL - MORE REQUESTED (1:07PM, )[facility], Department of Pathology, [address] [place] [address], [facility], [facility] of Pathology, [address] [place] [address], TSVD NEEDLE ASPIRATE BY [id number] 17:03:00Medical Cytology Report Case: [id number] Authorizing Provider: Grant Rasheed MD Collected: 07/19/2017 1300 Ordering Location: [facility] Received: 07/19/2017 1400 Pathologist: Juani Santiago MD Specimen: Lung, Right Lower Lobe, Routine cyto in CRR RIGHT LOWER LOBE LUNG FNA BY CLINICIAN (CYTOSPINS AND CELL BLOCK OF ASPIRATE): - SQUAMOUS CELL CARCINOMA (SEE COMMENT) Signing Pathologist Direct Phone Line: [phone] signed by Juani Santiago MD on 07/20/2017 at 5:03 PMPlease see cases [id number], [id number] lower lobe lung mass with mediastinal adenopathyRIGHT LOWER L OBE LUNG FNA25 mls in cytorich red; 4 cytospins, cell blockCollected: [id number] ived: [id number] cytospins and the cellblock show squamous cell carcinoma, modera tely differentiated with keratinization and associated with necrosis.[facility], Department of Pathology, [address] [place] [address], [facility], [facility] of [facility]olog y, [address] [place] [address], [facility] CYTOMETRY 2017-07-20 16:13:00Flow Cytometry Report Case: [id number] Authorizing Provider: Gilbert Burris MD Collected: 07/19/2017 1253 Ordering Location: [facility] Received: 07/20/2017 1028 Pathologist: Josue Elliott MD Specimen: Other SUBCARINAL LYMPH NODE STATION 7, FLOW CYTOMETRY:NO MONOCLONAL B CELL POPULATION.NO ABERRANT T CELL POPULATION.LYMPHOID EVENTS ARE SCARCE AND STUDY IS LIMITED.CORRELATION WITH MORPHOLOGIC FINDINGS REQUIRED. [id number]A LYMPH NODE STATION 7CD8, surface-kappa, CD56, surface-lambda, CD5, CD19, CD10, CD3, CD20, CD4, DT63Tgxknrqa Viability: 76.4% Blasts: A significant blast population is not identified. Lymphocytes: Bright CD45+ [...] represent nonviable cells, non-hematolymphoid cells, and/or debris. These tests were developed and their performance characteristics determined by [facility]. They have not been cleared or approved by the U.S. Food and Drug Administration. The FDA has determined that such clearance or approval is not necessary. It should not be regarded as investigational or for research. This laboratory is certified under the Clinical Laboratory Improvement Amendments of 1988 ("CLIA") as qualified to perform high-complexity clinical testing.CBC W/PLT COUNT & AUTO [id number] 14:47:00* Test Item Value Reference Range Comments WHITE BLOOD CELL COUNT (BEAKER) (test vnzt=536) 14.1 K/ L 3.5-10.5 RED BLOOD CELL COUNT (BEAKER) (test tpgm=732) 4.21 M/ L 4.63-6.08 HEMOGLOBIN (BEAKER) (test flol=964) 9.9 GM/DL 13.7-17.5 HEMATOCRIT (BEAKER) (test xvrv=421) 32.9 % 40.1-51.0 MEAN CORPUSCULAR VOLUME (BEAKER) (test hroa=247) 78.1 fL 79.0-92.2 MEAN CORPUSCULAR HEMOGLOBIN (BEAKER) (test ufrd=628) 23.5 pg 25.7-32.2 MEAN CORPUSCULAR HEMOGLOBIN CONC (BEAKER) (test oclb=112) 30.1 GM/DL 32.3-36.5 RED CELL DISTRIBUTION WIDTH (BEAKER) (test jgii=667) 18.8 % 11.6-14.4 PLATELET COUNT (BEAKER) (test fmqx=909) 324 K/CU MM 150-450 MEAN PLATELET VOLUME (BEAKER) (test bbbb=401) 9.1 fL 9.4-12.4 NUCLEATED RED BLOOD CELLS (BEAKER) (test lmfl=414) 0 /100 WBC 0-0 SPIN/CONCENTRATION [id number] 14:16:00* Test Item Value Reference Range Comments CONCENTRATION CHARGED (BEAKER) (test rfkr=7654) Done B-TYPE NATRIURETIC FACTOR (BNP)2017-07-20 13:52:00* Test Item Value Reference Range Comments B-TYPE NATRIURETIC PEPTIDE (BEAKER) (test lrgs=668) 92 pg/mL 0-100 BASIC METABOLIC [id number] 13:45:00* Test Item Value Reference Range Comments SODIUM (BEAKER) (test geby=609) 138 meq/L 136-145 POTASSIUM (BEAKER) (test teva=029) 4.0 meq/L 3.5-5.1 CHLORIDE (BEAKER) (test zooq=352) 108 meq/L 98-107 CO2 (BEAKER) (test aqoi=462) 22 meq/L 22-29 BLOOD UREA NITROGEN (BEAKER) (test svpr=811) 11 mg/dL 7-21 CREATININE (BEAKER) (test xkrq=114) 0.74 mg/dL 0.57-1.25 GLUCOSE RANDOM (BEAKER) (test skmv=116) 105 mg/dL 70-105 CALCIUM (BEAKER) (test lelw=008) 9.3 mg/dL 8.4-10.2 EGFR (BEAKER) (test hfxz=1065) 106 mL/min/1.73 sq m ESTIMATED GFR IS NOT ACCURATE CREATININE CLEARANCE IN PREDICTING GLOMERULAR FILTRATION RATE. ESTIMATED GFR IS NOT APPLICABLE FOR DIALYSIS PATIENTS. URINALYSIS W/ [id number] 23:10:00* Test Item Value Reference Range Comments COLOR (BEAKER) (test eupj=246) Yellow CLARITY (BEAKER) (test xakp=109) Hazy SPECIFIC GRAVITY UA (BEAKER) (test qpqs=117) 1.020 1.001-1.035 PH UA (BEAKER) (test sbvr=369) 5.5 5.0-8.0 PROTEIN UA (BEAKER) (test sgcr=187) 70 mg/dL Negative GLUCOSE UA (BEAKER) (test vmyn=593) Negative Negative KETONES UA (BEAKER) (test lebh=772) Negative Negative BILIRUBIN UA (BEAKER) (test javz=696) Negative Negative BLOOD UA (BEAKER) (test pgjx=278) Negative Negative NITRITE UA (BEAKER) (test ewdx=960) Negative Negative LEUKOCYTE ESTERASE UA (BEAKER) (test husz=040) Negative Negative UROBILINOGEN UA (BEAKER) (test nshn=572) 4.0 mg/dL 0.2-1.0 RBC UA (BEAKER) (test fwdq=988) 1 /HPF WBC UA (BEAKER) (test xkyr=233) 1 /HPF MUCUS (BEAKER) (test obgm=7328) Moderate SQUAMOUS EPITHELIAL (BEAKER) (test bmpw=526) < /HPF CASTS (BEAKER) (test kpeu=0915) 7 /LPF SOURCE(BEAKER) (test ijqs=4915) RAD, CHEST, 1 VIEW, NON [id number] 21:49:00Reason for exam:->bronchFINAL REPORT Chest one view. Clinical history: bronch Co mparison: None. Technique: A single frontal view of the chest was obtained. Fin dings: The cardiac silhouette is mildly enlarged. The aorta is atherosclerotic. There is an opacity along the right heart border which may represent partial ate lectasis and/or pneumonia. There is a small right pleural effusion. There is a r etrocardiac opacity with lucency which may represent a hiatal hernia. There are degenerative changes of the visualized spine. IMPRESSION:Right basilar opacity, which may represent partial atelectasis and/or pneumonia; an obstructing endobro nchial lesion or mucous plugging cannot be excluded. Small right pleural effusio n.Hiatal hernia. Signed: Sagar Munozeport Verified Date/Time: 018 21:49:38 Reading Location: [address] Transitional Reading Room Electro nically signed by: SAGAR MUNOZ MD on 07/19/2017 09:49 PM POCT-LACTIC ACID, [id number] 18:35:00* Test Item Value Reference Range Comments POC-LACTIC ACID, VENOUS (BEAKER) (test hmve=7789) 1.3 mmol/L 0.9-1.[address] [facility] [address] [facility] [address] HEMOGLOBIN AND [id number] 16:08:00* Test Item Value Reference Range Comments HEMOGLOBIN (BEAKER) (test jntf=662) 7.9 GM/DL 13.7-17.5 HEMATOCRIT (BEAKER) (test lybv=676) 26.8 % 40.1-51.0 EBUS FNA [id number] 16:01:00* Test Item Value Reference Range Comments CYTOLOGY RESULT POINTER (BEAKER) (test voro=1199) See Separate Report EBUS FNA [id number] 15:00:00* Test Item Value Reference Range Comments CYTOLOGY RESULT POINTER (BEAKER) (test rayz=4780) See Separate Report BASIC METABOLIC [id number] 12:28:00* Test Item Value Reference Range Comments SODIUM (BEAKER) (test rbis=281) 136 meq/L 136-145 POTASSIUM (BEAKER) (test tbww=988) 4.3 meq/L 3.5-5.1 CHLORIDE (BEAKER) (test gzmt=605) 104 meq/L 98-107 CO2 (BEAKER) (test mluy=542) 23 meq/L 22-29 BLOOD UREA NITROGEN (BEAKER) (test xtom=676) 12 mg/dL 7-21 CREATININE (BEAKER) (test ngnm=891) 0.81 mg/dL 0.57-1.25 GLUCOSE RANDOM (BEAKER) (test clru=983) 94 mg/dL 70-105 CALCIUM (BEAKER) (test zwnk=128) 8.9 mg/dL 8.4-10.2 EGFR (BEAKER) (test xoig=7504) 95 mL/min/1.73 sq m ESTIMATED GFR IS NOT ACCURATE CREATININE CLEARANCE IN PREDICTING GLOMERULAR FILTRATION RATE. ESTIMATED GFR IS NOT APPLICABLE FOR DIALYSIS PATIENTS. CBC (HEMOGRAM ONLY)2017-07-19 12:20:00* Test Item Value Reference Range Comments WHITE BLOOD CELL COUNT (BEAKER) (test wzkp=169) 12.8 K/ L 3.5-10.5 RED BLOOD CELL COUNT (BEAKER) (test dcaf=344) 3.50 M/ L 4.63-6.08 HEMOGLOBIN (BEAKER) (test huhm=185) 7.9 GM/DL 13.7-17.5 HEMATOCRIT (BEAKER) (test drsn=693) 26.2 % 40.1-51.0 MEAN CORPUSCULAR VOLUME (BEAKER) (test jtgm=764) 74.9 fL 79.0-92.2 MEAN CORPUSCULAR HEMOGLOBIN (BEAKER) (test xxlh=242) 22.6 pg 25.7-32.2 MEAN CORPUSCULAR HEMOGLOBIN CONC (BEAKER) (test wcop=418) 30.2 GM/DL 32.3-36.5 RED CELL DISTRIBUTION WIDTH (BEAKER) (test fubx=127) 19.1 % 11.6-14.4 PLATELET COUNT (BEAKER) (test qzfm=163) 299 K/CU MM 150-450 MEAN PLATELET VOLUME (BEAKER) (test vvpy=073) 8.9 fL 9.4-12.4 NUCLEATED RED BLOOD CELLS (BEAKER) (test qwvo=517) 0 /100 WBC 0-0
[2018-05-03] MEDS ORDERED: SODIUM CHLORIDE 0.9% 1000ML 1,000 ML IV ONE (21:30)
[2018-05-03] MEDS ORDERED: ENOXAPARIN SODIUM INJ 100 MG/ML SYR SC ONE (21:30)
[2018-05-03] MEDS ORDERED: SENNOSIDES8.6 MG PO (21:34)
[2018-05-03] MEDS ORDERED: AUGMENTIN 875-1 EACH PO (21:34)
[2018-05-03] MEDS ORDERED: ALLOPURINOL300 MG PO (21:34)
[2018-05-03 21:53] LABS: BASOPHILS % 0.3 % (0.0-1.0); EOSINOPHILS # (AUTO) 0.3 (0.0-0.4); EOSINOPHILS % 3.7 % (0.0-6.0); HEMATOCRIT 35.6 % (38.2-49.6); HEMOGLOBIN 11.6 g/dL (14.0-18.0); LYMPHOCYTES # (AUTO) 1.4 (1.0-3.2); LYMPHOCYTES % 19.7 % (18.0-39.1); MEAN CORPUSCULAR HEMOGLOBIN 30.1 pg (28-32); MEAN CORPUSCULAR HGB CONC 32.6 g/dL (31-35); MEAN CORPUSCULAR VOLUME 92.5 fL (81-99); MONOCYTES # (AUTO) 0.7 (0.2-0.8); MONOCYTES % 9.2 % (4.4-11.3); NEUTROPHILS # (AUTO) 4.7 (2.1-6.9); NEUTROPHILS % 66.8 % (38.7-80.0); PLATELET COUNT 323 x10e3/uL (140-360); RED BLOOD COUNT 3.85 x10e6/uL (4.3-5.7)
--- NOTE | 2018-05-03 22:03 | Diagnostic Imaging Report ---
EXAMINATION: CHEST SINGLE (PORTABLE) INDICATION: ^sob ^[id number] ^5 ^Y COMPARISON: None FINDINGS: AP view TUBES and LINES: Right chest wall port in place with tip overlying SVC. LUNGS and PLEURA: Lungs are well inflated. Central vascular congestion. Moderate size right pleural effusion. HEART AND MEDIASTINUM: The cardiomediastinal silhouette is enlarged. BONES AND SOFT TISSUES: No acute osseous lesion. Soft tissues are unremarkable. UPPER ABDOMEN: No free air under the diaphragm. IMPRESSION: Markedly enlarged cardiomediastinal silhouette with central vascular congestion and moderate size right pleural effusion. Underlying pneumonia/atelectasis cannot be excluded. Signed by: Dr. Sharad Reddy MD on 05/03/2018 10:00 PM
[2018-05-03 22:05] LABS: INR 0.81
[2018-05-03 22:06] LABS: PARTIAL THROMBOPLASTIN TIME 33.6 seconds (23.8-35.5)
[2018-05-03 22:12] LABS: ALANINE AMINOTRANSFERASE 20 IU/L (0-55); ALBUMIN 3.3 g/dL (3.5-5.0); ALKALINE PHOSPHATASE 113 IU/L (40-150); BLOOD UREA NITROGEN 18 mg/dL (7-26); BUN/CREATININE RATIO 19 (6-25); CALCIUM 9.9 mg/dL (8.4-10.2); CARBON DIOXIDE 22 mmol/L (22-29); CHLORIDE 102 mmol/L (98-107); CREATINE KINASE 49 IU/L (30-200); CREATININE, SERUM 0.93 mg/dL (0.72-1.25); EST GLOMERULAR FILTRATION RATE > 60 ML/MIN (60-); GLUCOSE 141 mg/dL (74-118); SODIUM 137 mmol/L (136-145)
[2018-05-03] MEDS ORDERED: ONDANSETRON HCL INJ 2MG/ML 2ML 2 MG/ML VIAL IV PRN (22:45)
[2018-05-03] MEDS ORDERED: SODIUM CHLORIDE FLUSH 10 ML SYR INJ PRN (22:45)
--- OUTSIDE RECORDS SUMMARY | 2018-05-03 22:58 | XMS REPORT | Clinical Summary ---
Author Author AMIE [facility] Address Unknown Phone Unavailable Care Team Providers Care Repairing Calibrator Name Role Phone Sharpless PCP Allergies No [...] PM CDT) Narrative Performed At FINAL REPORT [facility] ([place], [place]) Right internal jugular chest port insertion History: Lung cancer. Modality: Sonography and fluoroscopy. Sedation: No sedation was administered. Local anesthesia was achieved with lidocaine 1%. Watcher Lookout Tower:Claude Hameed MD Disability Services Coordinator:Marquez Pendleton Approach: Right internal jugular vein Estimated [...] needle into the right atrium. A 4 Hong Konger micropuncture sheath was placed. A subcutaneous tunnel [...] MD Report Verified Date/Time:08/22/2017 17:17:05 Reading Location: [place] [id number] Angio Body Reading Room Procedure Note Interface, External Ris In - 08/22/2017 5:19 PM CDT FINAL REPORT Right internal jugular chest port insertion History: Lung cancer. Modality: Sonography and fluoroscopy. Sedation: No sedation was administered. Local anesthesia was achieved with lidocaine 1%. Watcher Lookout Tower: Claude Hameed MD Disability Services Coordinator: Marquez Pendleton Approach: Right internal jugular vein [...] needle into the right atrium. A 4 Hong Konger micropuncture sheath was placed. A subcutaneous tunnel [...] use. Signed: Claude Hameed MD Report Verified Date/Time: 08/22/2017 17:17:05 Reading Location: [facility] B1 P048 Angio Body Reading Room Performing Organization Address [facility] Phone Number GE [facility] * aPTT (08/22/2017 11:37 AM CDT) PTT 27.8 22.5 - 36.0 seconds [facility] Specimen Blood Performing Organization Address [facility] Phone Number [place] [phone] * Prothrombin time/INR (08/22/2017 11:37 AM CDT) Protime 13.2 11.7 - 14.7 seconds [facility] INR 1.0 <=5.9 [facility] Specimen Blood Narrative Performed At RECOMMENDED COUMADIN/WARFARIN INR THERAPY RANGES [facility] STANDARD DOSE: 2.0 - 3.0 Includes: PROPHYLAXIS for venous thrombosis, [facility] systemic embolization; TREATMENT for venous thrombosis and/or pulmonary embolus. HIGH RISK: Target INR is 2.5-3.5 for patients with mechanical heart valves. Performing Organization Address [facility]/[place], [place] [facility] [address] [phone] [place] [address] * Platelet count (08/22/2017 11:37 AM CDT) Platelets 246 150 - 450 K/CU MM [facility] Specimen Blood Performing Organization Address City/[facility]/[employer] Phone Number [facility] [address] [address] MEDICAL CENTER * RHYTHM STRIP - SCAN (07/26/2017 1:30 PM CDT) Narrative Performed At * Tissue Exam (07/25/2017 3:53 PM CDT) Only the most recent of 3 results within the time period is included. Case Report Surgical Pathology [facility] Report [facility] Case: [id number] Authorizing Provider:Grant Rasheed MDCollecte d: 07/25/2017 1553 Ordering Location: [address] Received: 07/25/2017 1552 Service Pathologist: Josue Elliott MD Specimen:Leg, Left DIAGNOSIS PART A LEFT LEG MASS, BIOPSY: [facility] INVASIVE CARCINOMA WITH [facility] SQUAMOUS DIFFERENTIATION. Signing Pathologist Direct Phone Line: [phone] COMMENT Immunohistochemical studies [facility] performed on block A1 [facility] demonstrate the neoplastic cells to be positive for p40. They are negative for CK7 and CK20. CPT Code(s) 81409, 65917, 62072 [facility] CLINICAL HISTORY Left leg mass concerning for [facility] mets, known lung cancer [facility] SPECIMEN SOURCE Left leg mass biopsy [facility] GROSS DESCRIPTION The specimen is received in a [facility] formalin-filled container and [facility] labeled with the patient's information and labeled "left leg mass biopsy" and consists of three off white core biopsies ranging in length from 1 to 1.7 cm, submitted A1. CG/pl SPECIAL STUDIES The following special studies [facility] were performed on this case [facility] and the interpretation is incorporated in the diagnostic report above: BLOCK A1- P40, CK7, CK20 The immunohistochemistry test was developed and its performance characteristics determined by [facility], Pathology Laboratory. It has not been [...] Left Performing Organization Address City/State/Zipcode Phone Number [facility] [address] [place] [address] [facility] * US Core Biopsy (07/25/2017 10:01 AM CDT) Narrative Performed At FINAL REPORT [facility] ([place], [place]) PROCEDURE: Ultrasound-guided core biopsy of left thigh [...] MD Report Verified Date/Time:07/25/2017 10:14:14 Reading Location: [facility] P006J Ultrasound Reading Room Procedure Note Interface, [...] Report Verified Date/Time: 07/25/2017 10:14:14 Reading Location: [facility] P006J Ultrasound Reading Room Performing Organization Address City/State/Zipcode Phone Number GE [facility] * CBC with platelet count + automated diff (07/25/2017 5:43 AM CDT) Only the most recent of 5 results within the time period is included. WBC 10.2 3.5 - 10.5 K/L [facility] RBC 3.88 (L) 4.63 - 6.08 M/L [facility] Hemoglobin 8.9 (L) 13.7 - 17.5 GM/DL [facility] Hematocrit 29.4 (L) 40.1 - 51.0 % [facility] MCV 75.8 (L) 79.0 - 92.2 fL [facility] MCH 22.9 (L) 25.7 - 32.2 pg [facility] MCHC 30.3 (L) 32.3 - 36.5 GM/DL [facility] RDW 19.2 (H) 11.6 - 14.4 % [facility] Platelets 541 (H) 150 - 450 K/CU MM [facility] MPV 8.6 (L) 9.4 - 12.4 fL [facility] nRBC 0 0 - 0 /100 WBC [facility] % Neutros 71 % [facility] % Lymphs 20 % [facility] % Monos 6 % [facility] % Eos 2 % [facility] % Baso 1 % [facility] # Neutros 7.22 (H) 1.78 - 5.38 K/L [facility] # Lymphs 2.04 1.32 - 3.57 K/L [facility] # Monos 0.62 0.30 - 0.82 K/L [facility] # Eos 0.24 0.04 - 0.54 K/L [facility] # Baso 0.05 0.01 - 0.08 K/L [facility] Immature 1 0 - 1 % [facility] Granulocytes-[facility] Specimen Blood Performing Organization Address City/State/Zipcode Phone Number [facility] [address] [place] [address] MEDICAL CENTER * Basic Metabolic Panel (07/25/2017 5:43 AM CDT) Only the most recent of 6 results within the time period is included. Sodium 136 136 - 145 meq/L [facility] Potassium 3.9 3.5 - 5.1 meq/L [facility] Chloride 99 98 - 107 meq/L [facility] CO2 28 22 - 29 meq/L [facility] BUN 8 7 - 21 mg/dL [facility] Creatinine 0.68 0.57 - 1.25 mg/dL [facility] Glucose 97 70 - 105 mg/dL [facility] Calcium 7.9 (L) 8.4 - 10.2 mg/dL [facility] EGFR 117Comment: ESTIMATED GFR IS mL/min/1.73 sq m [facility] NOT ACCURATE CREATININE [facility] CLEARANCE IN PREDICTING GLOMERULAR FILTRATION RATE. ESTIMATED GFR IS NOT APPLICABLE FOR DIALYSIS PATIENTS. Specimen Blood Performing Organization Address City/State/Zipcode Phone Number [facility] [address] [place] [address] [facility] * Blood culture (07/23/2017 6:07 AM CDT) Only the most recent of 4 results within the time period is included. Result No growth in 5 days [facility] Specimen Blood - Central Venous Line Performing Organization Address City/State/Zipcode Phone Number [facility] [address] [place] [address] [facility] * MR brain without & with IV contrast (07/22/2017 10:11 PM CDT) Narrative Performed At FINAL REPORT Bringrr [facility] Exam: MRI brain with and without contrast Comparison:No prior study for comparison. Reason for exam: lung cancer. for staging Discussion: Multiplanar multi sequential MR imaging of the brain was performed [id number] IV gadolinium administration. There are multiple punctate [...] MD Report Verified Date/Time:07/22/2017 23:58:16 Reading Location: [address] Reading Room Procedure Note Interface, External Ris In - 07/23/2017 12:00 AM CDT FINAL REPORT Exam: MRI brain with and without contrast Comparison: No prior study for comparison. Reason for exam: lung cancer. for staging Discussion: Multiplanar multi sequential MR imaging of the brain was performed [id number] IV gadolinium administration. There are multiple punctate [...] Report Verified Date/Time: 07/22/2017 23:58:16 Reading Location: [address] Transitional Reading Room Performing Organization Address City/State/Zipcode Phone Number [employer] (acquired by [employer] in 2014) * TRANSFUSION SERVICE REPORT - SCAN (07/22/2017 5:42 PM CDT) Only the most recent of 3 results within the time period is included. Narrative Performed At * XR chest 1 view portable / bedside (07/22/2017 3:48 PM CDT) Only the most recent of 2 results within the time period is included. Narrative Performed At FINAL REPORT [employer] (acquired by [employer] in 2014) Chest one view AP 07/22/2017 3:55 PM [...] MD Report Verified Date/Time:07/22/2017 15:56:09 Reading Location: [facility] C013 Consult Reading Room Procedure Note Interface, [...] Report Verified Date/Time: 07/22/2017 15:56:09 Reading Location: [facility] C013 Consult Reading Room Performing Organization Address City/State/Zipcode Phone Number [facility] ([place], [place]) * NM bone scan whole body (07/22/2017 1:53 PM CDT) Narrative Performed At FINAL REPORT [email or web address] PROCEDURE: BONE SCAN, WHOLE BODY CPT CODE:86326 INDICATION:Non-small cell lung cancer staging PROTOCOL:22.0 mCi [...] MD Report Verified Date/Time:07/22/2017 15:06:09 Reading Location: [address] [facility] Med Reading Room Procedure Note Interface, External Ris In - 07/22/2017 3:08 PM CDT FINAL REPORT PROCEDURE: BONE SCAN, WHOLE BODY CPT CODE: 38215 INDICATION: Non-small cell lung cancer staging PROTOCOL: [...] Report Verified Date/Time: 07/22/2017 15:06:09 Reading Location: [address] Med Reading Room Performing Organization Address [facility] Phone Number GE [facility] * Prepare Leuko-Red RBC (07/21/2017 11:54 PM CDT) CROSSMATCH COMPATIBLE SAFETRACE TX Unit ABO O Pos SAFETRACE TX UNIT NUMBER [id number] SAFETRACE TX Status TRANSFUSED SAFETRACE TX Blood Bank Product RED BLOOD CELLS SAFETRACE TX PRODUCT CODE [id number] SAFETRACE TX CROSSMATCH COMPATIBLE SAFETRACE TX Unit ABO O Pos SAFETRACE TX UNIT NUMBER [id number] SAFETRACE TX Status TRANSFUSED SAFETRACE TX Blood Bank Product RED BLOOD CELLS SAFETRACE TX PRODUCT CODE [id number] SAFETRACE TX Specimen Other Performing Organization Address [facility] Phone Number SAFETRACE [place] * CT abdomen/pelvis with IV contrast (07/21/2017 10:35 PM CDT) Narrative Performed At FINAL REPORT Bringrr [facility] EXAM: [...] MD Report Verified Date/Time:07/22/2017 04:37:15 Reading Location: [address] Transitional Reading Room Procedure Note Interface, [...] Report Verified Date/Time: 07/22/2017 04:37:15 Reading Location: [facility] B1 C013T Transitional Reading Room Performing Organization Address City/State/Zipcode Phone Number [email or web address] * Vancomycin level, trough (07/21/2017 12:21 PM CDT) Vancomycin Tr 9.6 (L) 10.0 - 20.0 ug/mL [facility] Specimen Blood - Arm, Right Performing Organization Address City/State/Zipcode Phone Number [facility] [address] [place] [address] MEDICAL CENTER * CT chest for pulmonary embolus (07/20/2017 4:48 PM CDT) Narrative Performed At FINAL REPORT [email or web address] HISTORY: Chest pain, acute, PE suspected, low [...] MD Report Verified Date/Time:07/20/2017 17:11:25 Reading Location: [facility] C013Y CT Body Reading Room Procedure Note [...] Report Verified Date/Time: 07/20/2017 17:11:25 Reading Location: [facility] C013Y CT Body Reading Room Performing Organization Address City/State/Zipcode Phone Number GE [facility] * Manual Differential (07/20/2017 1:19 PM CDT) % Neutros 86 % [facility] % Lymphs 9 % [facility] % Monos 4 % [facility] % Bands 1 0 - 10 % [facility] # Neutros 12.13 (H) 1.78 - 5.38 K/ul [facility] # Lymphs 1.27 (L) 1.32 - 3.57 K/ul [facility] # Monos 0.56 0.30 - 0.82 K/uL [facility] # Bands 0.14 0.00 - 0.80 K/uL [facility] Total Counted 100 [facility] Platelet Morphology Normal [facility] Toxic Granulation Present [facility] Anisocytosis 1+ few [facility] Microcytes 1+ few [facility] Poikilocytes 1+ few [facility] Artifact Present [facility] Platelet Conc Adequate [facility] Specimen Blood - Arm, Right Narrative Performed At Received comment: [facility] User comments: [facility] Slide comments: Performing Organization Address City/State/Zipcode Phone Number [facility] [address] [place] [address] [facility] * B-type Natriuretic Factor (BNP) (07/20/2017 1:19 PM CDT) BNP 92 0 - 100 pg/mL [facility] Specimen Blood - Arm, Right Performing Organization Address [facility]/Zipcode Phone Number [facility] [address] [place] [address] [phone] [address] * REPORT OF PROCEDURE - ENDOSCOPY URL (07/20/2017 10:46 AM CDT) Narrative Performed At * REPORT OF PROCEDURE - ENDOSCOPY URL (07/20/2017 9:53 AM CDT) Narrative Performed At * Transfuse Leuko-Red RBC (07/20/2017 8:05 AM CDT) Only the most recent of 3 results within the time period is included. * Transfusion Reaction Investigation (07/20/2017 7:19 AM CDT) TRANSFUSION RX SEE COMMENT [facility] INVESTIGATION(BEAKER) [facility] Specimen Blood Narrative Performed At Symptoms most likely due to underlying disease: The patient had a decrease in O2 [facility] saturation from 96% to 92% after transfusion of RBCs. No other changes in vital [facility] MED[facility] signs noted. Blood bank work-up was negative for evidence of immune mediated [facility]ENTER hemolysis or clerical error. Patient has a new diagnosis of lung cancer, normal BNP and O2 saturations prior to transfusion which were also decreased. Symptoms were most likely related to the patient's underlying disease and only temporally associated with transfusion. Electronic Signature: Akiko Johnson M.D. Performing Organization Address [facility]/Zipcode Phone Number [facility] [address] [place] [address] [facility] * Urine culture (07/19/2017 10:50 PM CDT) Result No growth [facility] Specimen Urine - Urine, Voided Performing Organization Address City/[facility]/Zipcode Phone Number [facility] [address] [place] [phone] [facility] * Urinalysis w/Microscopic (07/19/2017 10:38 PM CDT) Color, UA Yellow [facility] Clarity, UA Hazy [facility] Specific [place], UA 1.020 1.001 - 1.035 [facility] pH, UA 5.5 5.0 - 8.0 [facility] Protein, UA 70 mg/dL (A) Negative [facility] Glucose, UA Negative Negative [facility] Ketones, UA Negative Negative [facility] Bilirubin, UA Negative Negative [facility] Blood, UA Negative Negative [facility] Nitrite, UA Negative Negative [facility] Leukocytes, UA Negative Negative [facility] Urobilinogen, UA 4.0 (H) 0.2 - 1.0 mg/dL [facility] RBC, UA 1 /HPF [facility] WBC, UA 1 /HPF [facility] Mucus Moderate [facility] Squam Epithel, UA <1 /HPF [facility] Casts 7 /LPF [facility] Specimen Source [facility] Specimen Urine Performing Organization Address City/State/Zipcode Phone Number [facility] [address] [place] [address] [facility] * POC-Lactic Acid, Venous (07/19/2017 6:27 PM CDT) POC-Lactic Acid, Venous 1.3Comment: TESTED AT [facility] 0.9 - 1.7 mmol/L [address] Specimen Blood Performing Organization Address [facility] [place] [address] [phone] [address] * BCID (07/19/2017 6:24 PM CDT) Scan Result [facility] Specimen Blood Narrative Performed At [facility] Result comments: [facility] HAEMOPHILUS INFLUENZA DETECTED First line therapy: ceftriaxone meropenem if critically ill or history of an ESBL producing pathogen De-escalate based on susceptibilities Other organisms and resistance markers not contained in this PCR panel cannot be excluded and follow-up of traditional culture results is required. This sample was tested at the [facility] Clinical Microbiology Laboratory using the [employer] Blood Culture ID Panel. This test is FDA cleared for in vitro diagnostic use and has been verified and approved by the [facility] Clinical Microbiology laboratory for clinical use. Reference Range: Not Detected Performing Organization Address [facility] Phone Number [address] * Type and screen, automated (07/19/2017 4:17 PM CDT) ABO/RH AUTOMATED (BEAKER) O POSITIVE [facility] Ab Scrn NEGATIVE [facility] Specimen Blood Performing Organization Address City/[facility] Phone Number [address] [address] [phone] [place] [address] * Hemoglobin and hematocrit (07/19/2017 3:44 PM CDT) Hemoglobin 7.9 (L) 13.7 - 17.5 GM/DL [facility] Hematocrit 26.8 (L) 40.1 - 51.0 % [facility] Specimen Blood Performing Organization Address [facility] Phone Number [facility] [address] [place], [place] [phone] [facility] * AFB culture + smear (07/19/2017 1:33 PM CDT) Result No acid-fast bacilli isolated [facility] in 42 days [facility] AFB Smear No acid fast bacilli seen [facility] Specimen Bronch Washing - Lung, Right Performing Organization Address City/[facility]/Zipcode Phone Number [facility] [address] [place] [address] [facility] * Bronchial culture + gram stain (07/19/2017 1:33 PM CDT) Result HAEMOPHILUS INFLUENZAE [facility] (A)Comment: Beta-lactamase [facility] negative Gram Stain Result 1+ WBCs [facility] Gram Stain Result <1+ gram positive cocci in [facility] chains and pairs [facility] Specimen Bronch Washing - Lung, Right Narrative Performed At 2+ Normal respiratory bethany present [facility] Performing Organization Address City/[facility] Phone Number [address] [address] [phone] [place] [address] * Fungus culture + smear (07/19/2017 1:33 PM CDT) Result No fungus isolated in 28 days [facility] Fungus Smear No fungi seen [facility] Specimen Bronch Washing - Lung, Right Performing Organization Address City/[facility]/Zipcode Phone Number [facility] [address] [place] [phone] [facility] * SPIN/CONCENTRATION CHARGE (07/19/2017 1:33 PM CDT) Concentration charged Done [facility] Specimen Bronch Washing - Lung, Right Performing Organization Address City/[facility]/Zipcode Phone Number [place] [phone] [place] [address] [facility] * REPORT OF PROCEDURE - ENDOSCOPY URL (07/19/2017 1:26 PM CDT) Narrative Performed At * EBUS FNA REQUEST (07/19/2017 1:00 PM CDT) Only the most recent of 2 results within the time period is included. Cytology See Separate Report [facility] Specimen EBUS Fine Needle Aspirate - Lung, Right Lower Lobe Performing Organization Address City/State/Zipcode Phone Number [address] [address] MEDICAL CENTER * Fine Needle Aspiration by EBUS (07/19/2017 1:00 PM CDT) Only the most recent of 2 results within the time period is included. Case Report Medical Cytology [facility] Report [facility] Case: [id number] Authorizing Provider:Grant Rasheed MDCollecte d: 07/19/2017 1300 [facility] SERVICESReceived: 07/19/2017 1400 Pathologist: Juani Santiago MD Specimen:Lung, Right Lower Lobe, Routine cyto in CRR DIAGNOSIS RIGHT LOWER LOBE LUNG FNA BY [facility] CLINICIAN (CYTOSPINS AND CELL [facility] BLOCK OF ASPIRATE): - SQUAMOUS CELL CARCINOMA (SEE COMMENT) Signing Pathologist Direct Phone Line: [phone] COMMENT Please see cases [id number] and [facility] [id number] [facility] CPT Code(s) 08849, 6[address]45 [facility] CLINICAL DATA Right lower lobe lung mass [facility] with mediastinal adenopathy [facility] SPECIMEN SOURCE RIGHT LOWER LOBE LUNG FNA [facility] GROSS DESCRIPTION 25 mls in cytorich red; 4 [facility] cytospins, cell block [facility] Collected: [id number] Received: [id number] MICROSCOPIC DESCRIPTION The cytospins and the [facility] cellblock show squamous cell [facility] carcinoma, moderately differentiated with keratinization and associated with necrosis. Technical component was [facility] performed at Center, Department of [facility] Pathology, [address] [place] [id number], Professional component [facility] was performed at Center, Department of [facility] Pathology, [address] [place] [id number], Specimen EBUS Fine Needle Aspirate - Lung, Right Lower Lobe Performing Organization Address [facility] Phone Number [address] [phone] [facility] * Flow Cytometry Requisition (07/19/2017 12:53 PM CDT) Flow Cytometry See Separate Report [facility] Case # [id number] [facility] Specimen EBUS Fine Needle Aspirate - Lymph Node, Subcarinal, Station 7 Performing Organization Address [facility] Phone Number [address] [address] [facility] * Flow Cytometry (07/19/2017 12:53 PM CDT) Case Report Flow Cytometry [facility] Report [facility] Case: [id number] Authorizing Provider:Gilbert Burris MDCollecte d: 07/19/2017 1253 [facility] SERVICESReceived: 07/20/2017 1028 Pathologist: Josue Elliott MD Specimen:Other Flow Interpretation SUBCARINAL LYMPH NODE STATION [place] [address], FLOW CYTOMETRY: [facility] NO MONOCLONAL B CELL POPULATION. NO ABERRANT T CELL POPULATION. LYMPHOID EVENTS ARE SCARCE AND STUDY IS LIMITED. CORRELATION WITH MORPHOLOGIC FINDINGS REQUIRED. CPT Code(s) 21600 [facility] CLINICAL HISTORY Lymphadenopathy [facility] SPECIMEN SOURCE SUBCARINAL LYMPH NODE STATION [address] CELLULAR BIOMARKER CD8, surface-kappa, CD56, [facility] ANALYSIS surface-lambda, CD5, CD19, [facility] CD10, CD3, CD20, CD4, CD45 IMMUNOPHENOTYPIC FINDINGS Specimen Viability: 76.4% [facility] Blasts: A significant blast [facility] population is not identified. Lymphocytes: Bright [...] debris. DISCLAIMER These tests were developed and [facility] their performance [facility] characteristics determined by [facility]. They have not been cleared or approved [...] Other Performing Organization Address City/State/Zipcode Phone Number [facility] [address] [place] [address] [facility] * CBC (Hemogram only) (07/19/2017 11:48 AM CDT) WBC 12.8 (H) 3.5 - 10.5 K/L [facility] RBC 3.50 (L) 4.63 - 6.08 M/L [facility] Hemoglobin 7.9 (L) 13.7 - 17.5 GM/DL [facility] Hematocrit 26.2 (L) 40.1 - 51.0 % [facility] MCV 74.9 (L) 79.0 - 92.2 fL [facility] MCH 22.6 (L) 25.7 - 32.2 pg [facility] MCHC 30.2 (L) 32.3 - 36.5 GM/DL [facility] RDW 19.1 (H) 11.6 - 14.4 % [facility] Platelets 299 150 - 450 K/CU MM [facility] MPV 8.9 (L) 9.4 - 12.4 fL [facility] nRBC 0 0 - 0 /100 WBC [facility] Specimen Blood Performing Organization Address City/State/Zipcode Phone Number [facility] [address] [place] [address] [facility] after 05/02/2017 Insurance Payer Benefit Subscriber ID Type Phone Address Plan / Group [facility] x[facility]xx MEDICARE ADV Advance Directives For more information, please contact: [address] [address] Date Inactivated Comments Code Status Date Activated 07/25/2017 4:22 PM Full Code 07/19/2017 4:06 PM This code status was determined by: Patient
--- NOTE | 2018-05-03 23:20 | NUR ---
Received report from Renee ER nurse. Patient arrived to unit via wheelchair with his girlfriend and daughter. No pain or distress. call light within reach.
[2018-05-04] VITALS: BP 133/78
[2018-05-04 00:05] VITALS: BP 133/78
[2018-05-04 04:00] VITALS: BP 100/78
[2018-05-04 05:31] LABS: BASOPHILS % 0.6 % (0.0-1.0); EOSINOPHILS # (AUTO) 0.3 (0.0-0.4); EOSINOPHILS % 5.3 % (0.0-6.0); HEMATOCRIT 33.6 % (38.2-49.6); HEMOGLOBIN 10.8 g/dL (14.0-18.0); LYMPHOCYTES # (AUTO) 1.9 (1.0-3.2); LYMPHOCYTES % 30.4 % (18.0-39.1); MEAN CORPUSCULAR HEMOGLOBIN 29.9 pg (28-32); MEAN CORPUSCULAR HGB CONC 32.1 g/dL (31-35); MEAN CORPUSCULAR VOLUME 93.1 fL (81-99); MONOCYTES # (AUTO) 0.7 (0.2-0.8); NEUTROPHILS # (AUTO) 3.2 (2.1-6.9); NEUTROPHILS % 52.4 % (38.7-80.0); RED BLOOD COUNT 3.61 x10e6/uL (4.3-5.7); RED CELL DISTRIBUTION WIDTH 17.1 % (11.7-14.4)
[2018-05-04 05:35] LABS: PLATELET COUNT 285 x10e3/uL (140-360)
[2018-05-04 05:48] LABS: INR 0.85; PROTHROMBIN TIME 12.4 seconds (11.9-14.5)
[2018-05-04 05:49] LABS: PARTIAL THROMBOPLASTIN TIME 42.7 seconds (23.8-35.5)
[2018-05-04 05:59] LABS: CREATINE KINASE MB 1.4 ng/mL (0-5.0)
[2018-05-04 06:22] LABS: ALANINE AMINOTRANSFERASE 22 IU/L (0-55); ALBUMIN 3.1 g/dL (3.5-5.0); ALKALINE PHOSPHATASE 104 IU/L (40-150); BLOOD UREA NITROGEN 15 mg/dL (7-26); CALCIUM 9.6 mg/dL (8.4-10.2); CARBON DIOXIDE 24 mmol/L (22-29); EST GLOMERULAR FILTRATION RATE > 60 ML/MIN (60-); GLUCOSE 102 mg/dL (74-118); POTASSIUM 3.9 mmol/L (3.5-5.1); SODIUM 135 mmol/L (136-145)
--- NOTE | 2018-05-04 06:51 | NUR ---
Report given to oncoming nurse. Patient is in no pain or distress. Call light within reach.
[2018-05-04 06:52] LABS: BUN/CREATININE RATIO 20 (6-25); CHLORIDE 106 mmol/L (98-107); CREATININE, SERUM 0.81 mg/dL (0.72-1.25)
[2018-05-04 07:45] VITALS: BP 100/58
[2018-05-04 08:00] VITALS: BP 100/58
--- NOTE | 2018-05-04 08:39 | NUR ---
SOCIAL WORK INITIAL ASSESSMENT Injector Assembler to bedside to discuss plan of care with patient/family. CM/SW role and care transitions discussed. Anticipated discharge plan discussed along with duration of care. CM/SW discussed patients right to make decisions in care. CM/SW work hours given. Patient lives: IN HOUSE WITH SON AND GRANDSON Admit/Transfer: VIA HOME POA/Emergency contact: DAUGHTER KAREN Current/Previous Home Health: NONE PCP/Follow-up Care: [facility] Current/Previous DME: NONE Other Services: MAINTENANCE CHEMO EVERY 3 WEEKS WITH LAST TREATMENT 10 DAYS AGO, DID A SCAN AND FOUND A BLOOD CLOT AND PRESCRIBED ELIQUIS WHICH WAS ALMOST 600.00 WHICH HE CANT AFFORD, HE CALLED OFFICE AND WAS SENT HERE TO GET MEDICATION AND WILL HAVE ANOTHER SCAN ON TUESDAY. Employment Status: RETIRED Areas of Concerns: NONE Referral Needs: NONE Education Needs: ALTERNATE MEDICATIONS IMM/MARTE given and signed (if applicable): MARTE Goal for discharge: RETURN HOME CM/SW left business card at the bedside with contact information. Name and number was also written on the patients whiteboard. Patient verbalized understanding of discussion. CM will follow-up with ongoing discharge and transition of care needs.
[2018-05-04] MEDS ORDERED: ENOXAPARIN SODIUM INJ 100 MG/ML SYR SC SCH (09:00)
[2018-05-04 11:33] VITALS: BP 127/80
--- NOTE | 2018-05-04 14:40 | NUR ---
Pt discharged home. Pt instructed to slat pickler eliquis prescription at [facility] pharmacy on [facility].
== END 2018-05-04 14:35 | disposition home or self-care (01) ==
LOC: ER 21:03 → ERHOLD 22:54 → IMCU 23:24
PROVIDERS: ADMIT Internal Medicine; ATTEND Internal Medicine
DX: I26.99 Other pulmonary embolism without acute cor pulmonale (principal); C34.90 Malignant neoplasm of unspecified part of unspecified bronchus or lung; M10.9 Gout, unspecified; J90 Pleural effusion, not elsewhere classified
CPT/HCPCS: 36415 ×2; 71045; 80053 ×2; 82550 ×2; 82553 ×2; 84484 ×2; 85025 ×2; 85610 ×2; 85730 ×2; 93005; 99284; G0378 ×2; J1650 ×2; J7030

== ENCOUNTER 2023-12-01 23:01 | Inpatient (IN) | payer MEDICARE ==
[~2023-12-01] VITALS: Ht 180.3 cm; Wt 90.8 kg
[~2023-12-01 23:01] MED LIST: ALLOPURINOL300 MG PO; AUGMENTIN 875-1 EACH PO; SENNOSIDES8.6 MG PO
[2023-12-01] MEDS: ACETAMINOPHEN 325 MG TAB PO ONE (23:42)
[2023-12-01] MEDS: SODIUM CHLORIDE 0.9% 1000ML 1,000 ML IV ONE (23:42)
[2023-12-02] VITALS (8 sets, daily range): BP systolic 101; BP diastolic 70; PULSE 98–118; RESP 18–22; TEMP 98.1–98.8; O2SAT 97–100
[2023-12-02 00:18] LABS: BASOPHILS % 0.2 % (0.0-1.0); EOSINOPHILS # (AUTO) 0.2 (0.0-0.4); EOSINOPHILS % 2.2 % (0.0-6.0); HEMATOCRIT 29.3 % (38.2-49.6); HEMOGLOBIN 8.9 g/dL (14.0-18.0); LYMPHOCYTES # (AUTO) 1.4 (1.0-3.2); LYMPHOCYTES % 14.1 % (18.0-39.1); MEAN CORPUSCULAR HEMOGLOBIN 30.4 pg (28-32); MEAN CORPUSCULAR HGB CONC 30.4 g/dL (31-35); MONOCYTES # (AUTO) 0.8 (0.2-0.8); MONOCYTES % 7.6 % (4.4-11.3); NEUTROPHILS # (AUTO) 7.3 (2.1-6.9); NEUTROPHILS % 74.2 % (38.7-80.0); PLATELET COUNT 176 x10e3/uL (140-360); RED BLOOD COUNT 2.93 x10e6/uL (4.3-5.7); RED CELL DISTRIBUTION WIDTH 17.1 % (11.7-14.4); WHITE BLOOD COUNT 9.86 x10e3/uL (4.8-10.8)
[2023-12-02 00:20] LABS: ALANINE AMINOTRANSFERASE 18 IU/L (0-55); ALBUMIN 2.9 g/dL (3.5-5.0); ALKALINE PHOSPHATASE 61 IU/L (40-150); ANION GAP 13.2 mmol/L (8-16); BILIRUBIN,TOTAL 0.6 mg/dL (0.2-1.2); BLOOD UREA NITROGEN 22 mg/dL (7-26); BUN/CREATININE RATIO 25 (6-25); CARBON DIOXIDE 26 mmol/L (22-29); CHLORIDE 102 mmol/L (98-107); CREATININE, SERUM 0.87 mg/dL (0.72-1.25); EST GLOMERULAR FILTRATION RATE 91 ML/MIN (>=60); GLUCOSE 206 mg/dL (74-118); POTASSIUM 4.2 mmol/L (3.5-5.1); SODIUM 137 mmol/L (136-145); TOTAL PROTEIN 5.9 g/dL (6.5-8.1)
[2023-12-02 00:26] LABS: TROPONIN I < 0.05 ng/mL (0.0-0.40)
[2023-12-02 00:29] LABS: INR 1.28; PROTHROMBIN TIME 16.6 seconds (11.9-14.5)
[2023-12-02 00:30] LABS: PARTIAL THROMBOPLASTIN TIME 37.7 seconds (23.8-35.5)
[2023-12-02 00:38] LABS: CREATINE KINASE 17 IU/L (30-200)
[2023-12-02 00:46] LABS: COVID 19 ANTIGEN NOT DETECTED (NEGATIVE)
[2023-12-02 00:52] LABS: INFLUENZAE A&B ANTIGEN (RAPID) NEGATIVE (NEGATIVE); RESPIRATORY SYNC. VIRUS NEGATIVE (NEGATIVE)
[2023-12-02] MEDS ORDERED: DEXTROSE 50% SYRINGE 50 ML IV PRN (01:15)
[2023-12-02] MEDS ORDERED: ONDANSETRON HCL INJ 2MG/ML 2ML 2 MG/ML VIAL IV PRN (01:15)
[2023-12-02] MEDS ORDERED: Azithromycin IV 500 MG 10 ML VIAL ONE (01:26)
[2023-12-02] MEDS ORDERED: Vancomycin IV 1 GM VIAL ONE (01:28)
[2023-12-02] MEDS: SODIUM CHLORIDE 0.9% 1000ML 1,000 ML IV SCH (01:30)
[2023-12-02] MEDS ORDERED: HYDRALAZINE HCL 20 MG/ML VIAL IV PRN (03:00)
[2023-12-02] MEDS ORDERED: MAGNESIUM/ALUMINUM/SIMETHICONE 30 ML UDC PO PRN (03:00)
[2023-12-02] MEDS ORDERED: ALBUTEROL SULF 0.083% NEB SOLN 3 ML NEB NEB PRN (03:00)
[2023-12-02] MEDS ORDERED: DOCUSATE SODIUM 100 MG CAP PO PRN (03:00)
[2023-12-02] MEDS ORDERED: GUAIFENESIN/DEXTROMETHORPHAN LIQD 5 ML UDC PO PRN (03:00)
[2023-12-02] MEDS ORDERED: HYDROCODONE/APAP 5MG-325MG TAB PO PRN (03:00)
[2023-12-02] MEDS: Vancomycin IV 1 GM in SODIUM CHLORIDE 0.9% 250ML 250 ML IV SCH (03:17)
[2023-12-02 05:15] LABS: CLARITY,URINE CLEAR (CLEAR); COLOR,URINE YELLOW (YELLOW); PH,URINE 6.5 (5 - 7)
[2023-12-02 05:16] LABS: BILIRUBIN,URINE NEGATIVE (NEGATIVE); GLUCOSE, URINE NEGATIVE (NEGATIVE); KETONES,URINE NEGATIVE (NEGATIVE); LEUKOCYTE ESTERASE ,URINE NEGATIVE (NEGATIVE); NITRITE,URINE NEGATIVE (NEGATIVE); PROTEIN,URINE DIPSTICK NEGATIVE (NEGATIVE); URINE UROBILINOGEN 1 mg/dL (0.2 - 1)
[2023-12-02 05:30] LABS: WBC,URINE (MAN) 0-5 /HPF (0-5)
[2023-12-02 05:31] LABS: BACTERIA,URINE FEW /HPF; EPITHELIAL CELLS,URINE FEW /LPF; RBC,URINE 0-5 /HPF (0-5)
[2023-12-02] MEDS: INSULIN REGULAR, HUMAN 100 UNIT/1 ML SQ SCH (07:30)
[2023-12-02] MEDS: ALLOPURINOL 300 MG TAB PO SCH (09:40)
[2023-12-02] MEDS: MULTIVITAMINS/MINERALS TAB PO SCH (09:40)
[2023-12-02] MEDS: SENNOSIDES 8.6 MG TAB PO SCH (09:40)
[2023-12-02] MEDS ORDERED: ELIQUIS5 MG PO (09:53)
[2023-12-03] VITALS (8 sets, daily range): BP systolic 92–111; BP diastolic 57–76; PULSE 64–127; RESP 16–22; TEMP 97.8–99.3; O2SAT 94–100
[2023-12-03 06:10] LABS: BASOPHILS % 0.1 % (0.0-1.0); EOSINOPHILS # (AUTO) 0.2 (0.0-0.4); EOSINOPHILS % 2.1 % (0.0-6.0); HEMATOCRIT 30.2 % (38.2-49.6); HEMOGLOBIN 9.2 g/dL (14.0-18.0); LYMPHOCYTES # (AUTO) 1.6 (1.0-3.2); LYMPHOCYTES % 18.5 % (18.0-39.1); MEAN CORPUSCULAR HEMOGLOBIN 30.6 pg (28-32); MEAN CORPUSCULAR HGB CONC 30.5 g/dL (31-35); MEAN CORPUSCULAR VOLUME 100.3 fL (81-99); MONOCYTES # (AUTO) 0.9 (0.2-0.8); MONOCYTES % 10.3 % (4.4-11.3); NEUTROPHILS # (AUTO) 5.9 (2.1-6.9); NEUTROPHILS % 67.4 % (38.7-80.0); PLATELET COUNT 137 x10e3/uL (140-360); RED BLOOD COUNT 3.01 x10e6/uL (4.3-5.7); WHITE BLOOD COUNT 8.76 x10e3/uL (4.8-10.8)
[2023-12-03 06:30] LABS: ALBUMIN 2.8 g/dL (3.5-5.0); ALBUMIN/GLOBULIN RATIO 0.9 (0.8-2.0); ANION GAP 14.2 mmol/L (8-16); BILIRUBIN,TOTAL 0.7 mg/dL (0.2-1.2); CALCIUM 8.9 mg/dL (8.4-10.2); CREATININE, SERUM 0.73 mg/dL (0.72-1.25); POTASSIUM 4.2 mmol/L (3.5-5.1); TOTAL PROTEIN 5.8 g/dL (6.5-8.1)
[2023-12-04] VITALS (9 sets, daily range): BP systolic 97–110; BP diastolic 64–76; PULSE 64–129; RESP 16–22; TEMP 97.9–99; O2SAT 96–98
[2023-12-04] MEDS: METOPROLOL SUCCINATE 50 MG TAB XL PO SCH (04:50)
[2023-12-04] MEDS: ACETAMINOPHEN 325 MG TAB PO PRN (04:53)
[2023-12-04] MEDS ORDERED: TOPROL XL50 MG PO (16:32)
[2023-12-04] MEDS ORDERED: AMOX TR-K CLV1 EAC2 PO (16:32)
[2023-12-04] MEDS: MELATONIN 3 MG TAB PO PRN (21:49)
[2023-12-05] VITALS (8 sets, daily range): BP systolic 97–107; BP diastolic 64–81; PULSE 69–122; RESP 16–21; TEMP 97.7–99.3; O2SAT 95–100
[2023-12-05] MEDS: METOPROLOL SUCCINATE 50 MG TAB XL PO SCH (08:23)
== END 2023-12-05 12:15 | disposition home or self-care (01) | DRG 871 ==
LOC: ER 23:06 → ERHOLD 12-02 01:15 → MED/SURG3 12-02 20:24
PROVIDERS: ADMIT Internal Medicine Critical Care Medicine; ATTEND Internal Medicine Critical Care Medicine
PROC: 3E0333Z Introduction of Anti-inflammatory into Peripheral Vein, Percutaneous Approach (ICD-10-PCS; principal; 2023-12-02)
DX: A41.9 Sepsis, unspecified organism (principal); J18.9 Pneumonia, unspecified organism; C34.90 Malignant neoplasm of unspecified part of unspecified bronchus or lung; J91.0 Malignant pleural effusion; Z11.52 Encounter for screening for COVID-19; M10.9 Gout, unspecified; K44.9 Diaphragmatic hernia without obstruction or gangrene; Z79.01 Long term (current) use of anticoagulants; Z95.828 Presence of other vascular implants and grafts; Z92.21 Personal history of antineoplastic chemotherapy; Z53.29 Procedure and treatment not carried out because of patient's decision for other reasons; Z87.891 Personal history of nicotine dependence
CPT/HCPCS: 0223U; 36415; 71045; 80053; 81001; 82550; 82948; 83605; 84484; 85025; 85610; 85730; 87040; 87400; 87420; 93005; 94799; 99284; J0696; J7030